=== PATIENT | male | born 1950 | race Asian ===

== ENCOUNTER 2017-05-16 23:49 | Inpatient (IN) | payer MEDICARE, MEDICAID ==
--- NOTE | 2017-05-17 00:15 | ED Physician Chart ---
ED Chief Complaint/HPI - Patient Information Date Seen:: 05/17/17 Time Seen:: 00:10 Chief Complaint:: abnormal labs History of Present Illness:: location: general quality: abnormal labs severity: moderate duration: one day context: ventiilator dependent SNF patient had routine labs today, CBC shows hemoglobin is very low. pt case discussed with PCP Dr. Ochoa who advised send pt to ER for medical screening examination and further treatment. hemoglobin 5.8 and 16.8 hct. pt is vent dependent and prior history of MO/dementia. medics report stable vital signs during transport. mod factors: none assoc s/s: none PSH: tracheostomy, PEG tube hx from medics, paperwork Allergies:: Allergies Allergy/AdvReac Type Severity Reaction Status Date / Time No Known Allergies Allergy Verified 05/17/17 00:10 Historian:: EMS Review:: Nurse's Note Reviewed, EMS run form Reviewed ED Review of Systems - Review of Systems General/Constitutional: No fever (unable to assess due to patient baseline neuro status, vent dependent, noncommunicative) ED Past Medical History - Past Medical History Past Medical History: HTN, DM, CAD, Asthma/COPD, PUD/GERD, Seizures Family History: None Social History: Non Smoker, No Alcohol, No Drug Use, Single, Care Facility Surgical History: PEG/GTube, other (tracheostomy) Psychiatricy History: Dementia Medication: Reviewed Family Medical History - Family Member Mother History Unknown: Yes ED Physical Exam - Physical Examination General/Constitutional: Awake, Well-developed, well-nourished, Alert, No distress, Non-toxic appearing Head: Atraumatic Eyes: Lids, conjuctiva normal Skin: Nl inspection, No skin lesions, No ecchymosis ENMT: External ears, nose nl Neck: Nontender, No nuchal rigidity Respiratory: Nl effort/Exclusion, Clear to Auscultation, No Wheeze/Rhonchi/Rales Cardio Vascular: RRR, No murmur, gallop, rubs, NL S1 S2 GI: No tenderness/rebounding/guarding, Normal BS's, No mass/bruits, No McBurney tenderness (PEG tube site is clean and dry) Extremities: No tenderness or effusion (pt with extensor deformity bilateral lower limbs, ) ED Labs/Radiology/EKG Results - Lab Results Results: Laboratory Tests 05/17/17 05/17/17 05/17/17 00:00 00:00 00:00 WBC 9.9 Corrected WBC (auto) 9.3 RBC 2.25 L Hgb 6.7 L* Hct 19.3 L* MCV 85.8 MCH 29.9 MCHC Differential 34.8 RDW 17.8 Plt Count 238 MPV 5.5 Band Neutrophils % 6 Neutrophils (Manual) 45 Lymphocytes 48 Monocytes 1 L Nucleated RBCs 6.0 H Hypochromia 1+ Platelet Estimate ADEQUATE Polychromasia 1+ Sodium 125 L Potassium 4.0 Chloride 84 L Carbon Dioxide 35.2 H Anion Gap 9.8 BUN 36 H Creatinine 1.0 Est GFR ( Amer) > 60.0 Est GFR (Non-Af Amer) > 60.0 BUN/Creatinine Ratio 36.0 Glucose 140 H Whole Bld Lactic Acid 1.88 Calcium 10.0 Total Bilirubin 0.4 AST 34 ALT 43 Alkaline Phosphatase 153 H Total Protein 6.3 Albumin 2.8 L Globulin 3.5 Albumin/Globulin Ratio 0.8 L - Radiology Results Results: CXR no acute pneumothorax no acute rib fracture no acute infiltrate blunting of left costophrenic angle ER READ - EKG Interpretations Comments:: EKG sinus tachycardia 103 sinus or ectopic atrial tachycardia nonspecific T abnormalities, anterior leads borderline prolonged QT interval no acute ST elevation no acute ST depression Abnormal EKG with chronic findings ER READ ED Assessment - Assessment General Assessment: pt with stable vital signs ventilator settings from [facility] have been reapplied in ER. pt appears visually comfortable, stable blood pressure, normal heart rate. except that PEEP is 30-40s. RT report that when trying to perform tracheal suctioning that the suction tube is able to be passed except the last 5 to 10 cm of tubing. it is possible the patient has a mucus plug or other anatomic abnormality that is preventing full passage of suction tubing. will advise pulmonary consult and possible bronchoscopy, final decision to be made by rn complex care. CXR does not show acute pneumothorax or acute infiltrate, no patchy infiltrates. no obvious suggestion of ARDS. in addition, patient chart is reviewed thoroughly and no indication of acute CVA is reported however, patient facies and upper and lower limbs appear consistent with patient who has had prior CVA. it is possible that [facility] did not send complete past medical history. ED Septic Shock - . Is Septic Shock (SBP<90, OR Lactate>4 mmol\L) present?: No ED Reassessment (Disposition) - Reassessment Reassessment:: pt in stable condition while in ER. vent settings maintained. Reassessment Condition:: Unchanged - Diagnosis Diagnosis:: acute anemia acute hyponatremia acute hypochloremia - Patient Disposition Discharge/Transfer:: Acute Care w/in this hosp Admitted to:: ICU Admitting Medical Physician:: Tello Ochoa Time:: 02:00 Condition at Disposition:: Stable
[2017-05-17 00:25] LABS: MEAN CELL VOLUME 85.8 fl (80-99); MEAN CORPUSCULAR HEMOGLOBIN 29.9 pg (27.0-31.0); MEAN CORPUSCULAR HGB CONC 34.8 pg (28.0-36.0); MEAN PLATELET VOLUME 5.5 fl; PLATELET COUNT 238 Th/cmm (150-400); RED BLOOD COUNT 2.25 Mil/cmm (3.80-5.80); RED CELL DISTRIBUTION WIDTH 17.8 % (11.5-20.0); WHITE BLOOD COUNT 9.9 Th/cmm (4.8-10.8)
[2017-05-17 00:28] LABS: HEMATOCRIT 19.3 % (41.0-60); HEMOGLOBIN 6.7 gm/dL (12-16)
[2017-05-17 00:37] LABS: ALB/GLOB RATIO 0.8 (1.0-1.8); ALBUMIN 2.8 gm/dL (4.2-5.5); ALKALINE PHOSPHATASE 153 U/L (34-104); ANION GAP 9.8 (7.0-16.0); BILIRUBIN,TOTAL 0.4 mg/dL (0.3-1.0); BUN - UREA NITROGEN 36 mg/dL (7-25); CARBON DIOXIDE 35.2 mEq/L (21.0-31.0); CHLORIDE 84 mEq/L (98-107); GFR AFRICAN-AMERICAN > 60.0 ml/min (>90); GFR NON AFRICAN-AMERICAN > 60.0 ml/min; GLUCOSE 140 mg/dL (70-105); SGOT 34 U/L (13-39); SGPT/ALT 43 U/L (7-52); SODIUM SERUM 125 mEq/L (136-145); TOTAL PROTEIN,SERUM 6.3 gm/dL (6.0-8.3)
[2017-05-17 00:52] LABS: BAND NEUTROPHILE 6 % (0-10); CORRECTED WBC 9.3 Th/cmm; HYPOCHROMIA 1+; LYMPHOCYTE 48 % (20-50); MONOCYTE 1 % (2-10); NEUTROPHILS 45 % (40-80); PLATELET ESTIMATE ADEQUATE (NORMAL); POLYCHROMASIA 1+; TOTAL CELLS COUNTED 100
[2017-05-17 01:57] LABS: URINE MICROSCOPIC INDICATED? YES; URINE SOURCE FOLEY PORT
[2017-05-17 02:01] LABS: URINE BILIRUBIN NEGATIVE (NEGATIVE); URINE BLOOD TRACE (NEGATIVE); URINE GLUCOSE (UA) NEGATIVE (NEGATIVE); URINE KETONE NEGATIVE (NEGATIVE); URINE LEUKOCYTE ESTERASE MODERATE (NEGATIVE); URINE NITRATE POSITIVE (NEGATIVE); URINE PROTEIN TRACE mg/dL (NEGATIVE); URINE UROBILINOGEN 0.2 E.U./dL (0.2 - 1.0)
[2017-05-17 02:12] LABS: URINE CLARITY CLEAR (CLEAR); URINE COLOR YELLOW; URINE RBC 0-2 /hpf (0-5)
[2017-05-17 02:13] LABS: URINE BACTERIA MODERATE /hpf (NONE SEEN); URINE EPITHELIAL CELLS FEW /lpf (FEW)
[2017-05-17] MEDS ORDERED: Piperacillin Sodium/Tazobact 3.375 gm Vial IV ONE (02:48)
[2017-05-17 05:05] LABS: EOSINOPHILE ABSOLUTE 0.3 Th/cmm (0.1-0.4); LYMPHOCYTE ABSOLUTE 1.7 Th/cmm (1.5-3.0); MONOCYTE ABSOLUTE 0.8 Th/cmm (0.3-1.0)
[2017-05-17 05:17] LABS: ANION GAP 11.6 (7.0-16.0); BUN - UREA NITROGEN 35 mg/dL (7-25); CALCIUM SERUM 9.9 mg/dL (8.6-10.3); CARBON DIOXIDE 34.6 mEq/L (21.0-31.0); CHLORIDE 84 mEq/L (98-107); CREATININE - SERUM 1.1 mg/dL (0.7-1.3); GFR AFRICAN-AMERICAN > 60.0 ml/min (>90); GFR NON AFRICAN-AMERICAN > 60.0 ml/min; GLUCOSE 110 mg/dL (70-105); POTASSIUM SERUM 4.2 mEq/L (3.5-5.1); SODIUM SERUM 126 mEq/L (136-145)
[2017-05-17 05:20] VITALS: BP 91/34
[2017-05-17 05:24] LABS: HEMATOCRIT 17.2 % (41.0-60); RED BLOOD COUNT 2.01 Mil/cmm (3.80-5.80)
[2017-05-17 05:25] LABS: % LYMPHOCYTES 17.6 % (20.0-50.0); % NEUTROPHILS 71.2 % (40.0-80.0); MEAN CELL VOLUME 85.8 fl (80-99); MEAN CORPUSCULAR HEMOGLOBIN 30.1 pg (27.0-31.0); MEAN PLATELET VOLUME 5.9 fl; PLATELET COUNT 248 Th/cmm (150-400)
[2017-05-17 05:26] LABS: % BASOPHILS 0.5 % (0.0-2.0); % EOSINOPHILS 2.9 % (0.0-5.0); % MONOCYTES 7.8 % (2.0-10.0); NEUTROPHILE ABSOLUTE 6.9 Th/cmm (1.8-8.0)
[2017-05-17 05:28] LABS: WHITE BLOOD COUNT 9.7 Th/cmm (4.8-10.8)
[2017-05-17] MEDS ORDERED: Magnesium Hydroxide (MOM) 30 mL UDC GT PRN (08:11)
--- NOTE | 2017-05-17 08:11 | Diagnostic Imaging Report ---
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 Tracheostomy tube is seen at midline. Increased interstitial lung markings are seen with left basal pleural thickening versus small left effusion. No focal consolidation identified. Heart size normal. Atherosclerosis is noted. Biapical pleural thickening is also noted. The osseous structures are intact. IMPRESSION: Minimal tracheostomy tube, please correlate with clinical findings. Small left effusion versus left basal pleural thickening. Biapical pleural thickening is also noted Chronic interstitial lung changes with no focal consolidation identified. Note, however, faint infiltrative the left base cannot be excluded.
[2017-05-17] MEDS: Chlorhexidine Gluconate 0.12% 15mL Mouthwash MM SCH ×2 (08:57→19:55)
[2017-05-17] MEDS: Sodium Chloride 0.9% 1,000 ML IV SCH ×2 (08:58→21:34)
[2017-05-17] MEDS ORDERED: INSULIN HUMAN REGULAR 100 UNITS/ML UNIT SUBQ SCH (09:00)
[2017-05-17] MEDS ORDERED: Chlorhexidine Gluconate 0.12% 480mL Bottle MM SCH (09:00)
[2017-05-17] MEDS: Pantoprazole 40 mg/Packet GT SCH (09:52)
[2017-05-17] MEDS: Multivitamin w/ Minerals Tab GT SCH (09:52)
[2017-05-17] MEDS ORDERED: VTE Chemical Prophylaxis Screen/Admission MC PRN (11:12)
--- NOTE | 2017-05-17 12:11 | Consultation ---
Consult Note - Consult Note Service Date: 05/17/17 Referring Physician: Tello Ochoa Consult Note: PHYSICIAN Consultation Note: Date of Admission: 05/17/17 Purpose of Consultation: UTI, bronchitis. Chief Complaint: Patient NIKI CORNELL was admitted to location Intensive Care Unit with SEVERE ANEMIA, PNA & UTI. History of Present Illness: The patient is a 70-year-old female with a past medical history of severe dementia, brain surgery, foot surgery, and CVA, brought in from nursing facility for swelling of both lower extremities with redness. The patient also has some redness of the lower abdominal fold. On initial evaluation, the patient was afebrile and WBC count was 11,000. The patient was started on vancomycin and Zosyn and ID consult was called for antibiotic management. Past Medical History: severe dementia, brain surgery, foot surgery, and CVA. Allergies Allergy/AdvReac Type Severity Reaction Status Date / Time No Known Allergies Allergy Verified 05/17/17 00:10 Vital Signs Temp 98.4 F 05/17/17 08:00 Pulse 97 05/17/17 11:00 Resp 14 05/17/17 11:00 BP 118/72 05/17/17 11:00 Pulse Ox 98 05/17/17 11:00 Intake & Output 05/16/17 05/17/17 05/17/17 18:59 06:59 18:59 Output Total 200 Balance -200 Weight (lbs) 58.967 kg Output: Urine 200 Other: # Bowel Movements 1 Stool Characteristics Soft Laboratory Results - last 24 hr 05/17/17 05/17/17 05/17/17 04:35 04:35 04:35 WBC 9.7 RBC 2.01 L Hgb 6.0 L* Hct 17.2 L* D MCV 85.8 MCH 30.1 MCHC Differential 35.0 RDW 18.0 Plt Count 248 MPV 5.9 Neutrophils % 71.2 Lymphocytes % 17.6 L Monocytes % 7.8 Eosinophils % 2.9 Basophils % 0.5 Sodium 126 L Potassium 4.2 Chloride 84 L Carbon Dioxide 34.6 H Anion Gap 11.6 BUN 35 H Creatinine 1.1 Est GFR ( Amer) > 60.0 Est GFR (Non-Af Amer) > 60.0 BUN/Creatinine Ratio 31.8 Glucose 110 H Calcium 9.9 Blood Type O POSITIVE Antibody Screen NEGATIVE Crossmatch See Detail Home Medication Medication Instructions Recorded Type Acetaminophen [Tylenol] 650 mg GT Q4HR PRN 05/17/17 History Albuterol Nebulizer 2.5mg/3mL 2.5 mg IH Q4HR PRN 05/17/17 History [Albuterol Neb UD*] Albuterol/Ipratropium Neb [Duoneb 3 ml HHN Q2HR PRN 05/17/17 History Neb] Amiodarone [Cordarone] 200 mg GT DAILY 05/17/17 History Chlorhexidine Gluconate 0.12% 15 ml MM BID 05/17/17 History [Peridex] Colistimethate [Colistin] 75 mg INH BID 05/17/17 History Hydralazine HCl 10 mg GT Q6H PRN 05/17/17 History Insulin Human Regular [NovoLIN R] See Protocol SUBQ BID 05/17/17 History Ipratropium Neb 0.5 mg/2.5 mL 0.5 mg HHN Q4HR PRN 05/17/17 History [Atrovent Neb 0.5MG/2.5ML] Levetiracetam [Keppra] 500 mg GT BID 05/17/17 History Magnesium Hydroxide [Milk of 30 ml GT Q4H PRN 05/17/17 History Magnesia] Metoclopramide [Reglan] 5 mg GT Q6H PRN 05/17/17 History Metoprolol Tartrate [Lopressor] 12.5 mg GT DAILY 05/17/17 History Multivitamin w/ Minerals 5 ml GT DAILY 05/17/17 History [Theragran M] Pantoprazole [Protonix] 40 mg GT DAILY 05/17/17 History Prednisone 5 mg GT DAILY 05/17/17 History Vit C/Ascorbate Ca/Ascorb Sod 500 mg GT DAILY 05/17/17 History [Vitamin C 500 mg/15 ml Liquid] Current Medications Generic Name Dose Route Start Last Admin Trade Name Freq PRN Reason Stop Dose Admin Acetaminophen 650 mg 05/17/17 08:11 Tylenol GT 07/16/17 08:10 Q4H PRN Pain or Fever >101 Albuterol Sulfate 2.5 mg 05/17/17 08:11 Albuterol 2.5mg/3ml Neb Ud HHN 07/16/17 08:10 Q4HRT PRN Shortness of Breath Albuterol/Ipratropium 3 ml 05/17/17 08:11 Duoneb Neb N 07/16/17 08:10 Q2HRT PRN Shortness of Breath Amiodarone HCl 200 mg 05/17/17 09:00 05/17/17 08:56 Cordarone GT 07/16/17 08:59 Not Given DAILY PAO Ascorbic Acid 500 mg 05/17/17 09:00 05/17/17 09:52 Vitamin C GT 07/16/17 08:59 500 mg DAILY PAO Administration Chlorhexidine Gluconate 15 ml 05/17/17 08:00 05/17/17 08:57 Peridex MM 07/16/17 07:59 15 ml 0800,2000 PAO Administration Chlorhexidine Gluconate 15 ml 05/17/17 09:00 05/17/17 08:56 Peridex MM 07/16/17 08:59 Not Given BID PAO Colistimethate Sodium 75 mg 05/17/17 10:00 05/17/17 09:33 Colistin N 07/16/17 09:59 Not Given BIDRT PAO Hydralazine HCl 10 mg 05/17/17 08:11 Apresoline GT 07/16/17 08:10 Q6H PRN SBP ABOVE 160 Sodium Chloride 1,000 mls @ 150 mls/hr 05/17/17 08:45 05/17/17 08:58 Nacl 0.9% IV 07/16/17 08:44 150 mls/hr .Q6H40M PAO Administration Piperacillin Sod/Tazobactam 50 mls @ 100 mls/hr 05/17/17 11:00 05/17/17 11:07 Sod 3.375 gm/ Sodium Chloride IV 07/16/17 10:59 100 mls/hr Q8H PAO Administration Insulin Aspart 0 units 05/17/17 12:00 Novolog Insulin Sliding Scale SUBQ 07/16/17 11:59 Q6HR [facility] Protocol Ipratropium Concrete 0.5 mg 05/17/17 08:11 Atrovent Neb 0.5mg/2.5ml N 07/16/17 08:10 Q4HRT PRN Shortness of Breath Levetiracetam 500 mg 05/17/17 09:00 05/17/17 09:52 Keppra PO 07/16/17 08:59 500 mg BID PAO Administration Magnesium Hydroxide 30 ml 05/17/17 08:11 Milk Of Magnesia GT 07/16/17 08:10 Q4H PRN Constipation Metoclopramide HCl 5 mg 05/17/17 08:11 Reglan GT 07/16/17 08:10 Q6H PRN gerd Metoprolol Tartrate 12.5 mg 05/17/17 09:00 05/17/17 08:56 Lopressor GT 07/16/17 08:59 Not Given DAILY PAO Miscellaneous 1 05/17/17 03:43 Zosyn Iv Per Pharmacy 07/16/17 03:42 PRN PRN PROTOCOL Miscellaneous 1 05/17/17 11:12 [employer] Prophylaxis Screen/ Admission 07/16/17 11:11 PRN PRN PROTOCOL Pantoprazole Sodium 40 mg 05/17/17 09:00 05/17/17 09:52 Protonix 07/16/17 08:59 40 mg QDAC PAO Administration Prednisone 5 mg 05/17/17 09:00 05/17/17 09:52 Deltasone 07/16/17 08:59 5 mg DAILY PAO Administration Review of Systems: A 12 point ROS was reviewed with the pertinent positive and negatives noted in the HPI. Unable to obtain. So far, the patient has no fever. The patient has swelling and redness of both lower extremities including lower leg, ankle, and foot. The patient also has redness and excoriation of the lower abdominal fold and groins. Social History The patient has no history of smoking, alcohol, or drug use. Family Medical History Non-contributory. Physical Exam: VITAL SIGNS: Currently, temperature is 97.3, pulse 93, respirations 18, blood pressure 115/72, oxygen saturation 96%. GENERAL: The patient is comfortable, lying in the bed, obese. HEENT: Head is normocephalic and atraumatic. Oral cavity moist, pink tongue. Eyes: No pallor, no icterus. PERRLA. EOMI. NECK: Supple. No JVD, no carotid bruit. Trachea midline. CHEST: Bilateral breath sounds. No crackles or wheezing. HEART: S1, S2 within normal limits. Regular rhythm. No murmur, no gallop. ABDOMEN: Soft, nontender, nondistended. Bowel sounds present. The patient has redness and excoriation of the lower abdominal wall including abdominal fold and groins. EXTREMITIES: No cyanosis, no clubbing. The patient has nonpitting edema or swelling of both lower extremities with denudation of the skin as well as some fungal elements. NEUROLOGIC: Not communicating. LABORATORY DATA: Current lab shows WBC count is 11,000, hemoglobin is 14.1, hematocrit is 43.7, platelets are 401,000, neutrophils 68.7%. Sodium 140, potassium 4.3, chloride 106, bicarbonate is 26, BUN is 40, creatinine 1.1, and glucose is 80. IMPRESSION: 1. Bilateral lower extremity cellulitis and swelling, rule out deep vein thrombosis, rule out arterial insufficiency. 2. Abdominal wall cellulitis, secondary infection on Tinea cruris. 3. Obesity. 4. Cerebrovascular accident. RECOMMENDATIONS AND PLAN: Continue vancomycin and Zosyn. We will apply some moisturizer cream like Lac-Hydrin cream and apply Lotrisone to groins and lower abdomen. Thank you Dr. Ochoa for involving me in taking care of this patient. Fernando, Cirilo Taylor M.D. [id number]
[2017-05-17 13:52] LABS: HEMATOCRIT 26.3 % (41.0-60); HEMOGLOBIN 9.3 gm/dL (12-16)
[2017-05-17] MEDS: INSULIN ASPART SLIDING SCALE 100 UNITS/ML UNIT SUBQ SCH ×2 (14:24→18:10)
--- NOTE | 2017-05-17 23:46 | Consultation ---
DATE OF CONSULTATION: 05/17/2017 INFECTIOUS DISEASE CONSULTATION REFERRING PHYSICIAN: Eliel Ochoa M.D. REASON FOR CONSULTATION: Pneumonia, UTI. HISTORY OF PRESENT ILLNESS: The patient is 66-year-old male with a past medical history of vent-dependent respiratory failure, status post cardiopulmonary arrest, dysphagia, G-tube placement, brought in from subacute facility for low hemoglobin. The patient found to have UTI, so ID consult was called for further antibiotic management. The patient has a history of CRE and ESBL positive, multidrug resistant organism. There is no official report available at this moment. ID consult was called for further antibiotic management. The patient was already started on Zosyn. PAST MEDICAL HISTORY: Status post cardiopulmonary arrest, vent-dependent respiratory failure, dysphagia and G-tube placement, anoxic encephalopathy, history of CHF. Hypertension, diabetes mellitus type 2, coronary artery disease, asthma, COPD, PUD, GERD, seizure disorder, status post cardiopulmonary arrest, vent-dependent respiratory failure, anoxic encephalopathy, dysphagia, G-tube placement. ALLERGIES: NKDA. MEDICATIONS: See medication reconciliation sheet. Antibiotic guzman, the patient is receiving Zosyn. FAMILY HISTORY: Not available. SOCIAL HISTORY: The patient lives at a subacute facility. No history of smoking, alcohol or drug use. PAST SURGICAL HISTORY: G-tube placement and tracheostomy. PSYCHIATRIC HISTORY: Dementia, anoxic encephalopathy. REVIEW OF SYSTEMS: The patient unable to give any history, so the patient has no fever, no chills. The patient now vent-dependent respiratory failure. PHYSICAL EXAMINATION: GENERAL: The patient is comfortable lying in the bed, not in acute distress, on ventilator dependence, chronically. Unresponsive. VITAL SIGNS: Show temperature is 98.4 degrees Fahrenheit, pulse is 97, respirations 14, blood pressure 118/72. GENERAL: The patient is comfortable lying in the bed, not in acute distress. HEENT: Head is normocephalic, atraumatic. Oral cavity moist, pink tongue. Eyes: Pallor is present. The patient has palpable right eye. Conjunctivae are erythematous with puss. Left eye is okay. Face is symmetrical. NECK: Supple, no JVD, no bruit. Trach site is clear. CHEST: Bilateral breath sounds. No crackles or wheezing. HEART: S1, S2 within normal limits. Regular rhythm. No murmur or gallop. ABDOMEN: Soft, nontender, nondistended. Bowel sounds present. EXTREMITIES: No cyanosis, no clubbing, no edema. NEUROLOGIC: Unresponsive. LABORATORY DATA: Current lab shows WBC count is 9700, hemoglobin 6, hematocrit 17.2, hematocrit is 248,000, neutrophils 71.2%. Sodium 126, potassium 4.2, chloride 84, bicarbonate is 34.6, BUN is 35, creatinine 1.1, glucose is 110. Urinalysis showed positive nitrite, moderate leukoesterase, rbc's 0-2, wbc's 10-25, moderate bacteria. Chest x-ray shows no consolidations. There is some chronic interstitial changes with no focal consolidation. Faint infiltrate of left breast cannot be excluded. Small left effusion versus left basal pleural thickening, biapical pleural thickening. IMPRESSION: 1. Pneumonia. 2. Urinary tract infection. 3. Right eye conjunctivitis. 4. Vent-dependent respiratory failure. 5. Anoxic encephalopathy. 6. Diabetes mellitus type 2. 7. Hypertension. 8. Coronary artery disease. 9. History of cardiopulmonary arrest. 10. Congestive heart failure. 11. Dysphagia, G-tube placement. 12. Seizure disorder. RECOMMENDATION AND PLAN: We will continue Zosyn. Check the right eye culture. We will give Cipro eyedrops. Thank you, Dr. Ochoa, for involving me in taking care of this patient. JOB# [id number]
[2017-05-18 04:56] LABS: BASOPHILE ABSOLUTE 0.1 Th/cumm (0-0.2); EOSINOPHILE ABSOLUTE 0.4 Th/cmm (0.1-0.4); LYMPHOCYTE ABSOLUTE 1.6 Th/cmm (1.5-3.0); MONOCYTE ABSOLUTE 0.6 Th/cmm (0.3-1.0)
[2017-05-18 04:58] LABS: % BASOPHILS 0.6 % (0.0-2.0); % EOSINOPHILS 3.5 % (0.0-5.0); % LYMPHOCYTES 15.6 % (20.0-50.0); % MONOCYTES 5.4 % (2.0-10.0); % NEUTROPHILS 74.9 % (40.0-80.0); HEMATOCRIT 26.4 % (41.0-60); HEMOGLOBIN 9.3 gm/dL (12-16); MEAN CELL VOLUME 84.5 fl (80-99); MEAN CORPUSCULAR HEMOGLOBIN 29.7 pg (27.0-31.0); MEAN CORPUSCULAR HGB CONC 35.1 pg (28.0-36.0); MEAN PLATELET VOLUME 5.7 fl; NEUTROPHILE ABSOLUTE 7.5 Th/cmm (1.8-8.0); PLATELET COUNT 199 Th/cmm (150-400); RED BLOOD COUNT 3.12 Mil/cmm (3.80-5.80); RED CELL DISTRIBUTION WIDTH 15.2 % (11.5-20.0); WHITE BLOOD COUNT 10.2 Th/cmm (4.8-10.8)
[2017-05-18 05:05] LABS: ANION GAP 9.3 (7.0-16.0); BUN - UREA NITROGEN 28 mg/dL (7-25); CALCIUM SERUM 9.4 mg/dL (8.6-10.3); CARBON DIOXIDE 31.1 mEq/L (21.0-31.0); CHLORIDE 94 mEq/L (98-107); CREATININE - SERUM 1.1 mg/dL (0.7-1.3); GFR AFRICAN-AMERICAN > 60.0 ml/min (>90); GFR NON AFRICAN-AMERICAN > 60.0 ml/min; GLUCOSE 106 mg/dL (70-105); POTASSIUM SERUM 3.4 mEq/L (3.5-5.1); SODIUM SERUM 131 mEq/L (136-145)
[2017-05-18] MEDS: Sodium Chloride 0.9% 1,000 ML IV SCH ×2 (06:00→20:27)
[2017-05-18] MEDS: INSULIN ASPART SLIDING SCALE 100 UNITS/ML UNIT SUBQ SCH ×4 (06:07→19:12)
[2017-05-18] MEDS: Pantoprazole 40 mg/Packet GT SCH (06:48)
[2017-05-18] MEDS: Albuterol/Ipratropium Neb 3 ML AERS HHN PRN ×3 (07:07→15:39)
[2017-05-18 07:21] LABS: ABSOLUTE RETICULOCYTE 37.4 Th/cmm; CORRECTED RETICULOCYTE COUNT 0.7 % (0.5-1.5); HEMATOCRIT 26.4 % (40.0-54.0); RBC RETICULOCYTE COUNT 3.12 Mil/cmm; RETICULOCYTES % COUNTED 1.2 % (0.5-1.5)
[2017-05-18] MEDS: Chlorhexidine Gluconate 0.12% 15mL Mouthwash MM SCH ×2 (08:00→19:42)
[2017-05-18] MEDS: Multivitamin w/ Minerals Tab GT SCH (08:53)
--- NOTE | 2017-05-18 13:29 | Consultation ---
Consult Note - Consult Note Service Date: 05/17/17 Referring Physician: Tello Ochoa Consult Note: PHYSICIAN Consultation Note: Date of Admission: 05/17/17 Purpose of Consultation: Chief Complaint: Patient NIKI CORNELL was admitted to location Intensive Care Unit with SEVERE ANEMIA, PNA & UTI. History of Present Illness: The patient is 66-year-old male with a past medical history of vent-dependent respiratory failure, status post cardiopulmonary arrest, dysphagia, G-tube placement, brought in from subacute facility for low hemoglobin. The patient found to have UTI, so ID consult was called for further antibiotic management. The patient has a history of CRE and ESBL positive, multidrug resistant organism. There is no official report available at this moment. ID consult was called for further antibiotic management. The patient was already started on Zosyn. Past Medical History: Status post cardiopulmonary arrest, vent-dependent respiratory failure, dysphagia and G-tube placement, anoxic encephalopathy, history of CHF. Hypertension, diabetes mellitus type 2, coronary artery disease, asthma, COPD, PUD, GERD, seizure disorder, status post cardiopulmonary arrest, vent-dependent respiratory failure, anoxic encephalopathy, dysphagia, G-tube placement. Allergies Allergy/AdvReac Type Severity Reaction Status Date / Time No Known Allergies Allergy Verified 05/17/17 00:10 Vital Signs Temp 97.4 F 05/18/17 08:00 Pulse 79 05/18/17 11:37 Resp 14 05/18/17 11:00 BP 104/47 05/18/17 11:00 Pulse Ox 98 05/18/17 11:37 Intake & Output 05/17/17 05/18/17 05/18/17 18:59 06:59 18:59 Intake Total 1010 2050 820 Output Total 900 1400 Balance 110 2050 -580 Weight (lbs) 63.503 kg 63.548 kg 62.959 kg Intake: Intake, IV Amount 50 2050 100 Piperacillin Sodium/ 50 50 100 Tazobact 3.375 gm In Sodium Chloride 0.9% 50 ml @ 100 mls/hr IV Q8H [facility] Rx#:[id number] Sodium Chloride 0.9% 1, 2000 000 ml @ 150 mls/hr IV . Q6H40M [facility] Rx#:[id number] Tube Feeding 460 720 Blood Product 500 Output: Urine 900 1400 Other: # Bowel Movements 1 0 Laboratory Results - last 24 hr 05/17/17 05/17/17 05/17/17 04:35 13:30 14:13 WBC RBC Hgb 9.3 L D Hct 26.3 L D MCV MCH MCHC Differential RDW Plt Count MPV Neutrophils % Lymphocytes % Monocytes % Eosinophils % Basophils % Total Retics Counted Absolute Retic Corrected Retic Count Sodium Potassium Chloride Carbon Dioxide Anion Gap BUN Creatinine Est GFR ( Amer) Est GFR (Non-Af Amer) BUN/Creatinine Ratio Glucose POC Glucose 168 H Calcium Stool Occult Blood Blood Type O POSITIVE Antibody Screen NEGATIVE Crossmatch See Detail 05/17/17 05/17/17 05/18/17 18:00 18:08 00:45 WBC RBC Hgb Hct MCV MCH MCHC Differential RDW Plt Count MPV Neutrophils % Lymphocytes % Monocytes % Eosinophils % Basophils % Total Retics Counted Absolute Retic Corrected Retic Count Sodium Potassium Chloride Carbon Dioxide Anion Gap BUN Creatinine Est GFR ( Amer) Est GFR (Non-Af Amer) BUN/Creatinine Ratio Glucose POC Glucose 170 H 96 Calcium Stool Occult Blood NEGATIVE Blood Type Antibody Screen Crossmatch 05/18/17 05/18/17 05/18/17 04:38 04:38 04:38 WBC 10.2 RBC 3.12 L Hgb 9.3 L Hct 26.4 L 26.4 L MCV 84.5 MCH 29.7 MCHC Differential 35.1 RDW 15.2 Plt Count 199 MPV 5.7 Neutrophils % 74.9 Lymphocytes % 15.6 L Monocytes % 5.4 Eosinophils % 3.5 Basophils % 0.6 Total Retics Counted 1.2 Absolute Retic 37.4 Corrected Retic Count 0.7 Sodium 131 L Potassium 3.4 L Chloride 94 L Carbon Dioxide 31.1 H Anion Gap 9.3 BUN 28 H Creatinine 1.1 Est GFR ( Amer) > 60.0 Est GFR (Non-Af Amer) > 60.0 BUN/Creatinine Ratio 25.5 Glucose 106 H POC Glucose Calcium 9.4 Stool Occult Blood Blood Type Antibody Screen Crossmatch 05/18/17 05/18/17 05:54 11:39 WBC RBC Hgb Hct MCV MCH MCHC Differential RDW Plt Count MPV Neutrophils % Lymphocytes % Monocytes % Eosinophils % Basophils % Total Retics Counted Absolute Retic Corrected Retic Count Sodium Potassium Chloride Carbon Dioxide Anion Gap BUN Creatinine Est GFR ( Amer) Est GFR (Non-Af Amer) BUN/Creatinine Ratio Glucose POC Glucose 140 H 155 H Calcium Stool Occult Blood Blood Type Antibody Screen Crossmatch Home Medication Medication Instructions Recorded Type Acetaminophen [Tylenol] 650 mg GT Q4HR PRN 05/17/17 History Albuterol Nebulizer 2.5mg/3mL 2.5 mg IH Q4HR PRN 05/17/17 History [Albuterol Neb UD*] Albuterol/Ipratropium Neb [Duoneb 3 ml HHN Q2HR PRN 05/17/17 History Neb] Amiodarone [Cordarone] 200 mg GT DAILY 05/17/17 History Chlorhexidine Gluconate 0.12% 15 ml MM BID 05/17/17 History [Peridex] Colistimethate [Colistin] 75 mg INH BID 05/17/17 History Hydralazine HCl 10 mg GT Q6H PRN 05/17/17 History Insulin Human Regular [NovoLIN R] See Protocol SUBQ BID 05/17/17 History Ipratropium Neb 0.5 mg/2.5 mL 0.5 mg HHN Q4HR PRN 05/17/17 History [Atrovent Neb 0.5MG/2.5ML] Levetiracetam [Keppra] 500 mg GT BID 05/17/17 History Magnesium Hydroxide [Milk of 30 ml GT Q4H PRN 05/17/17 History Magnesia] Metoclopramide [Reglan] 5 mg GT Q6H PRN 05/17/17 History Metoprolol Tartrate [Lopressor] 12.5 mg GT DAILY 05/17/17 History Multivitamin w/ Minerals 5 ml GT DAILY 05/17/17 History [Theragran M] Pantoprazole [Protonix] 40 mg GT DAILY 05/17/17 History Prednisone 5 mg GT DAILY 05/17/17 History Vit C/Ascorbate Ca/Ascorb Sod 500 mg GT DAILY 05/17/17 History [Vitamin C 500 mg/15 ml Liquid] Current Medications Generic Name Dose Route Start Last Admin Trade Name Freq PRN Reason Stop Dose Admin Acetaminophen 650 mg 05/17/17 08:11 Tylenol GT 07/16/17 08:10 Q4H PRN Pain or Fever >101 Albuterol Sulfate 2.5 mg 05/17/17 08:11 Albuterol 2.5mg/3ml Neb Ud HHN 07/16/17 08:10 Q4HRT PRN Shortness of Breath Albuterol/Ipratropium 3 ml 05/17/17 08:11 05/18/17 11:37 Duoneb Neb [facility] 07/16/17 08:10 3 ml Q2HRT PRN Administration Shortness of Breath Amiodarone HCl 200 mg 05/17/17 09:00 05/18/17 10:05 Cordarone GT 07/16/17 08:59 200 mg DAILY PAO Administration Ascorbic Acid 500 mg 05/17/17 09:00 05/18/17 08:54 Vitamin C GT 07/16/17 08:59 500 mg DAILY PAO Administration Chlorhexidine Gluconate 15 ml 05/17/17 08:00 05/18/17 08:00 Peridex MM 07/16/17 07:59 15 ml 0800,2000 PAO Administration Ciprofloxacin 2 drop 05/17/17 14:00 05/18/17 10:03 Cipro 0.3% Ophth Soln RIGHT EYE 07/16/17 13:59 2 drop Q6H PAO Administration Hydralazine HCl 10 mg 05/17/17 08:11 Apresoline GT 07/16/17 08:10 Q6H PRN SBP ABOVE 160 Sodium Chloride 1,000 mls @ 150 mls/hr 05/17/17 08:45 05/18/17 06:00 Nacl 0.9% IV 07/16/17 08:44 150 mls/hr .Q6H40M PAO Administration Piperacillin Sod/Tazobactam 50 mls @ 100 mls/hr 05/17/17 11:00 05/18/17 11:07 Sod 3.375 gm/ Sodium Chloride IV 07/16/17 10:59 Infused Q8H PAO Infusion Insulin Aspart 0 units 05/17/17 12:00 05/18/17 12:03 Novolog Insulin Sliding Scale SUBQ 07/16/17 11:59 2 units Q6HR PAO Administration Protocol Ipratropium [place] 0.5 mg 05/17/17 08:11 Atrovent Neb 0.5mg/2.5ml N 07/16/17 08:10 Q4HRT PRN Shortness of Breath Levetiracetam 500 mg 05/17/17 09:00 05/18/17 08:54 Keppra PO 07/16/17 08:59 500 mg BID PAO Administration Magnesium Hydroxide 30 ml 05/17/17 08:11 Milk Of Magnesia GT 07/16/17 08:10 Q4H PRN Constipation Metoclopramide HCl 5 mg 05/17/17 08:11 Reglan GT 07/16/17 08:10 Q6H PRN gerd Metoprolol Tartrate 12.5 mg 05/17/17 09:00 05/18/17 08:54 Lopressor GT 07/16/17 08:59 12.5 mg DAILY PAO Administration Miscellaneous 1 05/17/17 03:43 Zosyn Iv Per Pharmacy 07/16/17 03:42 PRN PRN PROTOCOL Miscellaneous 1 05/17/17 11:12 Vte Chemical Prophylaxis Screen/ Admission 07/16/17 11:11 PRN PRN PROTOCOL Pantoprazole Sodium 40 mg 05/17/17 09:00 05/18/17 06:48 Protonix GT 07/16/17 08:59 40 mg QDAC PAO Administration Prednisone 5 mg 05/17/17 09:00 05/18/17 08:54 Deltasone GT 07/16/17 08:59 5 mg DAILY PAO Administration Review of Systems: A 12 point ROS was reviewed with the pertinent positive and negatives noted in the HPI. Social History Smoking Status Unknown if ever smoked Family Medical History Family Medical History Start: 05/17/17 03: 45 Freq: ONCE Status: Active Document 05/17/17 03:45 ANN MARIE (Rec: 05/17/17 04:49 ANN MARIE [id number]) Family Medical History Mother History Unknown Yes Physical Exam: GENERAL: The patient is comfortable lying in the bed, not in acute distress, on ventilator dependence, chronically. Unresponsive. VITAL SIGNS: Show temperature is 98.4 degrees Fahrenheit, pulse is 97, respirations 14, blood pressure 118/72. GENERAL: The patient is comfortable lying in the bed, not in acute distress. HEENT: Head is normocephalic, atraumatic. Oral cavity moist, pink tongue. Eyes: Pallor is present. The patient has palpable right eye. Conjunctivae are erythematous with puss. Left eye is okay. Face is symmetrical. NECK: Supple, no JVD, no bruit. Trach site is clear. CHEST: Bilateral breath sounds. No crackles or wheezing. HEART: S1, S2 within normal limits. Regular rhythm. No murmur or gallop. ABDOMEN: Soft, nontender, nondistended. Bowel sounds present. EXTREMITIES: No cyanosis, no clubbing, no edema. NEUROLOGIC: Unresponsive. LABORATORY DATA: Current lab shows WBC count is 9700, hemoglobin 6, hematocrit 17.2, hematocrit is 248,000, neutrophils 71.2%. Sodium 126, potassium 4.2, chloride 84, bicarbonate is 34.6, BUN is 35, creatinine 1.1, glucose is 110. Urinalysis showed positive nitrite, moderate leukoesterase, rbc's 0-2, wbc's 10-25, moderate bacteria. Chest x-ray shows no consolidations. There is some chronic interstitial changes with no focal consolidation. Faint infiltrate of left breast cannot be excluded. Small left effusion versus left basal pleural thickening, biapical pleural thickening. IMPRESSION: 1. Pneumonia. 2. Urinary tract infection. 3. Right eye conjunctivitis. 4. Vent-dependent respiratory failure. 5. Anoxic encephalopathy. 6. Diabetes mellitus type 2. 7. Hypertension. 8. Coronary artery disease. 9. History of cardiopulmonary arrest. 10. Congestive heart failure. 11. Dysphagia, G-tube placement. 12. Seizure disorder. RECOMMENDATION AND PLAN: Continue Zosyn. Check the right eye culture. We will give Cipro eyedrops. Thank you, Dr. Ochoa, for involving me in taking care of this patient. Signed, Cirilo Taylor M.D. 05/18/[id number]
--- NOTE | 2017-05-18 13:32 | Infectious Disease Prog Note ---
Infectious Disease Subjective - Review of Systems Service Date: 05/18/17 Subjective: No fever. Infectious Disease Objective - Results Result Diagrams: 05/18/17 04:38 05/18/17 04:38 Recent Labs: Laboratory Last Values WBC 10.2 Th/cmm (4.8-10.8) 05/18/17 04:38 Corrected WBC (auto) 9.3 Th/cmm 05/17/17 00:00 RBC 3.12 Mil/cmm (3.80-5.80) L 05/18/17 04:38 Hgb 9.3 gm/dL (12-16) L 05/18/17 04:38 Hct 26.4 % (40.0-54.0) L 05/18/17 04:38 MCV 84.5 fl (80-99) 05/18/17 04:38 MCH 29.7 pg (27.0-31.0) 05/18/17 04:38 MCHC Differential 35.1 pg (28.0-36.0) 05/18/17 04:38 RDW 15.2 % (11.5-20.0) 05/18/17 04:38 Plt Count 199 Th/cmm (150-400) 05/18/17 04:38 MPV 5.7 fl 05/18/17 04:38 Neutrophils % 74.9 % (40.0-80.0) 05/18/17 04:38 Band Neutrophils % 6 % (0-10) 05/17/17 00:00 Lymphocytes % 15.6 % (20.0-50.0) L 05/18/17 04:38 Monocytes % 5.4 % (2.0-10.0) 05/18/17 04:38 Eosinophils % 3.5 % (0.0-5.0) 05/18/17 04:38 Basophils % 0.6 % (0.0-2.0) 05/18/17 04:38 Neutrophils (Manual) 45 % (40-80) 05/17/17 00:00 Lymphocytes 48 % (20-50) 05/17/17 00:00 Monocytes 1 % (2-10) L 05/17/17 00:00 Nucleated RBCs 6.0 % (0-0) H 05/17/17 00:00 Hypochromia 1+ 05/17/17 00:00 Platelet Estimate ADEQUATE (NORMAL) 05/17/17 00:00 Polychromasia 1+ 05/17/17 00:00 Total Retics Counted 1.2 % (0.5-1.5) 05/18/17 04:38 Absolute Retic 37.4 Th/cmm 05/18/17 04:38 Corrected Retic Count 0.7 % (0.5-1.5) 05/18/17 04:38 Sodium 131 mEq/L (136-145) L 05/18/17 04:38 Potassium 3.4 mEq/L (3.5-5.1) L 05/18/17 04:38 Chloride 94 mEq/L (98-107) L 05/18/17 04:38 Carbon Dioxide 31.1 mEq/L (21.0-31.0) H 05/18/17 04:38 Anion Gap 9.3 (7.0-16.0) 05/18/17 04:38 BUN 28 mg/dL (7-25) H 05/18/17 04:38 Creatinine 1.1 mg/dL (0.7-1.3) 05/18/17 04:38 Est GFR ( Amer) > 60.0 ml/min (>90) 05/18/17 04:38 Est GFR (Non-Af Amer) > 60.0 ml/min 05/18/17 04:38 BUN/Creatinine Ratio 25.5 05/18/17 04:38 Glucose 106 mg/dL (70-105) H 05/18/17 04:38 POC Glucose 155 MG/DL (70 - 105) H 05/18/17 11:39 Whole Bld Lactic Acid 1.88 mmol/L (0.60-1.99) 05/17/17 00:00 Calcium 9.4 mg/dL (8.6-10.3) 05/18/17 04:38 Total Bilirubin 0.4 mg/dL (0.3-1.0) 05/17/17 00:00 AST 34 U/L (13-39) 05/17/17 00:00 ALT 43 U/L (7-52) 05/17/17 00:00 Alkaline Phosphatase 153 U/L (34-104) H 05/17/17 00:00 Total Protein 6.3 gm/dL (6.0-8.3) 05/17/17 00:00 Albumin 2.8 gm/dL (4.2-5.5) L 05/17/17 00:00 Globulin 3.5 gm/dL 05/17/17 00:00 Albumin/Globulin Ratio 0.8 (1.0-1.8) L 05/17/17 00:00 Urine Source [place] 05/17/17 01:20 Urine Color YELLOW 05/17/17 01:20 Urine Clarity CLEAR (CLEAR) 05/17/17 01:20 Urine pH 7.0 (4.6 - 8.0) 05/17/17 01:20 Ur Specific [place] <= 1.005 (1.005-1.030) 05/17/17 01:20 Urine Protein TRACE mg/dL (NEGATIVE) 05/17/17 01:20 Urine Glucose (UA) NEGATIVE mg/dL (NEGATIVE) 05/17/17 01:20 Urine Ketones NEGATIVE mg/dL (NEGATIVE) 05/17/17 01:20 Urine Blood TRACE (NEGATIVE) 05/17/17 01:20 Urine Nitrate POSITIVE (NEGATIVE) H 05/17/17 01:20 Urine Bilirubin NEGATIVE (NEGATIVE) 05/17/17 01:20 Urine Urobilinogen 0.2 E.U./dL (0.2 - 1.0) 05/17/17 01:20 Ur Leukocyte Esterase MODERATE (NEGATIVE) H 05/17/17 01:20 Urine RBC 0-2 /hpf (0-5) H 05/17/17 01:20 Urine WBC 10-25 /hpf (0-5) H 05/17/17 01:20 Ur Epithelial Cells FEW /lpf (FEW) 05/17/17 01:20 Urine Bacteria MODERATE /hpf (NONE SEEN) H 05/17/17 01:20 Stool Occult Blood NEGATIVE (NEGATIVE) 05/17/17 18:00 Blood Type O POSITIVE 05/17/17 04:35 Antibody Screen NEGATIVE 05/17/17 04:35 Crossmatch See Detail 05/17/17 04:35 - Physical Exam Vitals and I&O: Vital Signs Temp 97.4 F 05/18/17 08:00 Pulse 79 05/18/17 11:37 Resp 14 05/18/17 11:00 BP 104/47 05/18/17 11:00 Pulse Ox 98 05/18/17 11:37 Intake & Output 05/17/17 05/18/17 05/18/17 18:59 06:59 18:59 Intake Total 1010 2050 820 Output Total 900 1400 Balance 110 0 -580 Weight (lbs) 63.503 kg 63.548 kg 62.959 kg Intake: Intake, IV Amount 50 2050 100 Piperacillin Sodium/ 50 50 100 Tazobact 3.375 gm In Sodium Chloride 0.9% 50 ml @ 100 mls/hr IV Q8H [facility] Rx#:[id number] Sodium Chloride 0.9% 1, 2000 000 ml @ 150 mls/hr IV . Q6H40M [facility] Rx#:[id number] Tube Feeding 460 720 Blood Product 500 Output: Urine 900 1400 Other: # Bowel Movements 1 0 Active Medications: Current Medications Acetaminophen (Tylenol) 650 mg GT Q4H PRN PRN Reason: Pain or Fever >101 Stop: 07/16/17 08:10 Albuterol Sulfate (Albuterol 2.5mg/3ml Neb Ud) 2.5 mg HHN Q4HRT PRN PRN Reason: Shortness of Breath Stop: 07/16/17 08:10 Albuterol/Ipratropium (Duoneb Neb) 3 ml HHN Q2HRT PRN PRN Reason: Shortness of Breath Stop: 07/16/17 08:10 Last Admin: 05/18/17 11:37 Dose: 3 ml Amiodarone HCl (Cordarone) 200 mg GT DAILY [facility] Stop: 07/16/17 08:59 Last Admin: 05/18/17 10:05 Dose: 200 mg Ascorbic Acid (Vitamin C) 500 mg GT DAILY [facility] Stop: 07/16/17 08:59 Last Admin: 05/18/17 08:54 Dose: 500 mg Chlorhexidine Gluconate (Peridex) 15 ml MM 0800,2000 [facility] Stop: 07/16/17 07:59 Last Admin: 05/18/17 08:00 Dose: 15 ml Ciprofloxacin (Cipro 0.3% Ophth Soln) 2 drop RIGHT EYE Q6H [facility] Stop: 07/16/17 13:59 Last Admin: 05/18/17 10:03 Dose: 2 drop Hydralazine HCl (Apresoline) 10 mg GT Q6H PRN PRN Reason: SBP ABOVE 160 Stop: 07/16/17 08:10 Sodium Chloride (Nacl 0.9%) 1,000 mls @ 150 mls/hr IV .Q6H40M [facility]O Stop: 07/16/17 08:44 Last Admin: 05/18/17 06:00 Dose: 150 mls/hr Piperacillin Sod/Tazobactam (Sod 3.375 gm/ Sodium Chloride) 50 mls @ 100 mls/ hr IV Q8H [facility]O Stop: 07/16/17 10:59 Last Infusion: 05/18/17 11:07 Dose: Infused Insulin Aspart (Novolog Insulin Sliding Scale) 0 units SUBQ Q6HR PAO PRN Reason: Protocol Stop: 07/16/17 11:59 Last Admin: 05/18/17 12:03 Dose: 2 units Ipratropium [place] (Atrovent Neb 0.5mg/2.5ml) 0.5 mg HHN Q4HRT PRN PRN Reason: Shortness of Breath Stop: 07/16/17 08:10 Levetiracetam (Keppra) 500 mg PO BID [facility] Stop: 07/16/17 08:59 Last Admin: 05/18/17 08:54 Dose: 500 mg Magnesium Hydroxide (Milk Of Magnesia) 30 ml GT Q4H PRN PRN Reason: Constipation Stop: 07/16/17 08:10 Metoclopramide HCl (Reglan) 5 mg GT Q6H PRN PRN Reason: gerd Stop: 07/16/17 08:10 Metoprolol Tartrate (Lopressor) 12.5 mg GT DAILY [facility] Stop: 07/16/17 08:59 Last Admin: 05/18/17 08:54 Dose: 12.5 mg Miscellaneous (Zosyn Iv Per Pharmacy) 1 ea PRN PRN PRN Reason: PROTOCOL Stop: 07/16/17 03:42 Miscellaneous (Vte Chemical Prophylaxis Screen/ Admission) 1 [facility] PRN PRN PRN Reason: PROTOCOL Stop: 07/16/17 11:11 Pantoprazole Sodium (Protonix) 40 mg GT QDAC [facility] Stop: 07/16/17 08:59 Last Admin: 05/18/17 06:48 Dose: 40 mg Prednisone (Deltasone) 5 mg GT DAILY [facility] Stop: 07/16/17 08:59 Last Admin: 05/18/17 08:54 Dose: 5 mg General: no acute distress, well developed, well nourished HEENT: atraumatic, normocephalic, PERRLA, EOMI, moist mucous membrane, other ( right eye erythematous, no pus,) Neck: supple, tracheostomy, no thyromegaly, no lymphadenopathy, no rigid Cardiovascular: S1S2, regular, systolic murmur Lungs: clear to percussion, rhonchi Abdomen: soft, no tender, no distended, no rebound Extremities: no cyanosis, no clubbing, no edema Neurological: other (open eyes.) Skin: other (superficial excoriations and ulcer on inner part of b/l gluteal area.) Infectious Disease Assmt/Plan - Assessment Assessment: IMPRESSION: 1. Pneumonia. 2. Urinary tract infection. 3. Right eye conjunctivitis. 4. Vent-dependent respiratory failure. 5. Anoxic encephalopathy. 6. Diabetes mellitus type 2. 7. Hypertension. 8. Coronary artery disease. 9. History of cardiopulmonary arrest. 10. Congestive heart failure. 11. Dysphagia, G-tube placement. 12. Seizure disorder. - Plan Plan: RECOMMENDATION AND PLAN: Continue Zosyn. Check the right eye culture. continue Cipro eyedrops. Nutritional Asmnt/Malnutr-PDOC - Dietary Evaluation Malnutrition Findings (Please click <Entered> for more info): Nutritional Asmnt/Malnutrition Start: 05/17/17 07: 59 Text: Status: Complete Freq: Document 05/18/17 09:30 [email or web address] (Rec: 05/18/17 09:41 [email or web address]) Nutritional Asmnt/Malnutrition Patient General Information Nutritional Screening High Risk Diagnosis severe anemia, PNA, UTI Pertinent Medical Hx/Surgical Hx vent dependent, PEG, dysphagia , CHF, HTN, DM, CAD, COPD, PUD , GERD, Seizure Subjective Information Pt on vent. TF running @ goal rate. No residuals noted. Current Diet Order/ Nutrition Support Fibersource HN @ 60 ml/hr Patient / S.O Not Indicated Pertinent Medications vit c, cipro, insulin, milk of magnesia, reglan, protonix, prednisone Pertinent Labs (05/18) Na: 131, K: 3.4, BUN: 28, glucose: 96-170, alk phos: 153 Nutritional Hx/Data Height 1.63 m Height (Calculated Centimeters) 162.6 Current Weight (lbs) 63.503 kg Weight (Calculated Kilograms) 63.5 Weight (Calculated Grams) 00964.9 [place] Body Weight 130 lbs % [place] Body Weight 108 Body Mass Index (BMI) 24.0 Weight Status Approriate GI Symptoms GI Symptoms None Last BM 05/17 Difficult in: Swallowing Skin Integrity/Comment: pressure ulcer to sacrum, awaiting wound consult for staging Estimated Nutritional Goals BEE in Kcals: Using Current wt Calories/Kcals/Kg 25-30 Kcals Calculated 6929-8704 Protein: Using Current wt Protein g/k-1.2 Protein Calculated 64-77 g Fluid: ml 8792-5490 mL (1 mL/kcal) Nutritional Problem 2. Problem Problem altered nutrition related lab values Etiology pt on non diabetic TF Signs/Symptoms: glcose: 96-170 1. Problem Problem increased nutrient needs Etiology wounds Signs/Symptoms: pressure ulcer to sacrum Intervention/Recommendation Comments Recommend change TF to Diabetisource AC @ 65 ml/hr x 20 hours to provide 1300 mL total volume, 1560 kcals, 78 g pro, 1061 mL free h2o. Flush with 100 mL q 4 hours. Expected Outcomes/Goals Expected Outcomes/Goals goal: meet >75% of needs, improved skin integrity monitor wts, labs, skin, PO intake
[2017-05-18 15:05] LABS: ALLEN TEST YES; pH 7.55 (7.35-7.45)
--- NOTE | 2017-05-18 16:35 | Consultation ---
DATE OF CONSULTATION: 05/17/[address] Ochoa. Thank you very much Dr. Ochoa for this consultation. HISTORY OF PRESENT ILLNESS: The patient is a 66-year-old male with history of chronic respiratory failure, ventilator dependent, who was found to have low hemoglobin on a CBC check and was transferred and admitted for further treatment and management. In the Emergency Room, hemoglobin was 6.7, is admitted to receive blood transfusion. The patient has history of chronic respiratory failure, dementia, dysphagia. No other history can be obtained at this time. REVIEW OF SYSTEMS: Unable to obtain because of the patient's condition. PHYSICAL EXAMINATION: GENERAL: On the vent, not in acute distress. VITAL SIGNS: Temperature is 98.4, pulse is 90, respiration are 17, blood pressure 126/80, saturation 100%. HEENT: Atraumatic and normocephalic. Pupils equal and reactive to light and accommodation. Ears, nose, and throat are normal. NECK: Supple. No JVD. CHEST: There is rhonchi in bases. HEART: Regular rate and rhythm. ABDOMEN: Soft. EXTREMITIES: No edema. LABORATORY DATA: Hemoglobin up to 9.3 after transfusion. WBC is 9.7, platelets 248. Sodium 126, potassium 4.2, BUN is 35, creatinine 1.1. UA showed positive nitrites and leukocyte esterase and WBCs. Chest x-ray showed some atelectasis left base, possible early pneumonia. IMPRESSION: 1. Respiratory failure, [id number]. 2. Severe anemia. 3. History of cerebrovascular accident, status post CELL ROOM OPERATOR shunt. 4. Urinary tract infection since atelectasis. 5. Pneumonia. PLAN: 1. IV antibiotics. 2. Nebulizer treatment. 3. observe hemoglobin. 4. Tracheostomy leak sometimes positional, some air leak, might need to change it to extra long if the problem persists. For now, appears to be doing ok. Thank you. I will follow the patient with you. JOB# [id number] YVETTE
[2017-05-18] MEDS: Albuterol Nebulizer 2.5mg/3mL HHN PRN (19:19)
[2017-05-18] MEDS: Ipratropium Neb 0.5 mg/2.5 mL UD HHN PRN (19:19)
[2017-05-19] MEDS: Ipratropium Neb 0.5 mg/2.5 mL UD HHN PRN (02:30)
[2017-05-19] MEDS: Albuterol Nebulizer 2.5mg/3mL HHN PRN (02:30)
[2017-05-19] MEDS: Sodium Chloride 0.9% 1,000 ML IV SCH ×3 (04:23→17:12)
[2017-05-19] MEDS: INSULIN ASPART SLIDING SCALE 100 UNITS/ML UNIT SUBQ SCH ×4 (05:36→18:22)
[2017-05-19] MEDS: Pantoprazole 40 mg/Packet GT SCH (06:30)
[2017-05-19] MEDS: Albuterol/Ipratropium Neb 3 ML AERS HHN PRN ×4 (07:12→19:35)
[2017-05-19 08:15] LABS: FOLIC ACID >20.0 ng/mL (>3.0)
--- NOTE | 2017-05-19 08:28 | Diagnostic Imaging Report ---
CHEST X-RAY: AP view INDICATION: Status post tracheostomy tube placement COMPARISON: 05/17/2017 FINDINGS: A new Midline tracheostomy tube is noted. Right-sided LARRIMAN HELPER shunt is noted. Developing CHF is seen with small effusions and bilateral hazy infiltrates. No evidence of pneumothorax. Heart size is borderline prominent. IMPRESSION: Interval tracheostomy tube exchange, correlate clinically Developing CHF with small effusions and bilateral hazy infiltrates. No evidence of pneumothorax.
--- NOTE | 2017-05-19 08:29 | Diagnostic Imaging Report ---
CHEST X-RAY: AP view INDICATION: Left PICC line insertion COMPARISON: Chest x-ray 05/18/2017 at 14:19 FINDINGS: Tracheostomy tube is noted. Left PICC line is seen with tip in SVC. Right PRINTING SERVICES COORDINATOR shunt is stable. Mild congestive changes are seen with small effusions. Heart size is borderline prominent. IMPRESSION: Interval left PICC line placement with tip in the SVC. Mild congestive changes small effusions. Hazy infiltrates at the lung bases cannot be excluded.
[2017-05-19] MEDS: Chlorhexidine Gluconate 0.12% 15mL Mouthwash MM SCH ×2 (08:50→21:13)
[2017-05-19] MEDS: Multivitamin w/ Minerals Tab GT SCH (08:50)
--- NOTE | 2017-05-19 14:56 | Infectious Disease Prog Note ---
Infectious Disease Subjective - Review of Systems Service Date: 05/19/17 Subjective: No fever. on the ventilator. Infectious Disease Objective - Results Result Diagrams: 05/20/17 07:36 05/20/17 04:15 Recent Labs: Laboratory Last Values WBC 10.2 Th/cmm (4.8-10.8) 05/18/17 04:38 Corrected WBC (auto) 9.3 Th/cmm 05/17/17 00:00 RBC 3.12 Mil/cmm (3.80-5.80) L 05/18/17 04:38 Hgb 9.3 gm/dL (12-16) L 05/18/17 04:38 Hct 26.4 % (40.0-54.0) L 05/18/17 04:38 MCV 84.5 fl (80-99) 05/18/17 04:38 MCH 29.7 pg (27.0-31.0) 05/18/17 04:38 MCHC Differential 35.1 pg (28.0-36.0) 05/18/17 04:38 RDW 15.2 % (11.5-20.0) 05/18/17 04:38 Plt Count 199 Th/cmm (150-400) 05/18/17 04:38 MPV 5.7 fl 05/18/17 04:38 Neutrophils % 74.9 % (40.0-80.0) 05/18/17 04:38 Band Neutrophils % 6 % (0-10) 05/17/17 00:00 Lymphocytes % 15.6 % (20.0-50.0) L 05/18/17 04:38 Monocytes % 5.4 % (2.0-10.0) 05/18/17 04:38 Eosinophils % 3.5 % (0.0-5.0) 05/18/17 04:38 Basophils % 0.6 % (0.0-2.0) 05/18/17 04:38 Neutrophils (Manual) 45 % (40-80) 05/17/17 00:00 Lymphocytes 48 % (20-50) 05/17/17 00:00 Monocytes 1 % (2-10) L 05/17/17 00:00 Nucleated RBCs 6.0 % (0-0) H 05/17/17 00:00 Hypochromia 1+ 05/17/17 00:00 Platelet Estimate ADEQUATE (NORMAL) 05/17/17 00:00 Polychromasia 1+ 05/17/17 00:00 Total Retics Counted 1.2 % (0.5-1.5) 05/18/17 04:38 Absolute Retic 37.4 Th/cmm 05/18/17 04:38 Corrected Retic Count 0.7 % (0.5-1.5) 05/18/17 04:38 Specimen Source Arterial 05/18/17 14:58 Sample Site Left Radial 05/18/17 14:58 pH 7.55 (7.35-7.45) H 05/18/17 14:58 pCO2 35.0 mmHg (35.0-45.0) 05/18/17 14:58 pO2 107.0 mmHg (80.0-100.0) H 05/18/17 14:58 HCO3 31.1 mEq/L (20.0-26.0) H 05/18/17 14:58 Base Excess 7.9 mEq/L (-3.0-3.0) H 05/18/17 14:58 O2 Saturation 99.0 % (92.0-100.0) 05/18/17 14:58 Nader Test YES 05/18/17 14:58 Vent Rate 14 05/18/17 14:58 Inspired O2 30 05/18/17 14:58 Tidal Volume 450 05/18/17 14:58 PEEP 5 05/18/17 14:58 Pressure (ins/psv/peep) NA 05/18/17 14:58 Critical Value E.REAGAN 05/18/17 14:58 Sodium 131 mEq/L (136-145) L 05/18/17 04:38 Potassium 3.4 mEq/L (3.5-5.1) L 05/18/17 04:38 Chloride 94 mEq/L (98-107) L 05/18/17 04:38 Carbon Dioxide 31.1 mEq/L (21.0-31.0) H 05/18/17 04:38 Anion Gap 9.3 (7.0-16.0) 05/18/17 04:38 BUN 28 mg/dL (7-25) H 05/18/17 04:38 Creatinine 1.1 mg/dL (0.7-1.3) 05/18/17 04:38 Est GFR ( Amer) > 60.0 ml/min (>90) 05/18/17 04:38 Est GFR (Non-Af Amer) > 60.0 ml/min 05/18/17 04:38 BUN/Creatinine Ratio 25.5 05/18/17 04:38 Glucose 106 mg/dL (70-105) H 05/18/17 04:38 POC Glucose 136 MG/DL (70 - 105) H 05/19/17 11:25 Whole Bld Lactic Acid 1.88 mmol/L (0.60-1.99) 05/17/17 00:00 Calcium 9.4 mg/dL (8.6-10.3) 05/18/17 04:38 Total Bilirubin 0.4 mg/dL (0.3-1.0) 05/17/17 00:00 AST 34 U/L (13-39) 05/17/17 00:00 ALT 43 U/L (7-52) 05/17/17 00:00 Alkaline Phosphatase 153 U/L (34-104) H 05/17/17 00:00 Total Protein 6.3 gm/dL (6.0-8.3) 05/17/17 00:00 Albumin 2.8 gm/dL (4.2-5.5) L 05/17/17 00:00 Globulin 3.5 gm/dL 05/17/17 00:00 Albumin/Globulin Ratio 0.8 (1.0-1.8) L 05/17/17 00:00 Vitamin B12 1451 pg/mL (232-1245) H 05/18/17 04:38 Folic Acid >20.0 ng/mL (>3.0) 05/18/17 04:38 Urine Source [place] 05/17/17 01:20 Urine Color YELLOW 05/17/17 01:20 Urine Clarity CLEAR (CLEAR) 05/17/17 01:20 Urine pH 7.0 (4.6 - 8.0) 05/17/17 01:20 Ur Specific [place] <= 1.005 (1.005-1.030) 05/17/17 01:20 Urine Protein TRACE mg/dL (NEGATIVE) 05/17/17 01:20 Urine Glucose (UA) NEGATIVE mg/dL (NEGATIVE) 05/17/17 01:20 Urine Ketones NEGATIVE mg/dL (NEGATIVE) 05/17/17 01:20 Urine Blood TRACE (NEGATIVE) 05/17/17 01:20 Urine Nitrate POSITIVE (NEGATIVE) H 05/17/17 01:20 Urine Bilirubin NEGATIVE (NEGATIVE) 05/17/17 01:20 Urine Urobilinogen 0.2 E.U./dL (0.2 - 1.0) 05/17/17 01:20 Ur Leukocyte Esterase MODERATE (NEGATIVE) H 05/17/17 01:20 Urine RBC 0-2 /hpf (0-5) H 05/17/17 01:20 Urine WBC 10-25 /hpf (0-5) H 05/17/17 01:20 Ur Epithelial Cells FEW /lpf (FEW) 05/17/17 01:20 Urine Bacteria MODERATE /hpf (NONE SEEN) H 05/17/17 01:20 Stool Occult Blood NEGATIVE (NEGATIVE) 05/17/17 18:00 Blood Type O POSITIVE 05/17/17 04:35 Antibody Screen NEGATIVE 05/17/17 04:35 Crossmatch See Detail 05/17/17 04:35 - Physical Exam Vitals and I&O: Vital Signs Temp 97.6 F 05/19/17 12:00 Pulse 77 05/19/17 14:00 Resp 19 05/19/17 14:00 BP 128/62 05/19/17 14:00 Pulse Ox 99 05/19/17 14:00 Intake & Output 05/18/17 05/19/17 05/19/17 18:59 06:59 18:59 Intake Total 1540 3262.5 720 Output Total 1400 900 Balance 140 2362.5 720 Weight (lbs) 62.596 kg 63.078 kg Intake: Intake, IV Amount 100 2342.5 720 Piperacillin Sodium/ 100 100 50 Tazobact 3.375 gm In Sodium Chloride 0.9% 50 ml @ 100 mls/hr IV Q8H PAO Rx#:[id number] Sodium Chloride 0.9% 1, 2242.5 670 000 ml @ 150 mls/hr IV . Q6H40M [facility] Rx#:[id number] Tube Feeding 1440 720 Other 200 Output: Urine 1400 900 Other: # Voids 1,200 # Bowel Movements 1 1 Stool Characteristics Soft Soft Brown Brown Green Green Active Medications: Current Medications Acetaminophen (Tylenol) 650 mg GT Q4H PRN PRN Reason: Pain or Fever >101 Stop: 07/16/17 08:10 Albuterol Sulfate (Albuterol 2.5mg/3ml Neb Ud) 2.5 mg HHN Q4HRT PRN PRN Reason: Shortness of Breath Stop: 07/16/17 08:10 Last Admin: 05/19/17 02:30 Dose: 2.5 mg Albuterol/Ipratropium (Duoneb Neb) 3 ml HHN Q2HRT PRN PRN Reason: Shortness of Breath Stop: 07/16/17 08:10 Last Admin: 05/19/17 12:07 Dose: 3 ml Amiodarone HCl (Cordarone) 200 mg GT DAILY [facility] Stop: 07/16/17 08:59 Last Admin: 05/19/17 08:50 Dose: 200 mg Ascorbic Acid (Vitamin C) 500 mg GT DAILY [facility] Stop: 07/16/17 08:59 Last Admin: 05/19/17 08:50 Dose: 500 mg Chlorhexidine Gluconate (Peridex) 15 ml MM 0800,2000 [facility] Stop: 07/16/17 07:59 Last Admin: 05/19/17 08:50 Dose: 15 ml Ciprofloxacin (Cipro 0.3% Oph Soln) 2 drop RIGHT EYE Q6H [facility] Stop: 07/16/17 13:59 Last Admin: 05/19/17 13:54 Dose: 2 drop Heparin Sodium (Porcine) (Heparin) 5,000 units SUBQ Q12HR [facility] Stop: 07/17/17 20:59 Last Admin: 05/19/17 08:52 Dose: 5,000 units Hydralazine HCl (Apresoline) 10 mg GT Q6H PRN PRN Reason: SBP ABOVE 160 Stop: 07/16/17 08:10 Last Admin: 05/19/17 04:10 Dose: 10 mg Sodium Chloride (Nacl 0.9%) 1,000 mls @ 150 mls/hr IV .Q6H40M [facility] Stop: 07/16/17 08:44 Last Admin: 05/19/17 10:28 Dose: 150 mls/hr Piperacillin Sod/Tazobactam (Sod 3.375 gm/ Sodium Chloride) 50 mls @ 100 mls/ hr IV Q8H [facility] Stop: 07/16/17 10:59 Last Infusion: 02/15/18 11:20 Dose: Infused Insulin Aspart (Novolog Insulin Sliding Scale) 0 units SUBQ Q6HR PAO PRN Reason: Protocol Stop: 07/16/17 11:59 Last Admin: 05/19/17 12:47 Dose: Not Given Ipratropium [place] (Atrovent Neb 0.5mg/2.5ml) 0.5 mg HHN Q4HRT PRN PRN Reason: Shortness of Breath Stop: 07/16/17 08:10 Last Admin: 05/19/17 02:30 Dose: 0.5 mg Levetiracetam (Keppra) 500 mg PO BID PAO Stop: 07/16/17 08:59 Last Admin: 05/19/17 08:52 Dose: 500 mg Magnesium Hydroxide (Milk Of Magnesia) 30 ml GT Q4H PRN PRN Reason: Constipation Stop: 07/16/17 08:10 Metoclopramide HCl (Reglan) 5 mg GT Q6H PRN PRN Reason: gerd Stop: 07/16/17 08:10 Metoprolol Tartrate (Lopressor) 12.5 mg GT DAILY [facility] Stop: 07/16/17 08:59 Last Admin: 05/19/17 08:51 Dose: 12.5 mg Miscellaneous (Zosyn Iv Per Pharmacy) 1 [facility] PRN PRN PRN Reason: PROTOCOL Stop: 07/16/17 03:42 Miscellaneous (Vte Chemical Prophylaxis Screen/ Admission) 1 [facility] PRN PRN PRN Reason: PROTOCOL Stop: 07/16/17 11:11 Pantoprazole Sodium (Protonix) 40 mg GT QDAC [facility]O Stop: 07/16/17 08:59 Last Admin: 05/19/17 06:30 Dose: 40 mg Prednisone (Deltasone) 5 mg GT DAILY [facility] Stop: 07/16/17 08:59 Last Admin: 05/19/17 08:51 Dose: 5 mg General: no acute distress, cachectic HEENT: atraumatic, normocephalic, PERRLA, EOMI Neck: supple, no thyromegaly Cardiovascular: S1S2, regular Lungs: clear to percussion, crackles Abdomen: soft, no tender Extremities: no cyanosis, no clubbing, no edema - Procedures Procedures: Procedures Procedure Code Date BLOOD TRANSFUSION SERVICE 11279 05/17/17 RESPIRATORY VENTILATION, 24-96 CONSECUTIVE HOURS [id number] 05/17/17 TRANSFUSE NONAUT RED BLOOD CELLS IN PERIPH VEIN, PERC 52037U0 05/17/17 Infectious Disease Assmt/Plan - Assessment Assessment: 1. Pneumonia. 2. Urinary tract infection. 3. Right eye conjunctivitis. 4. Vent-dependent respiratory failure. 5. Anoxic encephalopathy. 6. Diabetes mellitus type 2. 7. Hypertension. 8. Coronary artery disease. 9. History of cardiopulmonary arrest. 10. Congestive heart failure. 11. Dysphagia, G-tube placement. 12. Seizure disorder. - Plan Plan: Continue Zosyn. Check the right eye culture. continue Cipro eyedrops. Nutritional Asmnt/Malnutr-PDOC - Dietary Evaluation Malnutrition Findings (Please click <Entered> for more info): Nutritional Asmnt/Malnutrition Start: 05/17/17 07: 59 Text: Status: Complete Freq: Document 05/18/17 09:30 [email or web address] (Rec: 05/18/17 09:41 [email or web address]) Nutritional Asmnt/Malnutrition Patient General Information Nutritional Screening High Risk Diagnosis severe anemia, PNA, UTI Pertinent Medical Hx/Surgical Hx vent dependent, PEG, dysphagia , CHF, HTN, DM, CAD, COPD, PUD , GERD, Seizure Subjective Information Pt on vent. TF running @ goal rate. No residuals noted. Current Diet Order/ Nutrition Support Fibersource HN @ 60 ml/hr Patient / S.O Not Indicated Pertinent Medications vit c, cipro, insulin, milk of magnesia, reglan, protonix, prednisone Pertinent Labs (05/18) Na: 131, K: 3.4, BUN: 28, glucose: 96-170, alk phos: 153 Nutritional Hx/Data Height 1.63 m Height (Calculated Centimeters) 162.6 Current Weight (lbs) 63.503 kg Weight (Calculated Kilograms) 63.5 Weight (Calculated Grams) 53897.9 [place] Body Weight 130 lbs % [place] Body Weight 108 Body Mass Index (BMI) 24.0 Weight Status Approriate GI Symptoms GI Symptoms None Last BM 05/17 Difficult in: Swallowing Skin Integrity/Comment: pressure ulcer to sacrum, awaiting wound consult for staging Estimated Nutritional Goals BEE in Kcals: Using Current wt Calories/Kcals/Kg 25-30 Kcals Calculated 1172-0708 Protein: Using Current wt Protein g/k-1.2 Protein Calculated 64-77 g Fluid: ml 5219-2330 mL (1 mL/kcal) Nutritional Problem 2. Problem Problem altered nutrition related lab values Etiology pt on non diabetic TF Signs/Symptoms: glcose: 96-170 1. Problem Problem increased nutrient needs Etiology wounds Signs/Symptoms: pressure ulcer to sacrum Intervention/Recommendation Comments Recommend change TF to Diabetisource AC @ 65 ml/hr x 20 hours to provide 1300 mL total volume, 1560 kcals, 78 g pro, 1061 mL free h2o. Flush with 100 mL q 4 hours. Expected Outcomes/Goals Expected Outcomes/Goals goal: meet >75% of needs, improved skin integrity monitor wts, labs, skin, PO intake
--- NOTE | 2017-05-19 16:22 | General Progress Note ---
Subjective - Review of Systems Events since last encounter: on vent in no distress Objective - Results Result Diagrams: 05/18/17 04:38 05/18/17 04:38 Recent Labs: Laboratory Last Values WBC 10.2 Th/cmm (4.8-10.8) 05/18/17 04:38 Corrected WBC (auto) 9.3 Th/cmm 05/17/17 00:00 RBC 3.12 Mil/cmm (3.80-5.80) L 05/18/17 04:38 Hgb 9.3 gm/dL (12-16) L 05/18/17 04:38 Hct 26.4 % (40.0-54.0) L 05/18/17 04:38 MCV 84.5 fl (80-99) 05/18/17 04:38 MCH 29.7 pg (27.0-31.0) 05/18/17 04:38 MCHC Differential 35.1 pg (28.0-36.0) 05/18/17 04:38 RDW 15.2 % (11.5-20.0) 05/18/17 04:38 Plt Count 199 Th/cmm (150-400) 05/18/17 04:38 MPV 5.7 fl 05/18/17 04:38 Neutrophils % 74.9 % (40.0-80.0) 05/18/17 04:38 Band Neutrophils % 6 % (0-10) 05/17/17 00:00 Lymphocytes % 15.6 % (20.0-50.0) L 05/18/17 04:38 Monocytes % 5.4 % (2.0-10.0) 05/18/17 04:38 Eosinophils % 3.5 % (0.0-5.0) 05/18/17 04:38 Basophils % 0.6 % (0.0-2.0) 05/18/17 04:38 Neutrophils (Manual) 45 % (40-80) 05/17/17 00:00 Lymphocytes 48 % (20-50) 05/17/17 00:00 Monocytes 1 % (2-10) L 05/17/17 00:00 Nucleated RBCs 6.0 % (0-0) H 05/17/17 00:00 Hypochromia 1+ 05/17/17 00:00 Platelet Estimate ADEQUATE (NORMAL) 05/17/17 00:00 Polychromasia 1+ 05/17/17 00:00 Total Retics Counted 1.2 % (0.5-1.5) 05/18/17 04:38 Absolute Retic 37.4 Th/cmm 05/18/17 04:38 Corrected Retic Count 0.7 % (0.5-1.5) 05/18/17 04:38 Specimen Source Arterial 05/18/17 14:58 Sample Site Left Radial 05/18/17 14:58 pH 7.55 (7.35-7.45) H 05/18/17 14:58 pCO2 35.0 mmHg (35.0-45.0) 05/18/17 14:58 pO2 107.0 mmHg (80.0-100.0) H 05/18/17 14:58 HCO3 31.1 mEq/L (20.0-26.0) H 05/18/17 14:58 Base Excess 7.9 mEq/L (-3.0-3.0) H 05/18/17 14:58 O2 Saturation 99.0 % (92.0-100.0) 05/18/17 14:58 Nader Test YES 05/18/17 14:58 Vent Rate 14 05/18/17 14:58 Inspired O2 30 05/18/17 14:58 Tidal Volume 450 05/18/17 14:58 PEEP 5 05/18/17 14:58 Pressure (ins/psv/peep) NA 05/18/17 14:58 Critical Value E.REAGAN 05/18/17 14:58 Sodium 131 mEq/L (136-145) L 05/18/17 04:38 Potassium 3.4 mEq/L (3.5-5.1) L 05/18/17 04:38 Chloride 94 mEq/L (98-107) L 05/18/17 04:38 Carbon Dioxide 31.1 mEq/L (21.0-31.0) H 05/18/17 04:38 Anion Gap 9.3 (7.0-16.0) 05/18/17 04:38 BUN 28 mg/dL (7-25) H 05/18/17 04:38 Creatinine 1.1 mg/dL (0.7-1.3) 05/18/17 04:38 Est GFR ( Amer) > 60.0 ml/min (>90) 05/18/17 04:38 Est GFR (Non-Af Amer) > 60.0 ml/min 05/18/17 04:38 BUN/Creatinine Ratio 25.5 05/18/17 04:38 Glucose 106 mg/dL (70-105) H 05/18/17 04:38 POC Glucose 136 MG/DL (70 - 105) H 05/19/17 11:25 Whole Bld Lactic Acid 1.88 mmol/L (0.60-1.99) 05/17/17 00:00 Calcium 9.4 mg/dL (8.6-10.3) 05/18/17 04:38 Total Bilirubin 0.4 mg/dL (0.3-1.0) 05/17/17 00:00 AST 34 U/L (13-39) 05/17/17 00:00 ALT 43 U/L (7-52) 05/17/17 00:00 Alkaline Phosphatase 153 U/L (34-104) H 05/17/17 00:00 Total Protein 6.3 gm/dL (6.0-8.3) 05/17/17 00:00 Albumin 2.8 gm/dL (4.2-5.5) L 05/17/17 00:00 Globulin 3.5 gm/dL 05/17/17 00:00 Albumin/Globulin Ratio 0.8 (1.0-1.8) L 05/17/17 00:00 Vitamin B12 1451 pg/mL (232-1245) H 05/18/17 04:38 Folic Acid >20.0 ng/mL (>3.0) 05/18/17 04:38 Urine Source [place] 05/17/17 01:20 Urine Color YELLOW 05/17/17 01:20 Urine Clarity CLEAR (CLEAR) 05/17/17 01:20 Urine pH 7.0 (4.6 - 8.0) 05/17/17 01:20 Ur Specific [place] <= 1.005 (1.005-1.030) 05/17/17 01:20 Urine Protein TRACE mg/dL (NEGATIVE) 05/17/17 01:20 Urine Glucose (UA) NEGATIVE mg/dL (NEGATIVE) 05/17/17 01:20 Urine Ketones NEGATIVE mg/dL (NEGATIVE) 05/17/17 01:20 Urine Blood TRACE (NEGATIVE) 05/17/17 01:20 Urine Nitrate POSITIVE (NEGATIVE) H 05/17/17 01:20 Urine Bilirubin NEGATIVE (NEGATIVE) 05/17/17 01:20 Urine Urobilinogen 0.2 E.U./dL (0.2 - 1.0) 05/17/17 01:20 Ur Leukocyte Esterase MODERATE (NEGATIVE) H 05/17/17 01:20 Urine RBC 0-2 /hpf (0-5) H 05/17/17 01:20 Urine WBC 10-25 /hpf (0-5) H 05/17/17 01:20 Ur Epithelial Cells FEW /lpf (FEW) 05/17/17 01:20 Urine Bacteria MODERATE /hpf (NONE SEEN) H 05/17/17 01:20 Stool Occult Blood NEGATIVE (NEGATIVE) 05/17/17 18:00 Blood Type O POSITIVE 05/17/17 04:35 Antibody Screen NEGATIVE 05/17/17 04:35 Crossmatch See Detail 05/17/17 04:35 - Physical Exam Vitals and I&O: Vital Signs Temp 98.5 F 05/19/17 16:00 Pulse 78 05/19/17 16:00 Resp 18 05/19/17 16:00 BP 120/58 05/19/17 16:00 Pulse Ox 99 05/19/17 16:00 Intake & Output 05/18/17 05/19/17 05/19/17 18:59 06:59 18:59 Intake Total 1540 3262.5 720 Output Total 1400 900 Balance 140 2362.5 720 Weight (lbs) 62.596 kg 63.078 kg Intake: Intake, IV Amount 100 2342.5 720 Piperacillin Sodium/ 100 100 50 Tazobact 3.375 gm In Sodium Chloride 0.9% 50 ml @ 100 mls/hr IV Q8H [facility] Rx#:[id number] Sodium Chloride 0.9% 1, 2242.5 670 000 ml @ 150 mls/hr IV . Q6H40M [facility] Rx#:[id number] Tube Feeding 1440 720 Other 200 Output: Urine 1400 900 Other: # Voids 1,200 # Bowel Movements 1 1 Stool Characteristics Soft Soft Brown Brown Green Green Active Medications: Current Medications Acetaminophen (Tylenol) 650 mg GT Q4H PRN PRN Reason: Pain or Fever >101 Stop: 07/16/17 08:10 Albuterol Sulfate (Albuterol 2.5mg/3ml Neb Ud) 2.5 mg HHN Q4HRT PRN PRN Reason: Shortness of Breath Stop: 07/16/17 08:10 Last Admin: 05/19/17 02:30 Dose: 2.5 mg Albuterol/Ipratropium (Duoneb Neb) 3 ml HHN Q2HRT PRN PRN Reason: Shortness of Breath Stop: 07/16/17 08:10 Last Admin: 05/19/17 15:02 Dose: 3 ml Amiodarone HCl (Cordarone) 200 mg GT DAILY [facility] Stop: 07/16/17 08:59 Last Admin: 05/19/17 08:50 Dose: 200 mg Ascorbic Acid (Vitamin C) 500 mg GT DAILY [facility] Stop: 07/16/17 08:59 Last Admin: 05/19/17 08:50 Dose: 500 mg Chlorhexidine Gluconate (Peridex) 15 ml MM 0800,2000 [facility] Stop: 07/16/17 07:59 Last Admin: 05/19/17 08:50 Dose: 15 ml Ciprofloxacin (Cipro 0.3% Ophth Soln) 2 drop RIGHT EYE Q6H [facility] Stop: 07/16/17 13:59 Last Admin: 05/19/17 13:54 Dose: 2 drop Heparin Sodium (Porcine) (Heparin) 5,000 units SUBQ Q12HR [facility] Stop: 07/17/17 20:59 Last Admin: 05/19/17 08:52 Dose: 5,000 units Hydralazine HCl (Apresoline) 10 mg GT Q6H PRN PRN Reason: SBP ABOVE 160 Stop: 07/16/17 08:10 Last Admin: 05/19/17 04:10 Dose: 10 mg Sodium Chloride (Nacl 0.9%) 1,000 mls @ 150 mls/hr IV .Q6H40M [facility] Stop: 07/16/17 08:44 Last Admin: 05/19/17 10:28 Dose: 150 mls/hr Piperacillin Sod/Tazobactam (Sod 3.375 gm/ Sodium Chloride) 50 mls @ 100 mls/ hr IV Q8H [facility] Stop: 07/16/17 10:59 Last Infusion: 05/19/17 11:20 Dose: Infused Insulin Aspart (Novolog Insulin Sliding Scale) 0 units SUBQ Q6HR PAO PRN Reason: Protocol Stop: 07/16/17 11:59 Last Admin: 05/19/17 12:47 Dose: Not Given Ipratropium [place] (Atrovent Neb 0.5mg/2.5ml) 0.5 mg HHN Q4HRT PRN PRN Reason: Shortness of Breath Stop: 07/16/17 08:10 Last Admin: 05/19/17 02:30 Dose: 0.5 mg Levetiracetam (Keppra) 500 mg PO BID [facility] Stop: 07/16/17 08:59 Last Admin: 05/19/17 08:52 Dose: 500 mg Magnesium Hydroxide (Milk Of Magnesia) 30 ml GT Q4H PRN PRN Reason: Constipation Stop: 07/16/17 08:10 Metoclopramide HCl (Reglan) 5 mg GT Q6H PRN PRN Reason: gerd Stop: 07/16/17 08:10 Metoprolol Tartrate (Lopressor) 12.5 mg GT DAILY [facility] Stop: 07/16/17 08:59 Last Admin: 05/19/17 08:51 Dose: 12.5 mg Miscellaneous (Zosyn Iv Per Pharmacy) 1 [facility] PRN PRN PRN Reason: PROTOCOL Stop: 07/16/17 03:42 Miscellaneous (Vte Chemical Prophylaxis Screen/ Admission) 1 [facility] PRN PRN PRN Reason: PROTOCOL Stop: 07/16/17 11:11 Pantoprazole Sodium (Protonix) 40 mg GT QDAC [facility] Stop: 07/16/17 08:59 Last Admin: 05/19/17 06:30 Dose: 40 mg Prednisone (Deltasone) 5 mg GT DAILY [facility] Stop: 07/16/17 08:59 Last Admin: 05/19/17 08:51 Dose: 5 mg - Procedures Procedures: Procedures Procedure Code Date BLOOD TRANSFUSION SERVICE 45097 05/17/17 RESPIRATORY VENTILATION, 24-96 CONSECUTIVE HOURS [id number] 05/17/17 TRANSFUSE NONAUT RED BLOOD CELLS IN PERIPH VEIN, PERC 47474G4 05/17/17 Nutritional Asmnt/Malnutr-PDOC - Dietary Evaluation Malnutrition Findings (Please click <Entered> for more info): Nutritional Asmnt/Malnutrition Start: 05/17/17 07: 59 Text: Status: Complete Freq: Document 05/18/17 09:30 [email or web address] (Rec: 05/18/17 09:41 [email or web address]) Nutritional Asmnt/Malnutrition Patient General Information Nutritional Screening High Risk Diagnosis severe anemia, PNA, UTI Pertinent Medical Hx/Surgical Hx vent dependent, PEG, dysphagia , CHF, HTN, DM, CAD, COPD, PUD , GERD, Seizure Subjective Information Pt on vent. TF running @ goal rate. No residuals noted. Current Diet Order/ Nutrition Support Fibersource HN @ 60 ml/hr Patient / S.O Not Indicated Pertinent Medications vit c, cipro, insulin, milk of magnesia, reglan, protonix, prednisone Pertinent Labs (05/18) Na: 131, K: 3.4, BUN: 28, glucose: 96-170, alk phos: 153 Nutritional Hx/Data Height 1.63 m Height (Calculated Centimeters) 162.6 Current Weight (lbs) 63.503 kg Weight (Calculated Kilograms) 63.5 Weight (Calculated Grams) 21100.9 [place] Body Weight 130 lbs % [place] Body Weight 108 Body Mass Index (BMI) 24.0 Weight Status Approriate GI Symptoms GI Symptoms None Last BM 05/17 Difficult in: Swallowing Skin Integrity/Comment: pressure ulcer to sacrum, awaiting wound consult for staging Estimated Nutritional Goals BEE in Kcals: Using Current wt Calories/Kcals/Kg 25-30 Kcals Calculated 2489-0804 Protein: Using Current wt Protein g/k-1.2 Protein Calculated 64-77 g Fluid: ml 7446-7357 mL (1 mL/kcal) Nutritional Problem 2. Problem Problem altered nutrition related lab values Etiology pt on non diabetic TF Signs/Symptoms: glcose: 96-170 1. Problem Problem increased nutrient needs Etiology wounds Signs/Symptoms: pressure ulcer to sacrum Intervention/Recommendation Comments Recommend change TF to Diabetisource AC @ 65 ml/hr x 20 hours to provide 1300 mL total volume, 1560 kcals, 78 g pro, 1061 mL free h2o. Flush with 100 mL q 4 hours. Expected Outcomes/Goals Expected Outcomes/Goals goal: meet >75% of needs, improved skin integrity monitor wts, labs, skin, PO intake
[2017-05-20] MEDS: INSULIN ASPART SLIDING SCALE 100 UNITS/ML UNIT SUBQ SCH ×2 (00:33→05:49)
[2017-05-20] MEDS: Sodium Chloride 0.9% 1,000 ML IV SCH (01:49)
[2017-05-20 04:32] LABS: RED CELL DISTRIBUTION WIDTH 15.4 % (11.5-20.0)
[2017-05-20 04:38] LABS: MEAN CELL VOLUME 86.1 fl (80-99); MEAN CORPUSCULAR HEMOGLOBIN 29.1 pg (27.0-31.0); MEAN CORPUSCULAR HGB CONC 33.8 pg (28.0-36.0); MEAN PLATELET VOLUME 5.4 fl; RED BLOOD COUNT 2.53 Mil/cmm (3.80-5.80)
[2017-05-20 04:42] LABS: ALB/GLOB RATIO 0.6 (1.0-1.8); ALKALINE PHOSPHATASE 98 U/L (34-104); ANION GAP 12.9 (7.0-16.0); BILIRUBIN,TOTAL 0.4 mg/dL (0.3-1.0); BUN - UREA NITROGEN 20 mg/dL (7-25); CALCIUM SERUM 7.6 mg/dL (8.6-10.3); CARBON DIOXIDE 24.8 mEq/L (21.0-31.0); CHLORIDE 105 mEq/L (98-107); GFR AFRICAN-AMERICAN > 60.0 ml/min (>90); GFR NON AFRICAN-AMERICAN > 60.0 ml/min; GLUCOSE 103 mg/dL (70-105); SGOT 40 U/L (13-39); SGPT/ALT 39 U/L (7-52); SODIUM SERUM 140 mEq/L (136-145); TOTAL PROTEIN,SERUM 5.3 gm/dL (6.0-8.3)
[2017-05-20 04:43] LABS: HEMOGLOBIN 7.4 gm/dL (12-16); WHITE BLOOD COUNT 7.3 Th/cmm (4.8-10.8)
[2017-05-20 04:44] LABS: HEMATOCRIT 21.8 % (41.0-60); PLATELET COUNT 147 Th/cmm (150-400)
[2017-05-20 04:54] LABS: POTASSIUM SERUM 2.7 mEq/L (3.5-5.1)
[2017-05-20 05:09] LABS: BAND NEUTROPHILE 9 % (0-10); EOSINOPHIL 6 % (0-5); LYMPHOCYTE 15 % (20-50); METAMYELOCYTE 6 % (0-0); MYELOCYTE 4 %; NEUTROPHILS 60 % (40-80); PLATELET ESTIMATE ADEQUATE (NORMAL); TOTAL CELLS COUNTED 100
[2017-05-20 05:12] LABS: FERRITIN 2706 ng/mL (30-400); HAPTOGLOBIN 231 mg/dL (34-200); IRON LC 62 ug/dL (38-169); TIBC (LC) 116 ug/dL (250-450); UIBC 54 ug/dL (111-343)
[2017-05-20] MEDS ORDERED: KCL 20mEq/100mL Premix 20 MEQ/100 ML PIGGYBACK IV SCH (06:29)
[2017-05-20] MEDS ORDERED: Sodium Chloride 0.9% 1,000 ML IV ONE (06:30)
[2017-05-20] MEDS: Pantoprazole 40 mg/Packet GT SCH (06:58)
[2017-05-20] MEDS: Ipratropium Neb 0.5 mg/2.5 mL UD HHN PRN (07:16)
[2017-05-20] MEDS: Albuterol Nebulizer 2.5mg/3mL HHN PRN (07:16)
[2017-05-20 08:23] LABS: HEMOGLOBIN 8.4 gm/dL (12-16)
[2017-05-20] MEDS: Multivitamin w/ Minerals Tab GT SCH (08:54)
[2017-05-20] MEDS: Chlorhexidine Gluconate 0.12% 15mL Mouthwash MM SCH (08:56)
[2017-05-20] MEDS ORDERED: Potassium Chloride 20 mEq ER Tab PO ONE (12:03)
--- NOTE | 2017-05-20 12:05 | History and Physical ---
History of Present Illness - HPI Chief Complaint: LOW HGB/HCT AND UTI HPI: THIS IS A 66 YEAR OLD MALE WHO IS A RESIDENT OF [facility] ADMITTED TO THE ICU UNIT DUE TO LOW HGB/HCT AT THE SNF. Vital Signs: Last Vital Signs Temp 97.4 F 05/20/17 08:00 Pulse 94 05/20/17 10:00 Resp 17 05/20/17 10:00 BP 139/65 05/20/17 10:00 Pulse Ox 100 05/20/17 10:00 Past Medical History Other History: CARDIOPULMONARY ARREST VDRF DYSPHAGIA ANOXIC ENCEPHALOPATHY CHF COPD ASTHMA GERD SEIZURE VDRF - Past Surgical History Past Surgical History: Other (PEG/TRACH) Family Medical History - Family Member Mother History Unknown: Yes Social History Smoke: No Alcohol: None Drugs: None Lives: Assisted - Medications Home Medications: Home Medication Medication Instructions Recorded Type Acetaminophen [Tylenol] 650 mg GT Q4HR PRN 05/17/17 History Albuterol Nebulizer 2.5mg/3mL 2.5 mg IH Q4HR PRN 05/17/17 History [Albuterol Neb UD*] Albuterol/Ipratropium Neb [Duoneb 3 ml HHN Q2HR PRN 05/17/17 History Neb] Amiodarone [Cordarone] 200 mg GT DAILY 05/17/17 History Chlorhexidine Gluconate 0.12% 15 ml MM BID 05/17/17 History [Peridex] Colistimethate [Colistin] 75 mg INH BID 05/17/17 History Hydralazine HCl 10 mg GT Q6H PRN 05/17/17 History Insulin Human Regular [NovoLIN R] See Protocol SUBQ BID 05/17/17 History Ipratropium Neb 0.5 mg/2.5 mL 0.5 mg HHN Q4HR PRN 05/17/17 History [Atrovent Neb 0.5MG/2.5ML] Levetiracetam [Keppra] 500 mg GT BID 05/17/17 History Magnesium Hydroxide [Milk of 30 ml GT Q4H PRN 05/17/17 History Magnesia] Metoclopramide [Reglan] 5 mg GT Q6H PRN 05/17/17 History Metoprolol Tartrate [Lopressor] 12.5 mg GT DAILY 05/17/17 History Multivitamin w/ Minerals 5 ml GT DAILY 05/17/17 History [Theragran M] Pantoprazole [Protonix] 40 mg GT DAILY 05/17/17 History Prednisone 5 mg GT DAILY 05/17/17 History Vit C/Ascorbate Ca/Ascorb Sod 500 mg GT DAILY 05/17/17 History [Vitamin C 500 mg/15 ml Liquid] - Allergies Allergies/Adverse Reactions: Allergies Allergy/AdvReac Type Severity Reaction Status Date / Time No Known Allergies Allergy Verified 05/17/17 00:10 Review of Systems - Review of Systems Constitutional: Report: No Significant Eyes: Report: No Significant ENT: Report: No Significant Respiratory: Report: No Significant Cardiovascular: Report: No Significant Gastrointestinal: Report: No Significant Genitourinary: Report: No Significant Musculoskeletal: Report: No Significant Neurological: Report: No Significant Physical Exam - Physical Exam HEENT: Report: Ears Nose Throat within normal limits Neck: Report: Within normal limits Cardiovascular Systems: Report: +s1/s2 noted, Regular, Rate and Rhythm Respiratory: Report: Breath Sounds are within normal limits, Rhonchi Abdomen: Report: Non-tender to palpation Back: Report: Inspection of back is within normal limits. Extremities: Report: Non-tender to palpation. Skin: Report: Color of skin is within normal limits Neuro/Psych: Report: Weakness or sensory loss noted. - Lab Results All Lab Results last 24 hours: Laboratory Results - last 24 hr 05/17/17 05/18/17 05/19/17 04:35 04:38 18:11 WBC RBC Hgb Hct MCV MCH MCHC Differential RDW Plt Count MPV Band Neutrophils % Neutrophils (Manual) Lymphocytes Eosinophils Metamyelocytes Myelocytes Platelet Estimate Haptoglobin 231 H Sodium Potassium Chloride Carbon Dioxide Anion Gap BUN Creatinine Est GFR ( Amer) Est GFR (Non-Af Amer) BUN/Creatinine Ratio Glucose POC Glucose 119 H Calcium Iron 62 TIBC 116 L Iron Saturation 53 Unsaturated IBC 54 L Ferritin 2706 H Total Bilirubin AST ALT Alkaline Phosphatase Total Protein Albumin Globulin Albumin/Globulin Ratio Blood Type O POSITIVE Antibody Screen NEGATIVE Crossmatch See Detail 05/19/17 05/20/17 05/20/17 23:51 04:15 04:15 WBC 7.3 D RBC 2.53 L Hgb 7.4 L* Hct 21.8 L D MCV 86.1 MCH 29.1 MCHC Differential 33.8 RDW 15.4 Plt Count 147 L D MPV 5.4 Band Neutrophils % 9 Neutrophils (Manual) 60 Lymphocytes 15 L Eosinophils 6 H Metamyelocytes 6 H Myelocytes 4 Platelet Estimate ADEQUATE Haptoglobin Sodium 140 Potassium 2.7 L* Chloride 105 Carbon Dioxide 24.8 Anion Gap 12.9 BUN 20 Creatinine 1.0 Est GFR ( Amer) > 60.0 Est GFR (Non-Af Amer) > 60.0 BUN/Creatinine Ratio 20.0 Glucose 103 POC Glucose 99 Calcium 7.6 L Iron TIBC Iron Saturation Unsaturated IBC Ferritin Total Bilirubin 0.4 AST 40 H ALT 39 Alkaline Phosphatase 98 Total Protein 5.3 L Albumin 2.0 L Globulin 3.3 Albumin/Globulin Ratio 0.6 L Blood Type Antibody Screen Crossmatch 05/20/17 05/20/17 07:00 07:36 WBC RBC Hgb 8.4 L Hct 25.0 L D MCV MCH MCHC Differential RDW Plt Count MPV Band Neutrophils % Neutrophils (Manual) Lymphocytes Eosinophils Metamyelocytes Myelocytes Platelet Estimate Haptoglobin Sodium Potassium Chloride Carbon Dioxide Anion Gap BUN Creatinine Est GFR ( Amer) Est GFR (Non-Af Amer) BUN/Creatinine Ratio Glucose POC Glucose Calcium Iron TIBC Iron Saturation Unsaturated IBC Ferritin Total Bilirubin AST ALT Alkaline Phosphatase Total Protein Albumin Globulin Albumin/Globulin Ratio Blood Type O POSITIVE Antibody Screen NEGATIVE Crossmatch See Detail Microbiology 05/17/17 13:00 - Final Eye - Right Aerobic Culture - Final Pseudomonas Aeruginosa - Assessment Assessment: PNA UTI RIGHT EYE CONJUNCTIVITIS VDRF ANOXIC ENCEPHALOPATHY DM2 HTN CAD HX CARDIOPULMONARY ARREST CHF DYSPHAGIA SEIZURE - Plan Plan: SEIZURE PRECAUTIONS IVABX PER ID VENT SUPPORT PULMO/ID FOLLOW UP MONITOR ELECTROLYTES CONTINUE CURRENT ORDERS
[2017-05-20] MEDS ORDERED: Potassium Chloride Elixir 20 mEq /15 mL UDC ONE (12:28)
[2017-05-20] MEDS: Albuterol/Ipratropium Neb 3 ML AERS HHN PRN ×2 (12:29→15:16)
[2017-05-20] MEDS ORDERED: Potassium Chloride Elixir 20 mEq /15 mL UDC GT ONE (12:47)
--- NOTE | 2017-05-20 14:08 | Infectious Disease Prog Note ---
Infectious Disease Subjective - Review of Systems Service Date: 05/20/17 Subjective: No fever. on the ventilator. Infectious Disease Objective - Results Result Diagrams: 05/20/17 07:36 05/20/17 04:15 Recent Labs: Laboratory Last Values WBC 7.3 Th/cmm (4.8-10.8) D 05/20/17 04:15 Corrected WBC (auto) 9.3 Th/cmm 05/17/17 00:00 RBC 2.53 Mil/cmm (3.80-5.80) L 05/20/17 04:15 Hgb 8.4 gm/dL (12-16) L 05/20/17 07:36 Hct 25.0 % (41.0-60) L D 05/20/17 07:36 MCV 86.1 fl (80-99) 05/20/17 04:15 MCH 29.1 pg (27.0-31.0) 05/20/17 04:15 MCHC Differential 33.8 pg (28.0-36.0) 05/20/17 04:15 RDW 15.4 % (11.5-20.0) 05/20/17 04:15 Plt Count 147 Th/cmm (150-400) L D 05/20/17 04:15 MPV 5.4 fl 05/20/17 04:15 Neutrophils % 74.9 % (40.0-80.0) 05/18/17 04:38 Band Neutrophils % 9 % (0-10) 05/20/17 04:15 Lymphocytes % 15.6 % (20.0-50.0) L 05/18/17 04:38 Monocytes % 5.4 % (2.0-10.0) 05/18/17 04:38 Eosinophils % 3.5 % (0.0-5.0) 05/18/17 04:38 Basophils % 0.6 % (0.0-2.0) 05/18/17 04:38 Neutrophils (Manual) 60 % (40-80) 05/20/17 04:15 Lymphocytes 15 % (20-50) L 05/20/17 04:15 Monocytes 1 % (2-10) L 05/17/17 00:00 Eosinophils 6 % (0-5) H 05/20/17 04:15 Metamyelocytes 6 % (0-0) H 05/20/17 04:15 Myelocytes 4 % 05/20/17 04:15 Nucleated RBCs 6.0 % (0-0) H 05/17/17 00:00 Hypochromia 1+ 05/17/17 00:00 Platelet Estimate ADEQUATE (NORMAL) 05/20/17 04:15 Polychromasia 1+ 05/17/17 00:00 Total Retics Counted 1.2 % (0.5-1.5) 05/18/17 04:38 Absolute Retic 37.4 Th/cmm 05/18/17 04:38 Corrected Retic Count 0.7 % (0.5-1.5) 05/18/17 04:38 Haptoglobin 231 mg/dL (34-200) H 05/18/17 04:38 Specimen Source Arterial 05/18/17 14:58 Sample Site Left Radial 05/18/17 14:58 pH 7.55 (7.35-7.45) H 05/18/17 14:58 pCO2 35.0 mmHg (35.0-45.0) 05/18/17 14:58 pO2 107.0 mmHg (80.0-100.0) H 05/18/17 14:58 HCO3 31.1 mEq/L (20.0-26.0) H 05/18/17 14:58 Base Excess 7.9 mEq/L (-3.0-3.0) H 05/18/17 14:58 O2 Saturation 99.0 % (92.0-100.0) 05/18/17 14:58 Nader Test YES 05/18/17 14:58 Vent Rate 14 05/18/17 14:58 Inspired O2 30 05/18/17 14:58 Tidal Volume 450 05/18/17 14:58 PEEP 5 05/18/17 14:58 Pressure (ins/psv/peep) NA 05/18/17 14:58 Critical Value E.REAGAN 05/18/17 14:58 Sodium 140 mEq/L (136-145) 05/20/17 04:15 Potassium 2.7 mEq/L (3.5-5.1) L* 05/20/17 04:15 Chloride 105 mEq/L (98-107) 05/20/17 04:15 Carbon Dioxide 24.8 mEq/L (21.0-31.0) 05/20/17 04:15 Anion Gap 12.9 (7.0-16.0) 05/20/17 04:15 BUN 20 mg/dL (7-25) 05/20/17 04:15 Creatinine 1.0 mg/dL (0.7-1.3) 05/20/17 04:15 Est GFR ( Amer) > 60.0 ml/min (>90) 05/20/17 04:15 Est GFR (Non-Af Amer) > 60.0 ml/min 05/20/17 04:15 BUN/Creatinine Ratio 20.0 05/20/17 04:15 Glucose 103 mg/dL (70-105) 05/20/17 04:15 POC Glucose 99 MG/DL (70 - 105) 05/19/17 23:51 Whole Bld Lactic Acid 1.88 mmol/L (0.60-1.99) 05/17/17 00:00 Calcium 7.6 mg/dL (8.6-10.3) L 05/20/17 04:15 Iron 62 ug/dL (38-169) 05/18/17 04:38 TIBC 116 ug/dL (250-450) L 05/18/17 04:38 Iron Saturation 53 % (15-55) 05/18/17 04:38 Unsaturated IBC 54 ug/dL (111-343) L 05/18/17 04:38 Ferritin 2706 ng/mL (30-400) H 05/18/17 04:38 Total Bilirubin 0.4 mg/dL (0.3-1.0) 05/20/17 04:15 AST 40 U/L (13-39) H 05/20/17 04:15 ALT 39 U/L (7-52) 05/20/17 04:15 Alkaline Phosphatase 98 U/L (34-104) 05/20/17 04:15 Total Protein 5.3 gm/dL (6.0-8.3) L 05/20/17 04:15 Albumin 2.0 gm/dL (4.2-5.5) L 05/20/17 04:15 Globulin 3.3 gm/dL 05/20/17 04:15 Albumin/Globulin Ratio 0.6 (1.0-1.8) L 05/20/17 04:15 Vitamin B12 1451 pg/mL (232-1245) H 05/18/17 04:38 Folic Acid >20.0 ng/mL (>3.0) 05/18/17 04:38 Urine Source [place] 05/17/17 01:20 Urine Color YELLOW 05/17/17 01:20 Urine Clarity CLEAR (CLEAR) 05/17/17 01:20 Urine pH 7.0 (4.6 - 8.0) 05/17/17 01:20 Ur Specific [place] <= 1.005 (1.005-1.030) 05/17/17 01:20 Urine Protein TRACE mg/dL (NEGATIVE) 05/17/17 01:20 Urine Glucose (UA) NEGATIVE mg/dL (NEGATIVE) 05/17/17 01:20 Urine Ketones NEGATIVE mg/dL (NEGATIVE) 05/17/17 01:20 Urine Blood TRACE (NEGATIVE) 05/17/17 01:20 Urine Nitrate POSITIVE (NEGATIVE) H 05/17/17 01:20 Urine Bilirubin NEGATIVE (NEGATIVE) 05/17/17 01:20 Urine Urobilinogen 0.2 E.U./dL (0.2 - 1.0) 05/17/17 01:20 Ur Leukocyte Esterase MODERATE (NEGATIVE) H 05/17/17 01:20 Urine RBC 0-2 /hpf (0-5) H 05/17/17 01:20 Urine WBC 10-25 /hpf (0-5) H 05/17/17 01:20 Ur Epithelial Cells FEW /lpf (FEW) 05/17/17 01:20 Urine Bacteria MODERATE /hpf (NONE SEEN) H 05/17/17 01:20 Stool Occult Blood NEGATIVE (NEGATIVE) 05/17/17 18:00 Blood Type O POSITIVE 05/20/17 07:00 Antibody Screen NEGATIVE 05/20/17 07:00 Crossmatch See Detail 05/20/17 07:00 - Physical Exam Vitals and I&O: Vital Signs Temp 97.6 F 05/20/17 12:00 Pulse 72 05/20/17 13:00 Resp 14 05/20/17 13:00 BP 136/56 05/20/17 13:00 Pulse Ox 100 05/20/17 13:00 Intake & Output 05/19/17 05/20/17 05/20/17 18:59 06:59 18:59 Intake Total 2490 1670 148.333 Output Total 95 1100 Balance 2395 570 148.333 Weight (lbs) 63.503 kg 63.503 kg Intake: Intake, IV Amount 1770 1050 148.333 Piperacillin Sodium/ 100 50 50 Tazobact 3.375 gm In Sodium Chloride 0.9% 50 ml @ 100 mls/hr IV Q8H [facility] Rx#:[id number] Potassium Chloride 20 meq 98.333 In Sodium Chloride 0.9% 100 ml @ 50 mls/hr IV Q2H [facility] Rx#:[id number] Sodium Chloride 0.9% 1, 1670 1000 000 ml @ 150 mls/hr IV . Q6H40M [facility] Rx#:[id number] Tube Feeding 720 480 Other 140 Output: Urine 95 1100 Other: # Bowel Movements 1 2 Active Medications: Current Medications Acetaminophen (Tylenol) 650 mg GT Q4H PRN PRN Reason: Pain or Fever >101 Stop: 07/16/17 08:10 Albuterol Sulfate (Albuterol 2.5mg/3ml Neb Ud) 2.5 mg HHN Q4HRT PRN PRN Reason: Shortness of Breath Stop: 07/16/17 08:10 Last Admin: 05/20/17 07:16 Dose: 2.5 mg Albuterol/Ipratropium (Duoneb Neb) 3 ml HHN Q2HRT PRN PRN Reason: Shortness of Breath Stop: 07/16/17 08:10 Last Admin: 05/20/17 12:29 Dose: 3 ml Amiodarone HCl (Cordarone) 200 mg GT DAILY [facility] Stop: 07/16/17 08:59 Last Admin: 05/20/17 08:54 Dose: 200 mg Ascorbic Acid (Vitamin C) 500 mg GT DAILY [facility] Stop: 07/16/17 08:59 Last Admin: 05/20/17 08:53 Dose: 500 mg Chlorhexidine Gluconate (Peridex) 15 ml MM 0800,1999 [facility] Stop: 07/16/17 07:59 Last Admin: 05/20/17 08:56 Dose: 15 ml Ciprofloxacin (Cipro 0.3% Ophth Soln) 2 drop RIGHT EYE Q6H [facility] Stop: 07/16/17 13:59 Last Admin: 05/20/17 14:03 Dose: 2 drop Hydralazine HCl (Apresoline) 10 mg GT Q6H PRN PRN Reason: SBP ABOVE 160 Stop: 07/16/17 08:10 Last Admin: 05/19/17 04:10 Dose: 10 mg Piperacillin Sod/Tazobactam (Sod 3.375 gm/ Sodium Chloride) 50 mls @ 100 mls/ hr IV Q8H [facility] Stop: 07/16/17 10:59 Last Infusion: 05/20/17 11:18 Dose: Infused Sodium Chloride (Nacl 0.9%) 1,000 mls @ 100 mls/hr IV .Q10H ONE Stop: 05/20/17 16:29 Ipratropium [place] (Atrovent Neb 0.5mg/2.5ml) 0.5 mg HHN Q4HRT PRN PRN Reason: Shortness of Breath Stop: 07/16/17 08:10 Last Admin: 05/20/17 07:16 Dose: 0.5 mg Levetiracetam (Keppra) 500 mg PO BID [facility]O Stop: 07/16/17 08:59 Last Admin: 05/20/17 08:54 Dose: 500 mg Magnesium Hydroxide (Milk Of Magnesia) 30 ml GT Q4H PRN PRN Reason: Constipation Stop: 07/16/17 08:10 Metoclopramide HCl (Reglan) 5 mg GT Q6H PRN PRN Reason: gerd Stop: 07/16/17 08:10 Metoprolol Tartrate (Lopressor) 12.5 mg GT DAILY [facility] Stop: 07/16/17 08:59 Last Admin: 05/20/17 08:53 Dose: 12.5 mg Miscellaneous (Zosyn Iv Per Pharmacy) 1 [facility] PRN PRN PRN Reason: PROTOCOL Stop: 07/16/17 03:42 Miscellaneous ([employer] Prophylaxis Screen/ Admission) 1 [facility] PRN PRN PRN Reason: PROTOCOL Stop: 07/16/17 11:11 Pantoprazole Sodium (Protonix) 40 mg GT QDAC [facility]O Stop: 07/16/17 08:59 Last Admin: 05/20/17 06:58 Dose: 40 mg Prednisone (Deltasone) 5 mg GT DAILY [facility]O Stop: 07/16/17 08:59 Last Admin: 05/20/17 08:54 Dose: 5 mg General: no acute distress, well developed, well nourished HEENT: atraumatic, normocephalic, PERRLA, EOMI, moist mucous membrane Neck: supple, no thyromegaly Cardiovascular: S1S2, regular Lungs: clear to auscultation bilaterally, clear to percussion Abdomen: soft, no tender Extremities: no cyanosis, no clubbing, no edema Neurological: awake, alert, oriented Skin: intact - Procedures Procedures: Procedures Procedure Code Date BLOOD TRANSFUSION SERVICE 35738 05/17/17 RESPIRATORY VENTILATION, 24-96 CONSECUTIVE HOURS [id number] 05/17/17 TRANSFUSE NONAUT RED BLOOD CELLS IN PERIPH VEIN, PERC 13867L0 05/17/17 Infectious Disease Assmt/Plan - Assessment Assessment: 1. Pneumonia. 2. Urinary tract infection. 3. Right eye conjunctivitis. 4. Vent-dependent respiratory failure. 5. Anoxic encephalopathy. 6. Diabetes mellitus type 2. 7. Hypertension. 8. Coronary artery disease. 9. History of cardiopulmonary arrest. 10. Congestive heart failure. 11. Dysphagia, G-tube placement. 12. Seizure disorder. - Plan Plan: Continue Zosyn. Check the right eye culture. chasnge Cipro eyedrops to gentamicin eye drops. Nutritional Asmnt/Malnutr-PDOC - Dietary Evaluation Malnutrition Findings (Please click <Entered> for more info): Nutritional Asmnt/Malnutrition Start: 05/17/17 07: 59 Text: Status: Complete Freq: Document 05/18/17 09:30 [email or web address] (Rec: 05/18/17 09:41 [email or web address]) Nutritional Asmnt/Malnutrition Patient General Information Nutritional Screening High Risk Diagnosis severe anemia, PNA, UTI Pertinent Medical Hx/Surgical Hx vent dependent, PEG, dysphagia , CHF, HTN, DM, CAD, COPD, PUD , GERD, Seizure Subjective Information Pt on vent. TF running @ goal rate. No residuals noted. Current Diet Order/ Nutrition Support Fibersource HN @ 60 ml/hr Patient / S.O Not Indicated Pertinent Medications vit c, cipro, insulin, milk of magnesia, reglan, protonix, prednisone Pertinent Labs (05/18) Na: 131, K: 3.4, BUN: 28, glucose: 96-170, alk phos: 153 Nutritional Hx/Data Height 1.63 m Height (Calculated Centimeters) 162.6 Current Weight (lbs) 63.503 kg Weight (Calculated Kilograms) 63.5 Weight (Calculated Grams) 92533.9 [place] Body Weight 130 lbs % [place] Body Weight 108 Body Mass Index (BMI) 24.0 Weight Status Approriate GI Symptoms GI Symptoms None Last BM 05/17 Difficult in: Swallowing Skin Integrity/Comment: pressure ulcer to sacrum, awaiting wound consult for staging Estimated Nutritional Goals BEE in Kcals: Using Current wt Calories/Kcals/Kg 25-30 Kcals Calculated 0072-2078 Protein: Using Current wt Protein g/k-1.2 Protein Calculated 64-77 g Fluid: ml 5627-9061 mL (1 mL/kcal) Nutritional Problem 2. Problem Problem altered nutrition related lab values Etiology pt on non diabetic TF Signs/Symptoms: glcose: 96-170 1. Problem Problem increased nutrient needs Etiology wounds Signs/Symptoms: pressure ulcer to sacrum Intervention/Recommendation Comments Recommend change TF to Diabetisource AC @ 65 ml/hr x 20 hours to provide 1300 mL total volume, 1560 kcals, 78 g pro, 1061 mL free h2o. Flush with 100 mL q 4 hours. Expected Outcomes/Goals Expected Outcomes/Goals goal: meet >75% of needs, improved skin integrity monitor wts, labs, skin, PO intake
[2017-05-20] MEDS ORDERED: Gentamicin 0.3% Ophth Soln 5mL Bottle RIGHT EYE SCH (16:00)
--- NOTE | 2017-05-29 08:54 | Discharge Summary ---
DATE OF DISCHARGE: 05/20/2017 HOSPITAL COURSE: This patient is admitted for severe anemia and patient had UTI as well as sepsis and the patient ____, status post trach and vent. The patient with a history of anoxic encephalopathy, diabetes, hypertension, history of cardiopulmonary arrest, history of CHF, and history of seizures and essentially this patient was admitted initially because of severe anemia. The patient had UTI and sepsis and the patient was in the ICU, was treated for all of that with IV antibiotics and the patient's ventilator support was discontinued and the patient gradually improved and the patient also had a pulmonary consultation with, I believe, Dr. Jim Taylor and also Dr. Cirilo Taylor, ID consult. The patient gradually improved and the patient was in stable condition on 05/20/2017. The patient was sent back to [place] where I will be following the patient. FINAL DIAGNOSES: Anemia, improved; UTI improving; VDRF, status post trach and vent status; history of anoxic encephalopathy; history of cardiac arrest; and history of seizures; and the patient's condition at time of discharge stable. PROGNOSIS: Guarded. MEDICATION: Please see the reconciliation. DIET: Please see the reconciliation. ACTIVITY: Please see the reconciliation. JOB# [id number]
== END 2017-05-20 19:07 | disposition home or self-care (01) | DRG 208 ==
LOC: ER 23:49 → ICU 05-17 03:35
PROVIDERS: ADMIT Internal Medicine; ATTEND Internal Medicine
PROC: 5A1945Z Respiratory Ventilation, 24-96 Consecutive Hours (ICD-10-PCS; principal; 2017-05-17)
PROC: 30233N1 Transfusion of Nonautologous Red Blood Cells into Peripheral Vein, Percutaneous Approach (ICD-10-PCS; 2017-05-17)
DX: J18.9 Pneumonia, unspecified organism (principal); J96.20 Acute and chronic respiratory failure, unspecified whether with hypoxia or hypercapnia; Z99.11 Dependence on respirator [ventilator] status; G93.1 Anoxic brain damage, not elsewhere classified; Z93.0 Tracheostomy status; J44.0 Chronic obstructive pulmonary disease with (acute) lower respiratory infection; N39.0 Urinary tract infection, site not specified; J98.11 Atelectasis; E87.1 Hypo-osmolality and hyponatremia; L03.116 Cellulitis of left lower limb; L03.115 Cellulitis of right lower limb; L03.311 Cellulitis of abdominal wall; I11.0 Hypertensive heart disease with heart failure; I50.9 Heart failure, unspecified; E87.8 Other disorders of electrolyte and fluid balance, not elsewhere classified; H10.9 Unspecified conjunctivitis; E11.9 Type 2 diabetes mellitus without complications; I25.10 Atherosclerotic heart disease of native coronary artery without angina pectoris; R13.10 Dysphagia, unspecified; G40.909 Epilepsy, unspecified, not intractable, without status epilepticus; D64.9 Anemia, unspecified; K21.9 Gastro-esophageal reflux disease without esophagitis; F03.90 Unspecified dementia, unspecified severity, without behavioral disturbance, psychotic disturbance, mood disturbance, and anxiety; B35.6 Tinea cruris; E66.9 Obesity, unspecified; K27.9 Peptic ulcer, site unspecified, unspecified as acute or chronic, without hemorrhage or perforation; Z86.73 Personal history of transient ischemic attack (TIA), and cerebral infarction without residual deficits; Z93.1 Gastrostomy status; I25.2 Old myocardial infarction; Z79.4 Long term (current) use of insulin; Z68.24 Body mass index [BMI] 24.0-24.9, adult
CPT/HCPCS: 36415-UA; 71045-TC; 80048-TC; 80053-TC; 81001-TC; 82270-TC; 82607-90; 82728-90; 82746-90; 82803-TC; 82948-90; 83010-90; 83540-90; 83550-90; 83605; 84132-TC; 85007-TC; 85014-TC; 85018-TC; 85025-TC; 85027-TC; 85044-TC; 86850-TC; 86900-TC; 86901-TC; 86922-TC; 87070; 87070-90; 87086-90; 90779; 93005; 94002; 94003; 94760; J0770; J1644; J1815; J2543; J3480; J7030; J7512; J7613; P9016; Z7610

== ENCOUNTER 2017-05-24 21:59 | Inpatient (IN) | payer MEDICARE, MEDICAID ==
[2017-05-24] MEDS ORDERED: Meropenem 1 GM in Sodium Chloride 0.9% 100 ML IV ONE (22:26)
[2017-05-24] MEDS ORDERED: Levofloxacin 500mg/100mL 500 MG/100 ML BAG IV ONE ×2 (22:27→22:53)
[2017-05-24 22:53] LABS: HEMATOCRIT 25.6 % (41.0-60); HEMOGLOBIN 8.9 gm/dL (12-16); MEAN CELL VOLUME 86.2 fl (80-99); MEAN CORPUSCULAR HEMOGLOBIN 30.1 pg (27.0-31.0); MEAN CORPUSCULAR HGB CONC 34.9 pg (28.0-36.0); MEAN PLATELET VOLUME 5.8 fl; PLATELET COUNT 231 Th/cmm (150-400); RED BLOOD COUNT 2.97 Mil/cmm (3.80-5.80); RED CELL DISTRIBUTION WIDTH 16.1 % (11.5-20.0)
[2017-05-24] MEDS ORDERED: Piperacillin Sodium/Tazobact 3.375 gm Vial IV ONE (22:53)
[2017-05-24 22:59] LABS: % LYMPHOCYTES 15.7 % (20.0-50.0)
[2017-05-24 23:00] LABS: % BASOPHILS 0.6 % (0.0-2.0); % EOSINOPHILS 7.1 % (0.0-5.0); % MONOCYTES 4.6 % (2.0-10.0); EOSINOPHILE ABSOLUTE 0.4 Th/cmm (0.1-0.4); LYMPHOCYTE ABSOLUTE 0.9 Th/cmm (1.5-3.0); MONOCYTE ABSOLUTE 0.3 Th/cmm (0.3-1.0); NEUTROPHILE ABSOLUTE 4.2 Th/cmm (1.8-8.0)
[2017-05-24 23:05] LABS: ALB/GLOB RATIO 0.7 (1.0-1.8); ALBUMIN 2.5 gm/dL (4.2-5.5); ALKALINE PHOSPHATASE 105 U/L (34-104); ANION GAP 13.1 (7.0-16.0); BILIRUBIN,TOTAL 0.4 mg/dL (0.3-1.0); BUN - UREA NITROGEN 27 mg/dL (7-25); CARBON DIOXIDE 31.9 mEq/L (21.0-31.0); CHLORIDE 94 mEq/L (98-107); CREATININE - SERUM 1.2 mg/dL (0.7-1.3); GFR AFRICAN-AMERICAN > 60.0 ml/min (>90); GFR NON AFRICAN-AMERICAN > 60.0 ml/min; GLUCOSE 83 mg/dL (70-105); MAGNESIUM 1.8 mg/dL (1.9-2.7); SGOT 57 U/L (13-39); SGPT/ALT 53 U/L (7-52); SODIUM SERUM 135 mEq/L (136-145); TOTAL PROTEIN,SERUM 6.3 gm/dL (6.0-8.3)
--- NOTE | 2017-05-24 23:57 | ER Physician Documentation ---
DATE OF SERVICE: 05/24/2017 EMERGENCY ROOM EVALUATION AND TREATMENT The patient came from Emergency Room. PATIENT OF: Dr. Ochoa The patient has no known allergies. Body surface area 1.68 meters. I was told the patient is DNR, but I do not see anything written over here. Let me see if I can find at some other place. The patient has DNR status. This was a patient who came from [facility] because the patient's lab results were abnormal. Hemoglobin was 6.6, hematocrit was 20.4. The patient was on ventilation. The patient has a tracheostomy. The patient was kept on assist control of 450 tidal volume, 35% oxygen. Blood gas will be drawn in one hour. There were purulent bloody and pus-like secretions around the throat area is noted and that area ordered to be getting a culture to be done. The patient is a total DNR patient. The patient is ambulatory, has no loss of consciousness. AA x 0. The patient's weight is 63.5 taken by the triage nurse. Temperature is 97.7, pulse is 92, respirations 18, blood pressure 156/96, oxygen saturation is 95%. The patient has a Yates catheter. The patient has a PICC line in the left upper arm. Tracheostomy , there is positive community-resistant enterococcus in the sputum, ESBL in the urine, conjunctivitis in the left eye. I think I see some evidence of that in the right eye also to be seen. Reason for transfer is abnormal lab results, REVD, anemia, urinary tract infection, dysphagia, GI bleeding. Other relevant diagnosis was hypertension and chronic obstructive lung disease, diabetes mellitus, seizure disorder, peptic ulcer disease, right eye conjunctivitis, ESBL in the urine. The patient's current diet order is GTF Fibersource 60 mL an hour 20 hours a day. Last vital signs taken over there was temperature 98.3, pulse of 76, respirations 22, blood pressure 128/78, oxygen saturation 97%. Pain is 0 by 7. Some of the things; lab results came from the other hospital showed that the white count was 8.82, hemoglobin 6.6, hematocrit is 20.4, platelet count of 116,000. MPV is 8.8. Dr. Ochoa had advised that the patient should be transferred here for blood transfusion, etc. The patient's lab results showed WBC count to be 65.7, lymphocytes to be 10.20, monocytes 10.20, eosinophil is 12.0 6.5 are found. Prealbumin level was 12, very low. Glucose level was 101. I am not sure where this was taken, but BUN was 25, creatinine 1.17. This lab results was done 05/23/2017, that means almost a day before coming here, patient had all this labs were done, which showed all these abnormal lab results. Calcium was 8 only. Albumin is 2.3, markedly low hypoalbuminemia. Total protein level is only 5.3. No history is available from the patient and hence most of the history is taken from patient's records. The patient was just here in this hospital and was kept for 3-4 days and was given blood transfusions and other treatment. Dr. Hector Adams saw the patient, I believe, he is a pulmonary doctor. He gave some treatment to the patient. For chronic respiratory failure, is ventilator dependent. The patient was found to have low hemoglobin and low CBC. The patient was transferred and transfused. The patient's hemoglobin in the Emergency Room at that time was 6.7, received blood transfusion. He is known to have chronic respiratory failure, tracheostomy. He has dementia, dysphagia. REVIEW OF SYSTEMS: Unable to be obtained. At the present moment, the patient on physical examination. Right eye has dressing with conjunctivitis, left eye conjunctivitis is better. The patient is contracted, so he cannot move any extremities. Elbow heel pad has been seen. The patient has tracheostomy connected to the respiratory failure. No other history from the patient could be obtained. CHEST: Scattered rales and rhonchi heard in both lung [place]. ABDOMEN: Soft, benign, negative. He has a G-tube in place and there were some crackles and gurgling sounds heard, hence feeding was stopped for the time being until we get some more assessment from the x-rays, etc. Heart reveals normal heart sounds. No fourth heart sound. Second heart sound is physiologically split. Third heart sound is absent. CLINICAL IMPRESSION: The patient has chronic respiratory failure, COPD, emphysema, bronchitis and lung infection. He has MRSA. Probably he has urine infection present. He has infection present in the lungs. Conjunctivitis in the eyes. The patient has a Yates catheter. CRE in the sputum, ESBL in the urine, conjunctivitis in the left eye. The patient is a DNR patient. No known allergies. The patient has urinary tract infection. The patient will be given triple antibiotic. All the lab workup has been ordered. Chest x-ray has been ordered. I will just look at it to see if there is any pneumonia, but most likely there has to be I see that there is a pus and purulent discharge seen in the trach site. The patient's other substances is that the patient's whole blood lactic acid was 1.88 when the patient was here in a few days ago. Urine was leukocyte esterase was positive, bacteria moderate, occult blood there was O positive. Cross match, etc was done. The patient was given air loss mattresses and heel protectors for skin integrity management, foot cradle monitor, cattle sticker, serum iron, iron binding capacity etc., has been ordered. Other medications insulin coverage for diabetes mellitus has been ordered at intermediate and will be carried out over here. The patient's other medications the patient is getting at the intermediate include Colace, Senna, milk of magnesia, Dulcolax, Fleets enema, Zosyn as antibiotic coverage has been ordered. Dr. Ochoa is the patient's primary doctor. Dr. Chad Jeffery is the patient's trust manager. Applique Sewer is Dr. Chloe Brown. He is on [facility]. Phone number is [phone] and Isis Vazquez is the person. Contact relationship is Vonnie Obrien. Family decision maker is son living at [address] [place] [address]. Total time spent at the present moment is 1 hour, more time will be needed to stay with EKG, chest x-ray, etc has been ordered. I will look at it. JOB# [id number]
[2017-05-25 00:11] LABS: pH 7.52 (7.35-7.45)
[2017-05-25 00:12] LABS: ALLEN TEST Y
[2017-05-25] MEDS ORDERED: Sodium Chloride 0.9% 1,000 ML IV ONE (00:42)
[2017-05-25] MEDS ORDERED: Albuterol/Ipratropium Neb 3 ML AERS HHN PRN ×2 (01:42→20:59)
[2017-05-25] MEDS ORDERED: Vancomycin HCl 1.5 GM in Sodium Chloride 0.9% 500 ML IV ONE (02:00)
[2017-05-25] MEDS: Albuterol/Ipratropium Neb 3 ML AERS HHN SCH ×4 (02:13→19:07)
[2017-05-25 02:55] LABS: URINE MICROSCOPIC INDICATED? YES; URINE SOURCE FOLEY PORT
[2017-05-25 03:53] VITALS: BP 111/81
[2017-05-25] MEDS ORDERED: Piperacillin Sodium/Tazobact 3.375 gm Vial IV ONE (04:30)
[2017-05-25 04:53] LABS: MONOCYTE ABSOLUTE 0.5 Th/cmm (0.3-1.0)
[2017-05-25 04:56] LABS: ANION GAP 4.7 (7.0-16.0); BUN - UREA NITROGEN 28 mg/dL (7-25); CARBON DIOXIDE 32.2 mEq/L (21.0-31.0); CHLORIDE 103 mEq/L (98-107); CREATININE - SERUM 1.2 mg/dL (0.7-1.3); GFR AFRICAN-AMERICAN > 60.0 ml/min (>90); GFR NON AFRICAN-AMERICAN > 60.0 ml/min; GLUCOSE 68 mg/dL (70-105); POTASSIUM SERUM 3.9 mEq/L (3.5-5.1); SODIUM SERUM 136 mEq/L (136-145)
[2017-05-25 04:57] LABS: % BASOPHILS 0.9 % (0.0-2.0); % EOSINOPHILS 9.8 % (0.0-5.0); % LYMPHOCYTES 17.3 % (20.0-50.0); BASOPHILE ABSOLUTE 0.1 Th/cumm (0-0.2); HEMATOCRIT 24.9 % (41.0-60); HEMOGLOBIN 8.7 gm/dL (12-16); LYMPHOCYTE ABSOLUTE 1.9 Th/cmm (1.5-3.0); MEAN CELL VOLUME 86.4 fl (80-99); MEAN CORPUSCULAR HGB CONC 34.7 pg (28.0-36.0); NEUTROPHILE ABSOLUTE 7.2 Th/cmm (1.8-8.0); PLATELET COUNT 251 Th/cmm (150-400); RED BLOOD COUNT 2.89 Mil/cmm (3.80-5.80); RED CELL DISTRIBUTION WIDTH 16.4 % (11.5-20.0); WHITE BLOOD COUNT 10.7 Th/cmm (4.8-10.8)
[2017-05-25 05:11] LABS: URINE BILIRUBIN NEGATIVE (NEGATIVE); URINE BLOOD SMALL (NEGATIVE); URINE GLUCOSE (UA) NEGATIVE (NEGATIVE); URINE KETONE NEGATIVE (NEGATIVE); URINE LEUKOCYTE ESTERASE NEGATIVE (NEGATIVE); URINE NITRATE NEGATIVE (NEGATIVE); URINE PH 7.5 (4.6 - 8.0); URINE PROTEIN NEGATIVE (NEGATIVE); URINE UROBILINOGEN 0.2 E.U./dL (0.2 - 1.0)
[2017-05-25 05:13] LABS: URINE CLARITY CLEAR (CLEAR); URINE COLOR YELLOW
[2017-05-25 05:15] LABS: URINE BACTERIA OCCASIONAL /hpf (NONE SEEN); URINE EPITHELIAL CELLS OCCASIONAL /lpf (FEW); URINE RBC 0-2 /hpf (0-5)
--- NOTE | 2017-05-25 07:38 | Diagnostic Imaging Report ---
CHEST X-RAY: AP view INDICATION: Pneumonia COMPARISON: 05/18/2017 radial limited as FINDINGS: Support devices are stable. Mild congestive changes are seen with small effusions. Pneumonia of the left lung base cannot be excluded. Heart size is within normal limits. IMPRESSION: Persistent mild congestive changes and small effusions. Infiltrate of the left lung base cannot be excluded.
[2017-05-25] MEDS ORDERED: Chlorhexidine Gluconate 0.12% 15mL Mouthwash MM SCH (08:00)
[2017-05-25] MEDS: Chlorhexidine Gluconate 0.12% 15mL Mouthwash MM SCH ×2 (08:00→20:03)
[2017-05-25] MEDS ORDERED: VTE Chemical Prophylaxis Screen/Admission MC PRN (11:26)
--- NOTE | 2017-05-25 18:05 | Consultation ---
DATE OF CONSULTATION: 05/25/2017 PATIENT OF: Dr. Ochoa. Thank you very much Dr. Ochoa for this consultation. HISTORY OF PRESENT ILLNESS: This is a 66-year-old male who has history of chronic respiratory failure, ventilator dependent, was recently discharged, being treated for pneumonia. The patient apparently was found to have anemia and was admitted for further treatment and management and received blood transfusions, blood count went up from 8.7. PAST MEDICAL HISTORY: Chronic respiratory failure, dysphagia, history of COPD, diabetes mellitus, seizure disorder, hypertension. REVIEW OF SYSTEMS: Unable to obtain because of the patient's condition. PHYSICAL EXAMINATION: GENERAL: The patient is awake, alert, not in acute distress. VITAL SIGNS: Temperature 98.6, pulse 105, respiration is 16, blood pressure 120/76, saturation 100%. HEENT: Atraumatic, normocephalic. Pupils react to light and accommodation. Ears, nose and throat are normal. NECK: Supple. No JVD. CHEST: There are good breath sounds. No wheezing or crackles, few rhonchi in bases. HEART: Regular rate and rhythm. ABDOMEN: Soft, nontender. EXTREMITIES: No edema. LABORATORY DATA: WBC is 10.7, hemoglobin 8.7, platelets 251. Sodium is 136, potassium 3.9, BUN is 28, creatinine 1.2. ABGs: pH 7.52, pCO2 of 43, pO2 139, bicarbonate 33, saturation 99%. Chest x-ray showed tracheostomy tube in place and effusion on the left base, some atelectasis and small infiltrate. IMPRESSION: This is a 66-year-old male with: 1. Status post recent pneumonia. 2. Acute on chronic respiratory failure. 3. Anemia. PLAN: 1. Nebulizer treatment. 2. Ventilatory support. 3. Antibiotics. 4. Supportive care and observe hemoglobin. Might benefit from LTAC evaluation. JOB# [id number]
--- NOTE | 2017-05-25 20:50 | History and Physical ---
History of Present Illness - HPI Chief Complaint: abnormal labs HPI: This is a 66 year old male who is a resident of [facility] admitted due to hgn of 6.6 Vital Signs: Last Vital Signs Temp 98.4 F 05/25/17 20:00 Pulse 108 05/25/17 20:00 Resp 12 05/25/17 20:00 BP 112/67 05/25/17 20:00 Pulse Ox 97 05/25/17 20:00 Past Medical History Other History: chronic respiratory failure vdrf copd seizure pud dysphagia esbl sputum - Past Surgical History Past Surgical History: Other (trach/peg) Family Medical History - Family Member Mother History Unknown: Yes Ethnicity: Non- Social History Smoke: No Alcohol: None Drugs: None Lives: Long-Term - Medications Home Medications: Home Medication Medication Instructions Recorded Type Acetaminophen [Tylenol] 650 mg GT Q4HR PRN 05/17/17 History Albuterol Nebulizer 2.5mg/3mL 2.5 mg IH Q4HR PRN 05/17/17 History [Albuterol Neb UD*] Albuterol/Ipratropium Neb [Duoneb 3 ml HHN Q2HR PRN 05/17/17 History Neb] Amiodarone [Cordarone] 200 mg GT DAILY 05/17/17 History Chlorhexidine Gluconate 0.12% 15 ml MM BID 05/17/17 History [Peridex] Colistimethate [Colistin] 75 mg INH BID 05/17/17 History Hydralazine HCl 10 mg GT Q6H PRN 05/17/17 History Insulin Human Regular [NovoLIN R] See Protocol SUBQ BID 05/17/17 History Ipratropium Neb 0.5 mg/2.5 mL 0.5 mg HHN Q4HR PRN 05/17/17 History [Atrovent Neb 0.5MG/2.5ML] Levetiracetam [Keppra] 500 mg GT BID 05/17/17 History Magnesium Hydroxide [Milk of 30 ml GT Q4H PRN 05/17/17 History Magnesia] Metoclopramide [Reglan] 5 mg GT Q6H PRN 05/17/17 History Metoprolol Tartrate [Lopressor] 12.5 mg GT DAILY 05/17/17 History Multivitamin w/ Minerals 5 ml GT DAILY 05/17/17 History [Theragran M] Pantoprazole [Protonix] 40 mg GT DAILY 05/17/17 History Prednisone 5 mg GT DAILY 05/17/17 History Vit C/Ascorbate Ca/Ascorb Sod 500 mg GT DAILY 05/17/17 History [Vitamin C 500 mg/15 ml Liquid] Xwoaytdqmyus-Akxm-Laemukjm,Iso 3.375 gm IV Q8HR 05/24/17 History [Zosyn 3.375 gm/50 ml Galaxy] - Allergies Allergies/Adverse Reactions: Allergies Allergy/AdvReac Type Severity Reaction Status Date / Time No Known Allergies Allergy Verified 05/17/17 00:10 Review of Systems - Review of Systems Constitutional: Report: Weakness Eyes: Report: No Significant ENT: Report: No Significant Respiratory: Report: Sputum Cardiovascular: Report: No Significant Neurological: Report: Weakness Physical Exam - Physical Exam HEENT: Report: Ears Nose Throat within normal limits Neck: Report: Within normal limits Cardiovascular Systems: Report: +s1/s2 noted, no murmurs noted Respiratory: Report: Rhonchi Abdomen: Report: Non-tender to palpation Back: Report: Inspection of back is within normal limits. Extremities: Report: Non-tender to palpation. Skin: Report: Color of skin is within normal limits Neuro/Psych: Report: Weakness or sensory loss noted. - Lab Results All Lab Results last 24 hours: Laboratory Results - last 24 hr 05/24/17 05/25/17 05/25/17 23:58 00:00 04:15 WBC 10.7 RBC 2.89 L Hgb 8.7 L Hct 24.9 L MCV 86.4 MCH 30.0 MCHC Differential 34.7 RDW 16.4 Plt Count 251 MPV 6.0 Neutrophils % 67.0 Lymphocytes % 17.3 L Monocytes % 5.0 Eosinophils % 9.8 H Basophils % 0.9 Specimen Source ARTERIAL Sample Site Right Radial pH 7.52 H pCO2 43.0 pO2 139.0 H HCO3 33.6 H Base Excess 11.0 H O2 Saturation 99.0 Nader Test Y Vent Rate 14 Inspired O2 35 Tidal Volume 450 PEEP 5 Pressure (ins/psv/peep) N/A Critical Value O.ESTRELLA Sodium Potassium Chloride Carbon Dioxide Anion Gap BUN Creatinine Est GFR ( Amer) Est GFR (Non-Af Amer) BUN/Creatinine Ratio Glucose POC Glucose Calcium Urine Source [place] Urine Color YELLOW Urine Clarity CLEAR Urine pH 7.5 Ur Specific [place] 1.010 Urine Protein NEGATIVE Urine Glucose (UA) NEGATIVE Urine Ketones NEGATIVE Urine Blood SMALL H Urine Nitrate NEGATIVE Urine Bilirubin NEGATIVE Urine Urobilinogen 0.2 Ur Leukocyte Esterase NEGATIVE Urine RBC 0-2 H Urine WBC 2-5 Ur Epithelial Cells OCCASIONAL Urine Bacteria OCCASIONAL Blood Type Antibody Screen 05/25/17 05/25/17 05/25/17 04:15 04:15 12:13 WBC RBC Hgb Hct MCV MCH MCHC Differential RDW Plt Count MPV Neutrophils % Lymphocytes % Monocytes % Eosinophils % Basophils % Specimen Source Sample Site pH pCO2 pO2 HCO3 Base Excess O2 Saturation Nader Test Vent Rate Inspired O2 Tidal Volume PEEP Pressure (ins/psv/peep) Critical Value Sodium 136 Potassium 3.9 Chloride 103 Carbon Dioxide 32.2 H Anion Gap 4.7 L BUN 28 H Creatinine 1.2 Est GFR ( Amer) > 60.0 Est GFR (Non-Af Amer) > 60.0 BUN/Creatinine Ratio 23.3 Glucose 68 L POC Glucose 104 Calcium 9.0 Urine Source Urine Color Urine Clarity Urine pH Ur Specific [place] Urine Protein Urine Glucose (UA) Urine Ketones Urine Blood Urine Nitrate Urine Bilirubin Urine Urobilinogen Ur Leukocyte Esterase Urine RBC Urine WBC Ur Epithelial Cells Urine Bacteria Blood Type O POSITIVE Antibody Screen NEGATIVE 05/25/17 18:10 WBC RBC Hgb Hct MCV MCH MCHC Differential RDW Plt Count MPV Neutrophils % Lymphocytes % Monocytes % Eosinophils % Basophils % Specimen Source Sample Site pH pCO2 pO2 HCO3 Base Excess O2 Saturation Nader Test Vent Rate Inspired O2 Tidal Volume PEEP Pressure (ins/psv/peep) Critical Value Sodium Potassium Chloride Carbon Dioxide Anion Gap BUN Creatinine Est GFR ( Amer) Est GFR (Non-Af Amer) BUN/Creatinine Ratio Glucose POC Glucose 127 H Calcium Urine Source Urine Color Urine Clarity Urine pH Ur Specific [place] Urine Protein Urine Glucose (UA) Urine Ketones Urine Blood Urine Nitrate Urine Bilirubin Urine Urobilinogen Ur Leukocyte Esterase Urine RBC Urine WBC Ur Epithelial Cells Urine Bacteria Blood Type Antibody Screen - Assessment Assessment: acute uti chronic respiratory failure vdrf htn anemia hx esbl sputum - Plan Plan: pulmo consult vent support ivabx monitor h/h continue current orders
[2017-05-25] MEDS ORDERED: Ipratropium Neb 0.5 mg/2.5 mL UD HHN PRN (20:59)
[2017-05-25] MEDS ORDERED: Magnesium Hydroxide (MOM) 30 mL UDC GT PRN (20:59)
[2017-05-25] MEDS ORDERED: Levofloxacin 500mg/100mL 500 MG/100 ML BAG IV SCH (21:00)
[2017-05-25] MEDS ORDERED: PIPERACILLIN TAZO DEXTROSE ISO IV SCH (21:00)
[2017-05-25] MEDS ORDERED: [UNRECOGNIZED DRUG - OTHER] IV SCH (21:00)
[2017-05-26] MEDS: Albuterol/Ipratropium Neb 3 ML AERS HHN SCH ×4 (00:53→18:29)
[2017-05-26] MEDS ORDERED: Cefepime 2 GM in Sodium Chloride 0.9% 100 ML IV ONE (01:15)
[2017-05-26] MEDS: Sodium Chloride 0.9% 1,000 ML IV SCH ×2 (01:45→16:51)
[2017-05-26] MEDS: Gentamicin 0.3% Ophth Soln 5mL Bottle RIGHT EYE SCH ×4 (02:03→19:50)
--- NOTE | 2017-05-26 05:19 | Consultation ---
DATE OF CONSULTATION: 05/25/2017 INFECTIOUS DISEASE CONSULTATION REFERRING PHYSICIAN: Eliel Ochoa M.D. REASON FOR CONSULTATION: Sepsis. HISTORY OF PRESENT ILLNESS: The patient is a 66-year-old male with a past medical history of vent-dependent respiratory failure, dysphagia and G-tube placement and status post cardiopulmonary arrest, brought in from subacute facility for low hemoglobin. His hemoglobin was 6.6. Besides this, he was found to have conjunctivitis of right eye, which was diagnosed in last admission. However, he is better, but needed more antibiotics. ID consult was called for further antibiotic management. PAST MEDICAL HISTORY: Includes status post cardiopulmonary arrest, vent-dependent respiratory failure, dysphagia and G-tube placement, encephalopathy, history of CHF, hypertension, diabetes mellitus type 2, coronary artery disease, asthma, COPD, peptic ulcer disease, GERD, seizure disorder. ALLERGIES: NKDA. MEDICATIONS: As per medication reconciliation sheet. Antibiotic guzman, the patient is receiving vancomycin and Zosyn. The patient is also receiving Levaquin. FAMILY HISTORY: Not available. REVIEW OF SYSTEMS: Unable to obtain. The patient has no fever, on the ventilator. PHYSICAL EXAMINATION: VITAL SIGNS: Current vital signs shows temperature is 98.4 degrees Fahrenheit, pulse 104, respirations 13, blood pressure 123/69. GENERAL: The patient is comfortable lying in bed, on ventilator, status post tracheostomy. HEENT: Head is normocephalic, atraumatic. Oral cavity moist, pink tongue. Eyes: The right eye has very mild conjunctival incision better than before. Although there is mild corneal opacity in lower part. NECK: Trach site is clear. CHEST: Good breath sounds. No wheezing or crackles. HEART: S1, S2 within normal limits. Regular rhythm. No murmur, no gallop. ABDOMEN: Soft, nontender, nondistended. Bowel sounds present. G-tube is clear. EXTREMITIES: No cyanosis, no clubbing, no edema. NEUROLOGIC: Opens eyes. Unable to communicate. LABORATORY DATA: Current lab shows WBC count is 10,700, hemoglobin 8.7, hematocrit 24.8, platelets are 251,000, neutrophils 67%. Sodium 136, potassium 3.9, chloride 103, bicarbonate is 32, BUN is 28, creatinine 1.2 and glucose is 68. Chest x-ray shows congestion and possible left lower lobe infiltrate. IMPRESSION: 1. Left lower lobe pneumonia. 2. Right eye conjunctivitis. 3. Status post cardiopulmonary arrest. 4. Encephalopathy. 5. Ventilator dependent respiratory failure. 6. History of hypertension. 7. Congestive heart failure. 8. Diabetes mellitus type 2. 9. Coronary artery disease. 10. Chronic obstructive pulmonary disease. 11. Seizure disorder. RECOMMENDATION AND PLAN: We will change antibiotic to cefepime and give gentamicin eye drops. Thank you, Dr. Ochoa, for involving me in taking care of this patient. JOB# [id number]
[2017-05-26] MEDS ORDERED: Albumin 25% 25gm/100mL 25 GM/100 ML BTL IV ONE ×3 (07:01→07:18)
[2017-05-26 08:14] LABS: HEMATOCRIT 24.1 % (41.0-60); HEMOGLOBIN 8.4 gm/dL (12-16); MEAN CELL VOLUME 86.8 fl (80-99); MEAN CORPUSCULAR HEMOGLOBIN 30.1 pg (27.0-31.0); MEAN CORPUSCULAR HGB CONC 34.7 pg (28.0-36.0); MEAN PLATELET VOLUME 5.7 fl; PLATELET COUNT 204 Th/cmm (150-400); RED BLOOD COUNT 2.77 Mil/cmm (3.80-5.80); RED CELL DISTRIBUTION WIDTH 16.9 % (11.5-20.0); WHITE BLOOD COUNT 10.3 Th/cmm (4.8-10.8)
[2017-05-26 08:31] LABS: ANION GAP 14.6 (7.0-16.0); CALCIUM SERUM 8.8 mg/dL (8.6-10.3); CARBON DIOXIDE 24.7 mEq/L (21.0-31.0); CREATININE - SERUM 1.6 mg/dL (0.7-1.3); GFR AFRICAN-AMERICAN 55.7 ml/min (>90); GFR NON AFRICAN-AMERICAN 46.1 ml/min; POTASSIUM SERUM 3.3 mEq/L (3.5-5.1)
[2017-05-26] MEDS: Pantoprazole 40 mg/Packet GT SCH (08:36)
[2017-05-26] MEDS: INSULIN ASPART SLIDING SCALE 100 UNITS/ML UNIT SUBQ SCH ×2 (08:39→16:40)
[2017-05-26] MEDS: Chlorhexidine Gluconate 0.12% 15mL Mouthwash MM SCH ×2 (08:40→19:48)
[2017-05-26 08:42] LABS: TOTAL CELLS COUNTED 100
[2017-05-26] MEDS: Cefepime 2 gm in 0.9% NS 100 mL IV SCH ×2 (08:43→19:59)
[2017-05-26 08:45] LABS: ANISOCYTOSIS 1+; BAND NEUTROPHILE 11 % (0-10); EOSINOPHIL 4 % (0-5); LYMPHOCYTE 2 % (20-50); MONOCYTE 3 % (2-10); NEUTROPHILS 80 % (40-80); PLATELET ESTIMATE ADEQUATE (NORMAL)
[2017-05-26] MEDS ORDERED: Ascorbic Acid 500 mg/5 mL UDC GT SCH (09:00)
[2017-05-26] MEDS ORDERED: Chlorhexidine Gluconate 0.12% 480mL Bottle MM SCH (09:00)
[2017-05-26] MEDS ORDERED: Multivitamin w/ Minerals 15 mL UDC GT SCH (09:00)
[2017-05-26] MEDS ORDERED: Potassium Chloride Elixir 20 mEq /15 mL UDC GT ONE (11:18)
--- NOTE | 2017-05-26 11:32 | General Progress Note ---
Subjective - Review of Systems Events since last encounter: in no acute distress Objective - Results Result Diagrams: 05/26/17 07:55 05/26/17 07:55 Recent Labs: Laboratory Last Values WBC 10.3 Th/cmm (4.8-10.8) 05/26/17 07:55 RBC 2.77 Mil/cmm (3.80-5.80) L 05/26/17 07:55 Hgb 8.4 gm/dL (12-16) L 05/26/17 07:55 Hct 24.1 % (41.0-60) L 05/26/17 07:55 MCV 86.8 fl (80-99) 05/26/17 07:55 MCH 30.1 pg (27.0-31.0) 05/26/17 07:55 MCHC Differential 34.7 pg (28.0-36.0) 05/26/17 07:55 RDW 16.9 % (11.5-20.0) 05/26/17 07:55 Plt Count 204 Th/cmm (150-400) 05/26/17 07:55 MPV 5.7 fl 05/26/17 07:55 Neutrophils % 67.0 % (40.0-80.0) 05/25/17 04:15 Band Neutrophils % 11 % (0-10) H 05/26/17 07:55 Lymphocytes % 17.3 % (20.0-50.0) L 05/25/17 04:15 Monocytes % 5.0 % (2.0-10.0) 05/25/17 04:15 Eosinophils % 9.8 % (0.0-5.0) H 05/25/17 04:15 Basophils % 0.9 % (0.0-2.0) 05/25/17 04:15 Neutrophils (Manual) 80 % (40-80) 05/26/17 07:55 Lymphocytes 2 % (20-50) L 05/26/17 07:55 Monocytes 3 % (2-10) 05/26/17 07:55 Eosinophils 4 % (0-5) 05/26/17 07:55 Platelet Estimate ADEQUATE (NORMAL) 05/26/17 07:55 Anisocytosis 1+ 05/26/17 07:55 Specimen Source ARTERIAL 05/24/17 23:58 Sample Site Right Radial 05/24/17 23:58 pH 7.52 (7.35-7.45) H 05/24/17 23:58 pCO2 43.0 mmHg (35.0-45.0) 05/24/17 23:58 pO2 139.0 mmHg (80.0-100.0) H 05/24/17 23:58 HCO3 33.6 mEq/L (20.0-26.0) H 05/24/17 23:58 Base Excess 11.0 mEq/L (-3.0-3.0) H 05/24/17 23:58 O2 Saturation 99.0 % (92.0-100.0) 05/24/17 23:58 Nader Test Y 05/24/17 23:58 Vent Rate 14 05/24/17 23:58 Inspired O2 35 05/24/17 23:58 Tidal Volume 450 05/24/17 23:58 PEEP 5 05/24/17 23:58 Pressure (ins/psv/peep) N/A 05/24/17 23:58 Critical Value O.ESTRELLA 05/24/17 23:58 Sodium 137 mEq/L (136-145) 05/26/17 07:55 Potassium 3.3 mEq/L (3.5-5.1) L 05/26/17 07:55 Chloride 101 mEq/L (98-107) 05/26/17 07:55 Carbon Dioxide 24.7 mEq/L (21.0-31.0) 05/26/17 07:55 Anion Gap 14.6 (7.0-16.0) 05/26/17 07:55 BUN 28 mg/dL (7-25) H 05/26/17 07:55 Creatinine 1.6 mg/dL (0.7-1.3) H 05/26/17 07:55 Est GFR ( Amer) 55.7 ml/min (>90) 05/26/17 07:55 Est GFR (Non-Af Amer) 46.1 ml/min 05/26/17 07:55 BUN/Creatinine Ratio 17.5 05/26/17 07:55 Glucose 95 mg/dL (70-105) 05/26/17 07:55 POC Glucose 94 MG/DL (70 - 105) 05/26/17 07:26 Whole Bld Lactic Acid 1.43 mmol/L (0.60-1.99) 05/24/17 22:30 Calcium 8.8 mg/dL (8.6-10.3) 05/26/17 07:55 Magnesium 1.8 mg/dL (1.9-2.7) L 05/24/17 22:30 Total Bilirubin 0.4 mg/dL (0.3-1.0) 05/24/17 22:30 AST 57 U/L (13-39) H 05/24/17 22:30 ALT 53 U/L (7-52) H 05/24/17 22:30 Alkaline Phosphatase 105 U/L (34-104) H 05/24/17:30 Troponin I 0.01 ng/mL (0.01-0.05) 05/24/17: C-Reactive Protein 3.9 mg/dL (0.0-0.9) H 05/24/17: B-Natriuretic Peptide 115.0 pg/mL (5.0-100.0) H 05/24/17:30 Total Protein 6.3 gm/dL (6.0-8.3) 05/24/17 22: Albumin 2.5 gm/dL (4.2-5.5) L 05/24/17: Globulin 3.8 gm/dL 05/24/17: Albumin/Globulin Ratio 0.7 (1.0-1.8) L 05/24/17 22:30 Urine Source [place] 05/25/17 00:00 Urine Color YELLOW 05/25/17 00:00 Urine Clarity CLEAR (CLEAR) 05/25/17 00:00 Urine pH 7.5 (4.6 - 8.0) 05/25/17 00:00 Ur Specific [place] 1.010 (1.005-1.030) 05/25/17 00:00 Urine Protein NEGATIVE mg/dL (NEGATIVE) 05/25/17 00:00 Urine Glucose (UA) NEGATIVE mg/dL (NEGATIVE) 05/25/17 00:00 Urine Ketones NEGATIVE mg/dL (NEGATIVE) 05/25/17 00:00 Urine Blood SMALL (NEGATIVE) H 05/25/17 00:00 Urine Nitrate NEGATIVE (NEGATIVE) 05/25/17 00:00 Urine Bilirubin NEGATIVE (NEGATIVE) 05/25/17 00:00 Urine Urobilinogen 0.2 E.U./dL (0.2 - 1.0) 05/25/17 00:00 Ur Leukocyte Esterase NEGATIVE (NEGATIVE) 05/25/17 00:00 Urine RBC 0-2 /hpf (0-5) H 05/25/17 00:00 Urine WBC 2-5 /hpf (0-5) 05/25/17 00:00 Ur Epithelial Cells OCCASIONAL /lpf (FEW) 05/25/17 00:00 Urine Bacteria OCCASIONAL /hpf (NONE SEEN) 05/25/17 00:00 Blood Type O POSITIVE 05/25/17 04:15 Antibody Screen NEGATIVE 05/25/17 04:15 - Physical Exam Vitals and I&O: Vital Signs Temp 99.6 F 05/26/17 07:00 Pulse 120 05/26/17 10:58 Resp 18 05/26/17 10:00 BP 123/66 05/26/17 10:28 Pulse Ox 99 05/26/17 10:58 Intake & Output 05/25/17 05/26/17 05/26/17 18:59 06:59 18:59 Intake Total 895 1955.833 200 Output Total 1075 1100 Balance -180 855.833 200 Weight (lbs) 63.503 kg 63.503 kg Intake: Intake, IV Amount 100 1475.833 200 Albumin 25% 25gm/100mL 25 100 gm In 100 ml @ 50 mls/hr IV STAT ONE Rx#: [id number] Cefepime 2 gm In Sodium 100 Chloride 0.9% 100 ml @ 100 mls/hr IV Q12HR [facility] Rx#:[id number] Piperacillin Sodium/ 100 Tazobact 3.375 gm In Sodium Chloride 0.9% 50 ml @ 100 mls/hr IV Q6HR [facility] Rx#:[id number] Sodium Chloride 0.9% 1, 225.833 000 ml @ 50 mls/hr IV . Q20H [facility] Rx#:[id number] Tube Feeding 720 480 Other 75 Output: Urine 1075 1100 Other: # Bowel Movements 0 0 Active Medications: Current Medications Acetaminophen (Tylenol) 650 mg GT Q4HR PRN PRN Reason: Pain or Fever >101 Stop: 07/24/17 20:58 Last Admin: 05/26/17 04:17 Dose: 650 mg Albuterol/Ipratropium (Duoneb Neb) 3 ml HHN Q6HRT [facility] Stop: 05/31/17 01:40 Last Admin: 05/26/17 07:12 Dose: 3 ml Albuterol/Ipratropium (Duoneb Neb) 3 ml HHN Q2H PRN PRN Reason: Wheezing Stop: 07/24/17 01:41 Amiodarone HCl (Cordarone) 200 mg GT DAILY [facility] Stop: 07/25/17 08:59 Last Admin: 05/26/17 08:36 Dose: 200 mg Ascorbic Acid (Vitamin C) 500 mg GT DAILY [facility] Stop: 07/25/17 10:59 Chlorhexidine Gluconate (Peridex) 15 ml MM 0800,1999 [facility] Stop: 07/24/17 07:59 Last Admin: 05/26/17 08:40 Dose: 15 ml Gentamicin Sulfate (Gentak 0.3% Ophth Soln) 1 drop RIGHT EYE Q6H [facility] Stop: 07/25/17 01:14 Last Admin: 05/26/17 02:03 Dose: Not Given Hydralazine HCl (Apresoline) 10 mg GT Q6H PRN PRN Reason: SBP ABOVE 160 Stop: 07/24/17 20:58 Sodium Chloride (Nacl 0.9%) 1,000 mls @ 50 mls/hr IV .Q20H [facility] Stop: 07/24/17 21:24 Last Infusion: 05/26/17 06:16 Dose: 50 mls/hr Cefepime HCl 2 gm/ Sodium (Chloride) 100 mls @ 100 mls/hr IV Q12HR [facility] Stop: 07/25/17 08:59 Last Infusion: 05/26/17 10:34 Dose: Infused Norepinephrine Bitartrate 4 mg (/ Dextrose) 254 mls @ 0 mls/hr IV TITR PRN; Protocol; Titrate PRN Reason: BP MAINTENANCE (PER PROTOCOL) Stop: 07/25/17 07:35 Insulin Aspart (Novolog Insulin Sliding Scale) 0 units SUBQ BID PAO PRN Reason: Protocol Stop: 07/25/17 08:59 Last Admin: 05/26/17 08:39 Dose: Not Given Levetiracetam (Keppra) 500 mg PO BID [facility] Stop: 07/25/17 08:59 Last Admin: 05/26/17 08:36 Dose: 500 mg Magnesium Hydroxide (Milk Of Magnesia) 30 ml GT Q4H PRN PRN Reason: Constipation Stop: 07/24/17 20:58 Metoclopramide HCl (Reglan) 5 mg GT Q6H PRN PRN Reason: gerd Stop: 07/24/17 20:58 Metoprolol Tartrate (Lopressor) 12.5 mg GT DAILY [facility]O Stop: 07/25/17 08:59 Last Admin: 05/26/17 08:37 Dose: Not Given Miscellaneous (Vte Chemical Prophylaxis Screen/ Admission) 1 ea MC PRN PRN PRN Reason: PROTOCOL Stop: 07/24/17 11:25 Pantoprazole Sodium (Protonix) 40 mg GT DAILY [facility] Stop: 07/25/17 08:59 Last Admin: 05/26/17 08:36 Dose: 40 mg Potassium Chloride (Potassium Chloride Elixir) 20 meq GT X1 ONE Stop: 05/26/17 11:19 Prednisone (Prednisone) 5 mg GT DAILY [facility]O Stop: 07/25/17 08:59 - Procedures Procedures: Procedures Procedure Code Date BLOOD TRANSFUSION SERVICE 00486 05/17/17 RESPIRATORY VENTILATION, 24-96 CONSECUTIVE HOURS [id number] 05/24/17 TRANSFUSE NONAUT RED BLOOD CELLS IN PERIPH VEIN, PERC 93788X6 05/17/17 Nutritional Asmnt/Malnutr-PDOC - Dietary Evaluation Malnutrition Findings (Please click <Entered> for more info): Nutritional Asmnt/Malnutrition Start: 05/25/17 08: 25 Text: Status: Complete Freq: Document 05/25/17 08:25 [email or web address] (Rec: 05/25/17 08:50 [email or web address]) Nutritional Asmnt/Malnutrition Patient General Information Nutritional Screening Consult Diagnosis sepsis Pertinent Medical Hx/Surgical Hx HTn, COPD, dementia, dysphagia , ? DM Subjective Information Pt non verbal, +trach. TF running @ goal rate. Current Diet Order/ Nutrition Support Fibersource HN @ 60 ml/hr x 20 hours, flush 75 ml h2o q 3 hours Patient / S.O Not Indicated Pertinent Medications reviewed Pertinent Labs 05/25 BUN: 28, AST: 57, ALT: 53 , glucose: 68-83, BNP: 115 Nutritional Hx/Data Height 1.63 m Height (Calculated Centimeters) 162.6 Current Weight (lbs) 61.235 kg Weight (Calculated Kilograms) 61.2 Weight (Calculated Grams) 23487.0 [place] Body Weight 130 lbs % [place] Body Weight 104 Body Mass Index (BMI) 23.1 Recent Weight Change No Weight Status Approriate GI Symptoms GI Symptoms None Last BM 05/25 Difficult in: Swallowing Skin Integrity/Comment: +3 generalized edema, pressure ulcer to sacrum- awatiting wound assessment for staging Estimated Nutritional Goals BEE in Kcals: Using Current wt Calories/Kcals/Kg 25-30 Kcals Calculated 1867-7420 kcals Protein: Using Current wt Protein g/k-1.2 Protein Calculated 61-73 g Fluid: ml 1290-9247 mL (1 mL/kcal) Nutritional Problem 1. Problem Problem increased nutrient needs Etiology wounds Signs/Symptoms: pressure ulcer to sacrum Malnutrition Alert Is there a minimum of two criteria No selected? Query Text:Check all the applicable criteria. A minimum of two criteria are recommended for diagnosis of either severe or non-severe malnutrition. Malnutrition Related to Morbid Obesity Malnutrition related to morbid obesity No Intervention/Recommendation Comments 1. Continue Fibersource HN @ 60 ml/hr x 20 hours. Flush 75 mL q 3 hours. Provides 1200 mL volume, 1440 kcals, 65 g pro, 970 mL free h2o (1570 mL with flush). Meets 94% of kcal and 100% of protein needs. 2. Change to DM TF if blood sugars are elevated. At this time pt does not appear to be diabetic. 3. Will increase TF rate as needed after pressure ulcer is staged. Expected Outcomes/Goals Expected Outcomes/Goals receive >75% of needs monitor wt, labs, skin, TF tolerance
[2017-05-26] MEDS ORDERED: Probiotic Screen MC PRN (12:30)
[2017-05-26] MEDS: predniSONE 5 mg/5 mL UDC GT SCH (13:04)
[2017-05-26] MEDS ORDERED: Diltiazem 5 mg/mL 5mL Vial IVP STA (13:13)
[2017-05-26] MEDS: Multivitamin w/ Minerals Tab GT SCH (14:41)
[2017-05-27] MEDS: Gentamicin 0.3% Ophth Soln 5mL Bottle RIGHT EYE SCH ×3 (00:28→13:00)
--- NOTE | 2017-05-27 00:29 | Consultation ---
DATE OF CONSULTATION: 05/26/[address] Ochoa. HISTORY AND PHYSICAL: This 66-year-old male patient who was at subacute care. The patient was brought to the Emergency Room in view of severe anemia, hemoglobin 6.6 During the hospital stay, the patient developed hypotension and supraventricular tachycardia, hence Cardiology consult is requested. PAST MEDICAL HISTORY: Chronic respiratory failure, on ventilator with tracheostomy, congestive heart failure, diastolic dysfunction, hypertension, diabetes, coronary artery disease, diabetes mellitus type 2, COPD, peptic ulcer disease, GERD, seizure disorder, dysphagia with PEG placement, protein-calorie malnutrition, iron deficiency anemia. FAMILY HISTORY: Unremarkable. SOCIAL HISTORY: No history of smoking, alcohol abuse. ALLERGIES: No known allergies. PHYSICAL EXAMINATION: VITAL SIGNS: Blood pressure 90 systolic, on Levophed, pulse 150, respirations on ventilator. HEAD: Normocephalic. No lumps or bumps. EYES: Pupils equal, reactive to light. Fundi show AV nicking, sclerae white, conjunctivae pink. NECK: Carotid 2+. Normal upstroke. JVD flat. Thyroid not palpable. Lymph nodes not palpable. CHEST: Shows increased AP diameter. No kyphosis, scoliosis. LUNGS: Bilateral bronchovesicular breath sounds. Bilateral wheezing and rhonchi. HEART: PMI sixth intercostal space with lateral to midclavicular line. S1, S2, S3, S4, soft systolic murmur. ABDOMEN: Soft. Liver, spleen not palpable. No organomegaly. Bowel sounds active. The patient has a G-tube in place. NEUROLOGIC: No focal neurological deficit. EXTREMITIES: Peripheral pulses 1+, pedal edema 1+. CLINICAL IMPRESSION: Chronic respiratory failure, ventilator with tracheostomy, hypotension, septic shock, aspiration pneumonia, left lower lobe, supraventricular tachycardia, congestive heart failure, diastolic dysfunction, chronic hypertension, diabetes mellitus type 2, stable angina, chronic obstructive pulmonary disease, peptic ulcer disease, gastroesophageal reflux disease, seizure disorder, dysphagia with PEG placement, protein-calorie malnutrition, iron deficiency anemia. PLAN: We will continue present care. Start the patient on Cardizem as well as Levophed. The patient also did echocardiogram for left ventricular function. JOB# [id number]
[2017-05-27] MEDS: Albuterol/Ipratropium Neb 3 ML AERS HHN SCH ×3 (00:37→12:24)
[2017-05-27 05:13] LABS: FERRITIN 2455 ng/mL (30-400); IRON LC 74 ug/dL (38-169); TIBC (LC) 140 (250-450); UIBC 66 ug/dL (111-343)
[2017-05-27 06:01] LABS: % BASOPHILS 0.8 % (0.0-2.0); % EOSINOPHILS 2.6 % (0.0-5.0); % LYMPHOCYTES 9.3 % (20.0-50.0); % MONOCYTES 2.2 % (2.0-10.0); % NEUTROPHILS 85.1 % (40.0-80.0); BASOPHILE ABSOLUTE 0.1 Th/cumm (0-0.2); EOSINOPHILE ABSOLUTE 0.2 Th/cmm (0.1-0.4); LYMPHOCYTE ABSOLUTE 0.8 Th/cmm (1.5-3.0); MEAN CELL VOLUME 87.2 fl (80-99); MEAN CORPUSCULAR HEMOGLOBIN 30.2 pg (27.0-31.0); MEAN CORPUSCULAR HGB CONC 34.6 pg (28.0-36.0); MEAN PLATELET VOLUME 5.7 fl; MONOCYTE ABSOLUTE 0.2 Th/cmm (0.3-1.0); NEUTROPHILE ABSOLUTE 7.2 Th/cmm (1.8-8.0); PLATELET COUNT 183 Th/cmm (150-400); RED BLOOD COUNT 2.57 Mil/cmm (3.80-5.80); WHITE BLOOD COUNT 8.5 Th/cmm (4.8-10.8)
[2017-05-27 06:08] LABS: HEMATOCRIT 22.4 % (41.0-60); HEMOGLOBIN 7.7 gm/dL (12-16)
[2017-05-27 06:23] LABS: ALB/GLOB RATIO 0.9 (1.0-1.8); ALKALINE PHOSPHATASE 82 U/L (34-104); ANION GAP 9.8 (7.0-16.0); BILIRUBIN,TOTAL 0.6 mg/dL (0.3-1.0); BUN - UREA NITROGEN 28 mg/dL (7-25); CALCIUM SERUM 8.8 mg/dL (8.6-10.3); CHLORIDE 105 mEq/L (98-107); CREATININE - SERUM 1.5 mg/dL (0.7-1.3); GFR AFRICAN-AMERICAN > 60.0 ml/min (>90); GFR NON AFRICAN-AMERICAN 49.6 ml/min; GLUCOSE 105 mg/dL (70-105); POTASSIUM SERUM 3.8 mEq/L (3.5-5.1); SGOT 44 U/L (13-39); SGPT/ALT 41 U/L (7-52); SODIUM SERUM 135 mEq/L (136-145); TOTAL PROTEIN,SERUM 6.4 gm/dL (6.0-8.3)
[2017-05-27 06:47] LABS: % BASOPHILS 0.7 % (0.0-2.0); % EOSINOPHILS 2.7 % (0.0-5.0); % LYMPHOCYTES 10.7 % (20.0-50.0); % MONOCYTES 2.8 % (2.0-10.0); % NEUTROPHILS 83.1 % (40.0-80.0); BASOPHILE ABSOLUTE 0.1 Th/cumm (0-0.2); EOSINOPHILE ABSOLUTE 0.2 Th/cmm (0.1-0.4); HEMOGLOBIN 8.8 gm/dL (12-16); MEAN CELL VOLUME 86.8 fl (80-99); MEAN CORPUSCULAR HEMOGLOBIN 30.3 pg (27.0-31.0); MEAN CORPUSCULAR HGB CONC 34.9 pg (28.0-36.0); MEAN PLATELET VOLUME 5.8 fl; MONOCYTE ABSOLUTE 0.3 Th/cmm (0.3-1.0); NEUTROPHILE ABSOLUTE 7.5 Th/cmm (1.8-8.0); PLATELET COUNT 183 Th/cmm (150-400); RED BLOOD COUNT 2.91 Mil/cmm (3.80-5.80); RED CELL DISTRIBUTION WIDTH 17.3 % (11.5-20.0); WHITE BLOOD COUNT 9.1 Th/cmm (4.8-10.8)
[2017-05-27 06:53] LABS: ANION GAP 10.8 (7.0-16.0); BUN - UREA NITROGEN 28 mg/dL (7-25); CALCIUM SERUM 8.7 mg/dL (8.6-10.3); CHLORIDE 105 mEq/L (98-107); CREATININE - SERUM 1.5 mg/dL (0.7-1.3); GFR AFRICAN-AMERICAN > 60.0 ml/min (>90); GFR NON AFRICAN-AMERICAN 49.6 ml/min; GLUCOSE 107 mg/dL (70-105); POTASSIUM SERUM 3.8 mEq/L (3.5-5.1); SODIUM SERUM 135 mEq/L (136-145)
[2017-05-27 06:55] LABS: HEMATOCRIT 25.3 % (41.0-60)
--- NOTE | 2017-05-27 08:20 | Diagnostic Imaging Report ---
CHEST X-RAY: AP view INDICATION: Shortness of breath COMPARISON: 05/24/2017 FINDINGS: Support devices are stable. Mild congestive changes are noted with decreasing left effusion. Bibasilar infiltrates are noted. Heart size is normal. IMPRESSION: Mild congestive changes with decreasing small left effusion. Bibasilar infiltrates are noted.
[2017-05-27] MEDS: Chlorhexidine Gluconate 0.12% 15mL Mouthwash MM SCH (08:47)
[2017-05-27] MEDS: Cefepime 2 gm in 0.9% NS 100 mL IV SCH (08:48)
[2017-05-27] MEDS: Pantoprazole 40 mg/Packet GT SCH (08:50)
[2017-05-27] MEDS: predniSONE 5 mg/5 mL UDC GT SCH (08:50)
[2017-05-27] MEDS: Multivitamin w/ Minerals Tab GT SCH (08:51)
[2017-05-27] MEDS ORDERED: Lactobacillus Rhamnosus GG 15 Billion CFU CAP.SPRINK PO SCH (09:00)
[2017-05-27] MEDS: INSULIN ASPART SLIDING SCALE 100 UNITS/ML UNIT SUBQ SCH (09:14)
--- NOTE | 2017-05-27 09:21 | Infectious Disease Prog Note ---
Infectious Disease Subjective - Review of Systems Service Date: 05/27/17 Subjective: There is no new change, no fever. Infectious Disease Objective - Results Result Diagrams: 05/27/17 06:35 05/27/17 06:35 Recent Labs: Laboratory Last Values WBC 9.1 Th/cmm (4.8-10.8) 05/27/17 06:35 RBC 2.91 Mil/cmm (3.80-5.80) L 05/27/17 06:35 Hgb 8.8 gm/dL (12-16) L 05/27/17 06:35 Hct 25.3 % (41.0-60) L D 05/27/17 06:35 MCV 86.8 fl (80-99) 05/27/17 06:35 MCH 30.3 pg (27.0-31.0) 05/27/17 06:35 MCHC Differential 34.9 pg (28.0-36.0) 05/27/17 06:35 RDW 17.3 % (11.5-20.0) 05/27/17 06:35 Plt Count 183 Th/cmm (150-400) 05/27/17 06:35 MPV 5.8 fl 05/27/17 06:35 Neutrophils % 83.1 % (40.0-80.0) H 05/27/17 06:35 Band Neutrophils % 11 % (0-10) H 05/26/17 07:55 Lymphocytes % 10.7 % (20.0-50.0) L 05/27/17 06:35 Monocytes % 2.8 % (2.0-10.0) 05/27/17 06:35 Eosinophils % 2.7 % (0.0-5.0) 05/27/17 06:35 Basophils % 0.7 % (0.0-2.0) 05/27/17 06:35 Neutrophils (Manual) 80 % (40-80) 05/26/17 07:55 Lymphocytes 2 % (20-50) L 05/26/17 07:55 Monocytes 3 % (2-10) 05/26/17 07:55 Eosinophils 4 % (0-5) 05/26/17 07:55 Platelet Estimate ADEQUATE (NORMAL) 05/26/17 07:55 Anisocytosis 1+ 05/26/17 07:55 Specimen Source ARTERIAL 05/24/17 23:58 Sample Site Right Radial 05/24/17 23:58 pH 7.52 (7.35-7.45) H 05/24/17 23:58 pCO2 43.0 mmHg (35.0-45.0) 02 23:58 pO2 139.0 mmHg (80.0-100.0) H 05/24/17 23:58 HCO3 33.6 mEq/L (20.0-26.0) H 05/24/17 23:58 Base Excess 11.0 mEq/L (-3.0-3.0) H 05/24/17 23:58 O2 Saturation 99.0 % (92.0-100.0) 05/24/17 23:58 Nader Test Y 05/24/17 23:58 Vent Rate 14 05/24/17 23:58 Inspired O2 35 05/24/17 23:58 Tidal Volume 450 05/24/17 23:58 PEEP 5 05/24/17 23:58 Pressure (ins/psv/peep) N/A 05/24/17 23:58 Critical Value O.ESTRELLA 05/24/17 23:58 Sodium 135 mEq/L (136-145) L 05/27/17 06:35 Potassium 3.8 mEq/L (3.5-5.1) 05/27/17 06:35 Chloride 105 mEq/L (98-107) 05/27/17 06:35 Carbon Dioxide 23.0 mEq/L (21.0-31.0) 05/27/17 06:35 Anion Gap 10.8 (7.0-16.0) 05/27/17 06:35 BUN 28 mg/dL (7-25) H 05/27/17 06:35 Creatinine 1.5 mg/dL (0.7-1.3) H 05/27/17 06:35 Est GFR ( Amer) > 60.0 ml/min (>90) 05/27/17 06:35 Est GFR (Non-Af Amer) 49.6 ml/min 05/27/17 06:35 BUN/Creatinine Ratio 18.7 05/27/17 06:35 Glucose 107 mg/dL (70-105) H 05/27/17 06:35 POC Glucose 106 MG/DL (70 - 105) H 05/27/17 04:47 Whole Bld Lactic Acid 1.43 mmol/L (0.60-1.99) 05/24/17 22:30 Calcium 8.7 mg/dL (8.6-10.3) 05/27/17 06:35 Magnesium 1.8 mg/dL (1.9-2.7) L 05/24/17 22:30 Iron 74 ug/dL (38-169) 05/24/17 22:30 TIBC 140 (250-450) L 05/24/17 22:30 Iron Saturation 53 (15-55) 05/24/17 22:30 Unsaturated IBC 66 ug/dL (111-343) L 05/24/17 22:30 Ferritin 2455 ng/mL (30-400) H 05/24/17 22:30 Total Bilirubin 0.6 mg/dL (0.3-1.0) 05/27/17 05:45 AST 44 U/L (13-39) H 05/27/17 05:45 ALT 41 U/L (7-52) 05/27/17 05:45 Alkaline Phosphatase 82 U/L (34-104) 05/27/17 05:45 Troponin I 0.01 ng/mL (0.01-0.05) 05/24/17 22:30 C-Reactive Protein 3.9 mg/dL (0.0-0.9) H 05/24/17 22:30 B-Natriuretic Peptide 115.0 pg/mL (5.0-100.0) H 05/24/17 22:30 Total Protein 6.4 gm/dL (6.0-8.3) 05/27/17 05:45 Albumin 3.0 gm/dL (4.2-5.5) L 05/27/17 05:45 Globulin 3.4 gm/dL 05/27/17 05:45 Albumin/Globulin Ratio 0.9 (1.0-1.8) L 05/27/17 05:45 Urine Source [place] 05/25/17 00:00 Urine Color YELLOW 05/25/17 00:00 Urine Clarity CLEAR (CLEAR) 05/25/17 00:00 Urine pH 7.5 (4.6 - 8.0) 05/25/17 00:00 Ur Specific [place] 1.010 (1.005-1.030) 05/25/17 00:00 Urine Protein NEGATIVE mg/dL (NEGATIVE) 05/25/17 00:00 Urine Glucose (UA) NEGATIVE mg/dL (NEGATIVE) 05/25/17 00:00 Urine Ketones NEGATIVE mg/dL (NEGATIVE) 05/25/17 00:00 Urine Blood SMALL (NEGATIVE) H 05/25/17 00:00 Urine Nitrate NEGATIVE (NEGATIVE) 05/25/17 00:00 Urine Bilirubin NEGATIVE (NEGATIVE) 05/25/17 00:00 Urine Urobilinogen 0.2 E.U./dL (0.2 - 1.0) 05/25/17 00:00 Ur Leukocyte Esterase NEGATIVE (NEGATIVE) 05/25/17 00:00 Urine RBC 0-2 /hpf (0-5) H 05/25/17 00:00 Urine WBC 2-5 /hpf (0-5) 05/25/17 00:00 Ur Epithelial Cells OCCASIONAL /lpf (FEW) 05/25/17 00:00 Urine Bacteria OCCASIONAL /hpf (NONE SEEN) 05/25/17 00:00 Vancomycin Trough 9.5 ug/mL (10-20) L 05/27/17 05:45 Blood Type O POSITIVE 05/25/17 04:15 Antibody Screen NEGATIVE 05/25/17 04:15 - Physical Exam Vitals and I&O: Vital Signs Temp 97.4 F 05/27/17 07:59 Pulse 113 05/27/17 08:51 Resp 16 05/27/17 07:59 BP 122/67 05/27/17 08:51 Pulse Ox 100 05/27/17 08:00 Intake & Output 05/26/17 05/27/17 05/27/17 18:59 06:59 18:59 Intake Total 1524.604 100 Output Total 600 1000 Balance 924.604 -900 Weight (lbs) 62.142 kg 65.091 kg Intake: Intake, IV Amount 824.604 100 Albumin 25% 25gm/100mL 25 100 gm In 100 ml @ 50 mls/hr IV STAT ONE Rx#: [id number] Cefepime 2 gm In Sodium 100 100 Chloride 0.9% 100 ml @ 100 mls/hr IV Q12HR [facility] Rx#:[id number] Diltiazem 125 mg In 30.667 Dextrose 5% 100 ml @ 10 MG/HR 10 mls/hr IV TITR [facility] Rx#:[id number] Norepinephrine 4 mg In 64.77 Dextrose 5% 250 ml @ Titrate IV TITR PRN Rx#: [id number] Sodium Chloride 0.9% 1, 529.167 000 ml @ 50 mls/hr IV . Q20H COUNT INCLUDES [facility] Rx#:[id number] Tube Feeding 600 Albumin 100 Output: Urine 600 1000 Other: # Bowel Movements 0 Active Medications: Current Medications Acetaminophen (Tylenol) 650 mg GT Q4HR PRN PRN Reason: Pain or Fever >101 Stop: 07/24/17 20:58 Last Admin: 05/26/17 13:02 Dose: 650 mg Albuterol/Ipratropium (Duoneb Neb) 3 ml HHN Q6HRT COUNT INCLUDES THE [facility] Stop: 05/31/17 01:40 Last Admin: 05/27/17 07:15 Dose: 3 ml Albuterol/Ipratropium (Duoneb Neb) 3 ml HHN Q2H PRN PRN Reason: Wheezing Stop: 07/24/17 01:41 Amiodarone HCl (Cordarone) 200 mg GT DAILY COUNT [facility]CLUDES [facility] Stop: 07/25/17 08:59 Last Admin: 05/27/17 08:51 Dose: 200 mg Ascorbic Acid (Vitamin C) 500 mg GT DAILY COUNT INCLUDES [facility] Stop: 07/25/17 10:59 Last Admin: 05/27/17 08:51 Dose: 500 mg Chlorhexidine Gluconate (Peridex) 15 ml MM 0800,2000 COUNT INCLUDES [facility] Stop: 07/24/17 07:59 Last Admin: 05/27/17 08:47 Dose: 15 ml Gentamicin Sulfate (Gentak 0.3% [facility]) 1 drop RIGHT EYE Q6H COUNT INCLUDES THE [facility] Stop: 07/25/17 01:14 Last Admin: 05/27/17 07:40 Dose: 1 drop Hydralazine HCl (Apresoline) 10 mg GT Q6H PRN PRN Reason: SBP ABOVE 160 Stop: 07/24/17 20:58 Last Admin: 05/26/17 13:19 Dose: 10 mg Sodium Chloride (Nacl 0.9%) 1,000 mls @ 50 mls/hr IV .Q20H COUNT INCLUDES [facility] Stop: 07/24/17 21:24 Last Admin: 05/26/17 16:51 Dose: 50 mls/hr Cefepime HCl 2 gm/ Sodium (Chloride) 100 mls @ 100 mls/hr IV Q12HR [facility] Stop: 07/25/17 08:59 Last Admin: 05/27/17 08:48 Dose: 100 mls/hr Norepinephrine Bitartrate 4 mg (/ Dextrose) 254 mls @ 0 mls/hr IV TITR PRN; Protocol; Titrate PRN Reason: BP MAINTENANCE (PER PROTOCOL) Stop: 07/25/17 07:35 Last Titration: 05/26/17 12:00 Dose: 0 mcg/min, 0 mls/hr Diltiazem HCl 125 mg/ Dextrose 125 mls @ 10 mls/hr IV TITR PAO; 10 MG/HR PRN Reason: Protocol Stop: 07/25/17 13:14 Last Titration: 05/26/17 17:26 Dose: 0 mg/hr, 0 mls/hr Insulin Aspart (Novolog Insulin Sliding Scale) 0 units SUBQ BID [facility] PRN Reason: Protocol Stop: 07/25/17 08:59 Last Admin: 05/26/17 16:40 Dose: 2 units Lactobacillus Rhamnosus (Culturelle 15b) 1 each PO DAILY COUNT [facility]CLUDES [facility] Stop: 07/26/17 08:59 Levetiracetam (Keppra) 500 mg PO BID [facility] Stop: 07/25/17 08:59 Last Admin: 05/27/17 08:51 Dose: 500 mg Magnesium Hydroxide (Milk Of Magnesia) 30 ml GT Q4H PRN PRN Reason: Constipation Stop: 07/24/17 20:58 Last Admin: 05/27/17 08:48 Dose: 30 ml Metoclopramide HCl (Reglan) 5 mg GT Q6H PRN PRN Reason: gerd Stop: 07/24/17 20:58 Metoprolol Tartrate (Lopressor) 12.5 mg GT DAILY COUNT INCLUDES [facility] Stop: 07/25/17 08:59 Last Admin: 05/27/17 08:51 Dose: 12.5 mg Miscellaneous (Vte Chemical Prophylaxis Screen/ Admission) 1 ea MC PRN PRN PRN Reason: PROTOCOL Stop: 07/24/17 11:25 Miscellaneous (Probiotic Screen) 1 ea MC PRN PRN PRN Reason: PROTOCOL Stop: 07/25/17 12:29 Pantoprazole Sodium (Protonix) 40 mg GT DAILY COUNT INCLUDES [facility] Stop: 07/25/17 08:59 Last Admin: 05/27/17 08:50 Dose: 40 mg Prednisone (Prednisone) 5 mg GT DAILY [facility] Stop: 07/25/17 08:59 Last Admin: 05/27/17 08:50 Dose: 5 mg General: no acute distress, well developed, well nourished HEENT: atraumatic, normocephalic, other (right eue erythema less.) Neck: supple, no thyromegaly, no lymphadenopathy Cardiovascular: S1S2, regular Lungs: clear to auscultation bilaterally, clear to percussion Abdomen: soft, no tender, no distended, no rebound Extremities: no cyanosis, no clubbing, no edema Neurological: awake, alert, oriented Skin: intact - Procedures Procedures: Procedures Procedure Code Date BLOOD TRANSFUSION SERVICE 06232 05/17/17 RESPIRATORY VENTILATION, 24-96 CONSECUTIVE HOURS [id number] 05/24/17 TRANSFUSE NONAUT RED BLOOD CELLS IN PERIPH VEIN, PERC 18020Q4 05/17/17 Infectious Disease Assmt/Plan - Assessment Assessment: Right eye conjuntivitis. LLL pneumonia. - Plan Plan: Will continue same treatment. Abx fir 7days. ok to dc t snf. Nutritional Asmnt/Malnutr-PDOC - Dietary Evaluation Malnutrition Findings (Please click <Entered> for more info): Nutritional Asmnt/Malnutrition Start: 05/25/17 08: 25 Text: Status: Complete Freq: Document 05/25/17 08:25 [email or web address] (Rec: 05/25/17 08:50 [email or web address] [email or web address] Nutritional Asmnt/Malnutrition Patient General Information Nutritional Screening Consult Diagnosis sepsis Pertinent Medical Hx/Surgical Hx HTn, COPD, dementia, dysphagia , ? DM Subjective Information Pt non verbal, +trach. TF running @ goal rate. Current Diet Order/ Nutrition Support Fibersource HN @ 60 ml/hr x 20 hours, flush 75 ml h2o q 3 hours Patient / S.O Not Indicated Pertinent Medications reviewed Pertinent Labs 05/25 BUN: 28, AST: 57, ALT: 53 , glucose: 68-83, BNP: 115 Nutritional Hx/Data Height 1.63 m Height (Calculated Centimeters) 162.6 Current Weight (lbs) 61.235 kg Weight (Calculated Kilograms) 61.2 Weight (Calculated Grams) 62701.0 Glenn Body Weight 130 lbs % Glenn Body Weight 104 Body Mass Index (BMI) 23.1 Recent Weight Change No Weight Status Approriate GI Symptoms GI Symptoms None Last BM 05/25 Difficult in: Swallowing Skin Integrity/Comment: +3 generalized edema, pressure ulcer to sacrum- awatiting wound assessment for staging Estimated Nutritional Goals BEE in Kcals: Using Current wt Calories/Kcals/Kg 25-30 Kcals Calculated 2515-3295 kcals Protein: Using Current wt Protein g/k-1.2 Protein Calculated 61-73 g Fluid: ml 0968-9306 mL (1 mL/kcal) Nutritional Problem 1. Problem Problem increased nutrient needs Etiology wounds Signs/Symptoms: pressure ulcer to sacrum Malnutrition Alert Is there a minimum of two criteria No selected? Query Text:Check all the applicable criteria. A minimum of two criteria are recommended for diagnosis of either severe or non-severe malnutrition. Malnutrition Related to Morbid Obesity Malnutrition related to morbid obesity No Intervention/Recommendation Comments 1. Continue Fibersource HN @ 60 ml/hr x 20 hours. Flush 75 mL q 3 hours. Provides 1200 mL volume, 1440 kcals, 65 g pro, 970 mL free h2o (1570 mL with flush). Meets 94% of kcal and 100% of protein needs. 2. Change to DM TF if blood sugars are elevated. At this time pt does not appear to be diabetic. 3. Will increase TF rate as needed after pressure ulcer is staged. Expected Outcomes/Goals Expected Outcomes/Goals receive >75% of needs monitor wt, labs, skin, TF tolerance
[2017-05-27] MEDS ORDERED: Cefepime 2 GM in Sodium Chloride 0.9% 100 ML IV SCH ×2 (10:45→21:00)
--- NOTE | 2017-05-27 12:51 | Internal Medicine Prog Note ---
Internal Medicine Subjective - Subjective Service Date: 05/27/17 Patient seen and examined:: with staff Patient is:: awake, non-verbal Per staff patient has:: tolerating meds Internal Medicine Objective - Results Result Diagrams: 05/27/17 06:35 05/27/17 06:35 Recent Labs: Laboratory Last Values WBC 9.1 Th/cmm (4.8-10.8) 05/27/17 06:35 RBC 2.91 Mil/cmm (3.80-5.80) L 05/27/17 06:35 Hgb 8.8 gm/dL (12-16) L 05/27/17 06:35 Hct 25.3 % (41.0-60) L D 05/27/17 06:35 MCV 86.8 fl (80-99) 05/27/17 06:35 MCH 30.3 pg (27.0-31.0) 05/27/17 06:35 MCHC Differential 34.9 pg (28.0-36.0) 05/27/17 06:35 RDW 17.3 % (11.5-20.0) 05/27/17 06:35 Plt Count 183 Th/cmm (150-400) 05/27/17 06:35 MPV 5.8 fl 05/27/17 06:35 Neutrophils % 83.1 % (40.0-80.0) H 05/27/17 06:35 Band Neutrophils % 11 % (0-10) H 05/26/17 07:55 Lymphocytes % 10.7 % (20.0-50.0) L 05/27/17 06:35 Monocytes % 2.8 % (2.0-10.0) 05/27/17 06:35 Eosinophils % 2.7 % (0.0-5.0) 05/27/17 06:35 Basophils % 0.7 % (0.0-2.0) 05/27/17 06:35 Neutrophils (Manual) 80 % (40-80) 05/26/17 07:55 Lymphocytes 2 % (20-50) L 05/26/17 07:55 Monocytes 3 % (2-10) 05/26/17 07:55 Eosinophils 4 % (0-5) 05/26/17 07:55 Platelet Estimate ADEQUATE (NORMAL) 02/22/18 07:55 Anisocytosis 1+ 05/26/17 07:55 Specimen Source ARTERIAL 05/24/17 23:58 Sample Site Right Radial 05/24/17 23:58 pH 7.52 (7.35-7.45) H 05/24/17 23:58 pCO2 43.0 mmHg (35.0-45.0) 05/24/17 23:58 pO2 139.0 mmHg (80.0-100.0) H 05/24/17 23:58 HCO3 33.6 mEq/L (20.0-26.0) H 05/24/17 23:58 Base Excess 11.0 mEq/L (-3.0-3.0) H 05/24/17 23:58 O2 Saturation 99.0 % (92.0-100.0) 05/24/17 23:58 Nader Test Y 05/24/17 23:58 Vent Rate 14 05/24/17 23:58 Inspired O2 35 05/24/17 23:58 Tidal Volume 450 05/24/17 23:58 PEEP 5 05/24/17 23:58 Pressure (ins/psv/peep) N/A 05/24/17 23:58 Critical Value O.ESTRELLA 05/24/17 23:58 Sodium 135 mEq/L (136-145) L 05/27/17 06:35 Potassium 3.8 mEq/L (3.5-5.1) 05/27/17 06:35 Chloride 105 mEq/L (98-107) 05/27/17 06:35 Carbon Dioxide 23.0 mEq/L (21.0-31.0) 05/27/17 06:35 Anion Gap 10.8 (7.0-16.0) 05/27/17 06:35 BUN 28 mg/dL (7-25) H 05/27/17 06:35 Creatinine 1.5 mg/dL (0.7-1.3) H 05/27/17 06:35 Est GFR ( Amer) > 60.0 ml/min (>90) 05/27/17 06:35 Est GFR (Non-Af Amer) 49.6 ml/min 05/27/17 06:35 BUN/Creatinine Ratio 18.7 05/27/17 06:35 Glucose 107 mg/dL (70-105) H 05/27/17 06:35 POC Glucose 135 MG/DL (70 - 105) H 05/27/17 09:13 Whole Bld Lactic Acid 1.43 mmol/L (0.60-1.99) 05/24/17 22:30 Calcium 8.7 mg/dL (8.6-10.3) 05/27/17 06:35 Magnesium 1.8 mg/dL (1.9-2.7) L 05/24/17 22:30 Iron 74 ug/dL (38-169) 05/24/17 22:30 TIBC 140 (250-450) L 05/24/17 22:30 Iron Saturation 53 (15-55) 05/24/17 22:30 Unsaturated IBC 66 ug/dL (111-343) L 05/24/17 22:30 Ferritin 2455 ng/mL (30-400) H 05/24/17 22:30 Total Bilirubin 0.6 mg/dL (0.3-1.0) 05/27/17 05:45 AST 44 U/L (13-39) H 05/27/17 05:45 ALT 41 U/L (7-52) 05/27/17 05:45 Alkaline Phosphatase 82 U/L (34-104) 05/27/17 05:45 Troponin I 0.01 ng/mL (0.01-0.05) 05/24/17 22:30 C-Reactive Protein 3.9 mg/dL (0.0-0.9) H 05/24/17 22:30 B-Natriuretic Peptide 115.0 pg/mL (5.0-100.0) H 05/24/17 22:30 Total Protein 6.4 gm/dL (6.0-8.3) 05/27/17 05:45 Albumin 3.0 gm/dL (4.2-5.5) L 05/27/17 05:45 Globulin 3.4 gm/dL 05/27/17 05:45 Albumin/Globulin Ratio 0.9 (1.0-1.8) L 05/27/17 05:45 Urine Source [place] 05/25/17 00:00 Urine Color YELLOW 05/25/17 00:00 Urine Clarity CLEAR (CLEAR) 05/25/17 00:00 Urine pH 7.5 (4.6 - 8.0) 05/25/17 00:00 Ur Specific [place] 1.010 (1.005-1.030) 05/25/17 00:00 Urine Protein NEGATIVE mg/dL (NEGATIVE) 05/25/17 00:00 Urine Glucose (UA) NEGATIVE mg/dL (NEGATIVE) 05/25/17 00:00 Urine Ketones NEGATIVE mg/dL (NEGATIVE) 05/25/17 00:00 Urine Blood SMALL (NEGATIVE) H 05/25/17 00:00 Urine Nitrate NEGATIVE (NEGATIVE) 05/25/17 00:00 Urine Bilirubin NEGATIVE (NEGATIVE) 05/25/17 00:00 Urine Urobilinogen 0.2 E.U./dL (0.2 - 1.0) 05/25/17 00:00 Ur Leukocyte Esterase NEGATIVE (NEGATIVE) 05/25/17 00:00 Urine RBC 0-2 /hpf (0-5) H 05/25/17 00:00 Urine WBC 2-5 /hpf (0-5) 05/25/17 00:00 Ur Epithelial Cells OCCASIONAL /lpf (FEW) 05/25/17 00:00 Urine Bacteria OCCASIONAL /hpf (NONE SEEN) 05/25/17 00:00 Vancomycin Trough 9.5 ug/mL (10-20) L 05/27/17 05:45 Blood Type O POSITIVE 05/25/17 04:15 Antibody Screen NEGATIVE 05/25/17 04:15 - Physical Exam Vitals and I&O: Vital Signs Temp 97.4 F 05/27/17 12:13 Pulse 97 05/27/17 12:24 Resp 17 05/27/17 12:13 BP 114/61 05/27/17 12:13 Pulse Ox 100 05/27/17 12:24 Intake & Output 05/26/17 05/27/17 05/27/17 18:59 06:59 18:59 Intake Total 1524.604 100 Output Total 600 1000 Balance 924.604 -900 Weight (lbs) 137 lb 143 lb 8 oz Intake: Intake, IV Amount 824.604 100 Albumin 25% 25gm/100mL 25 100 gm In 100 ml @ 50 mls/hr IV STAT ONE Rx#: [id number] Cefepime 2 gm In Sodium 100 100 Chloride 0.9% 100 ml @ 100 mls/hr IV Q12HR [facility] Rx#:[id number] Diltiazem 125 mg In 30.667 Dextrose 5% 100 ml @ 10 MG/HR 10 mls/hr IV TITR [facility] Rx#:[id number] Norepinephrine 4 mg In 64.77 Dextrose 5% 250 ml @ Titrate IV TITR PRN Rx#: [id number] Sodium Chloride 0.9% 1, 529.167 000 ml @ 50 mls/hr IV . Q20H [facility] Rx#:[id number] Tube Feeding 600 Albumin 100 Output: Urine 600 1000 Other: # Bowel Movements 0 Active Medications: Current Medications Acetaminophen (Tylenol) 650 mg GT Q4HR PRN PRN Reason: Pain or Fever >101 Stop: 07/24/17 20:58 Last Admin: 05/26/17 13:02 Dose: 650 mg Albuterol/Ipratropium (Duoneb Neb) 3 ml HHN Q6HRT [facility] Stop: 05/31/17 01:40 Last Admin: 05/27/17 12:24 Dose: 3 ml Albuterol/Ipratropium (Duoneb Neb) 3 ml HHN Q2H PRN PRN Reason: Wheezing Stop: 07/24/17 01:41 Amiodarone HCl (Cordarone) 200 mg GT DAILY [facility] Stop: 07/25/17 08:59 Last Admin: 05/27/17 08:51 Dose: 200 mg Ascorbic Acid (Vitamin C) 500 mg GT DAILY [facility] Stop: 07/25/17 10:59 Last Admin: 05/27/17 08:51 Dose: 500 mg Chlorhexidine Gluconate (Peridex) 15 ml MM 0800,2000 [facility] Stop: 07/24/17 07:59 Last Admin: 05/27/17 08:47 Dose: 15 ml Gentamicin Sulfate (Gentak 0.3% [facility]) 1 drop RIGHT EYE Q6H [facility] Stop: 07/25/17 01:14 Last Admin: 05/27/17 07:40 Dose: 1 drop Hydralazine HCl (Apresoline) 10 mg GT Q6H PRN PRN Reason: SBP ABOVE 160 Stop: 07/24/17 20:58 Last Admin: 05/26/17 13:19 Dose: 10 mg Sodium Chloride (Nacl 0.9%) 1,000 mls @ 50 mls/hr IV .Q20H [facility] Stop: 07/24/17 21:24 Last Admin: 05/26/17 16:51 Dose: 50 mls/hr Norepinephrine Bitartrate 4 mg (/ Dextrose) 254 mls @ 0 mls/hr IV TITR PRN; Protocol; Titrate PRN Reason: BP MAINTENANCE (PER PROTOCOL) Stop: 07/25/17 07:35 Last Titration: 05/26/17 12:00 Dose: 0 mcg/min, 0 mls/hr Diltiazem HCl 125 mg/ Dextrose 125 mls @ 10 mls/hr IV TITR [facility]; 10 MG/HR PRN Reason: Protocol Stop: 07/25/17 13:14 Last Titration: 05/26/17 17:26 Dose: 0 mg/hr, 0 mls/hr Cefepime HCl 2 gm/ Dextrose 50 mls @ 100 mls/hr IV Q24H [facility] Stop: 07/27/17 08:59 Insulin Aspart (Novolog Insulin Sliding Scale) 0 units SUBQ BID [facility] PRN Reason: Protocol Stop: 07/25/17 08:59 Last Admin: 05/27/17 09:14 Dose: Not Given Lactobacillus Rhamnosus (Culturelle 15b) 1 each PO DAILY [facility] Stop: 07/26/17 08:59 Levetiracetam (Keppra) 500 mg PO BID [facility] Stop: 07/25/17 08:59 Last Admin: 05/27/17 08:51 Dose: 500 mg Magnesium Hydroxide (Milk Of Magnesia) 30 ml GT Q4H PRN PRN Reason: Constipation Stop: 07/24/17 20:58 Last Admin: 05/27/17 08:48 Dose: 30 ml Metoclopramide HCl (Reglan) 5 mg GT Q6H PRN PRN Reason: gerd Stop: 07/24/17 20:58 Metoprolol Tartrate (Lopressor) 12.5 mg GT DAILY [facility] Stop: 07/25/17 08:59 Last Admin: 05/27/17 08:51 Dose: 12.5 mg Miscellaneous (Vte Chemical Prophylaxis Screen/ Admission) 1 ea MC PRN PRN PRN Reason: PROTOCOL Stop: 07/24/17 11:25 Miscellaneous (Probiotic Screen) 1 ea MC PRN PRN PRN Reason: PROTOCOL Stop: 07/25/17 12:29 Pantoprazole Sodium (Protonix) 40 mg GT DAILY [facility] Stop: 07/25/17 08:59 Last Admin: 05/27/17 08:50 Dose: 40 mg Prednisone (Prednisone) 5 mg GT DAILY [facility] Stop: 07/25/17 08:59 Last Admin: 05/27/17 08:50 Dose: 5 mg General: weak HEENT: NC/AT, PERRLA Lungs: CTAB Cardiovascular: RRR, Normal S1, Normal S2, without murmur Abdomen: soft, non-tender, non-distended, positive bowel sound Neurological: unable to follow command - Procedures Procedures: Procedures Procedure Code Date BLOOD TRANSFUSION SERVICE 76129 05/17/17 RESPIRATORY VENTILATION, 24-96 CONSECUTIVE HOURS [id number] 05/24/17 TRANSFUSE NONAUT RED BLOOD CELLS IN PERIPH VEIN, PERC [id number] 05/17/17 Internal Medicine Assmt/Plan - Assessment Assessment: acute uti chronic respiratory failure vdrf htn anemia hx esbl sputum - Plan Plan: vent support ivabx monitor h/h continue current orders Nutritional Asmnt/Malnutr-PDOC - Dietary Evaluation Malnutrition Findings (Please click <Entered> for more info): Nutritional Asmnt/Malnutrition Start: 05/25/17 08: 25 Text: Status: Complete Freq: Document 05/25/17 08:25 [email or web address] (Rec: 05/25/17 08:50 [email or web address]) Nutritional Asmnt/Malnutrition Patient General Information Nutritional Screening Consult Diagnosis sepsis Pertinent Medical Hx/Surgical Hx HTn, COPD, dementia, dysphagia , ? DM Subjective Information Pt non verbal, +trach. TF running @ goal rate. Current Diet Order/ Nutrition Support Fibersource HN @ 60 ml/hr x 20 hours, flush 75 ml h2o q 3 hours Patient / S.O Not Indicated Pertinent Medications reviewed Pertinent Labs 05/25 BUN: 28, AST: 57, ALT: 53 , glucose: 68-83, BNP: 115 Nutritional Hx/Data Height 5 ft 4 in Height (Calculated Centimeters) 162.6 Current Weight (lbs) 135 lb Weight (Calculated Kilograms) 61.2 Weight (Calculated Grams) 71193.0 [place] Body Weight 130 lbs % [place] Body Weight 104 Body Mass Index (BMI) 23.1 Recent Weight Change No Weight Status Approriate GI Symptoms GI Symptoms None Last BM 05/25 Difficult in: Swallowing Skin Integrity/Comment: +3 generalized edema, pressure ulcer to sacrum- awatiting wound assessment for staging Estimated Nutritional Goals BEE in Kcals: Using Current wt Calories/Kcals/Kg 25-30 Kcals Calculated 5916-0975 kcals Protein: Using Current wt Protein g/k-1.2 Protein Calculated 61-73 g Fluid: ml 7585-3657 mL (1 mL/kcal) Nutritional Problem 1. Problem Problem increased nutrient needs Etiology wounds Signs/Symptoms: pressure ulcer to sacrum Malnutrition Alert Is there a minimum of two criteria No selected? Query Text:Check all the applicable criteria. A minimum of two criteria are recommended for diagnosis of either severe or non-severe malnutrition. Malnutrition Related to Morbid Obesity Malnutrition related to morbid obesity No Intervention/Recommendation Comments 1. Continue Fibersource HN @ 60 ml/hr x 20 hours. Flush 75 mL q 3 hours. Provides 1200 mL volume, 1440 kcals, 65 g pro, 970 mL free h2o (1570 mL with flush). Meets 94% of kcal and 100% of protein needs. 2. Change to DM TF if blood sugars are elevated. At this time pt does not appear to be diabetic. 3. Will increase TF rate as needed after pressure ulcer is staged. Expected Outcomes/Goals Expected Outcomes/Goals receive >75% of needs monitor wt, labs, skin, TF tolerance
[2017-05-27] MEDS: Sodium Chloride 0.9% 1,000 ML IV SCH (14:11)
--- NOTE | 2017-05-28 20:26 | History & Physical ---
ADMIT DATE: 05/25/2017 HISTORY OF PRESENT ILLNESS: This is a patient well known to me. The patient is a trach and vent patient. Apparently, the hemoglobin was 6.6 and the patient came to the ER and was admitted for severe anemia. REVIEW OF SYSTEMS: Difficult to obtain any review of systems. PAST MEDICAL HISTORY: The patient has a prior history of chronic respiratory failure, COPD, emphysema, bronchitis and lung infection and ____. He has MRSA. He also has a Yates catheter and the patient was admitted. PHYSICAL EXAMINATION: GENERAL: The patient is alert, awake, but he is trach and vent patient. VITAL SIGNS: Stable. LUNGS: Bilateral ____ rales. CARDIOVASCULAR SYSTEM: S1 and S2 heard. ABDOMEN: Soft. Bowel sounds are heard. EXTREMITIES: Revealed no edema. DIAGNOSES: Severe anemia, rule out gastrointestinal bleeding, status post trach, status post PEG, rule out sepsis, history of prior MRSA of the sputum. The patient has been started on IV antibiotics and have a GI consult and Infectious Disease consult as well as a Pulmonary Consult and I will follow the patient. Again, rule out sepsis secondary to lung infection and severe anemia. JOB# [id number]
--- NOTE | 2017-06-02 22:50 | Discharge Summary ---
DATE OF DISCHARGE: 05/27/2017 The patient was admitted to [facility] on 05/24/2017, discharged on 05/27/2017 and refused trach and vent. The patient found to have severe anemia, was admitted to rule out GI bleeding and history of sepsis and the patient was treated with IV antibiotics for the sepsis and Pulmonary consult was sought. ID consult was sought. The patient was given blood transfusion. The patient gradually improved with GI consultation ____ no surgery, etc. The patient was in stable condition. On 05/27/2017, the patient was discharged back to [place] where I will follow the patient with final diagnoses of anemia improved, severe sepsis, improving, history of status post trach, status post PEG and history of hypoxic brain damage ____. CONDITION ON DISCHARGE: Stable. JOB# [id number]
== END 2017-05-27 13:30 | disposition home or self-care (01) | DRG 871 ==
LOC: ER 21:59 → ICU 23:45
PROVIDERS: ADMIT Internal Medicine; ATTEND Internal Medicine
PROC: 5A1945Z Respiratory Ventilation, 24-96 Consecutive Hours (ICD-10-PCS; principal; 2017-05-25)
DX: A41.9 Sepsis, unspecified organism (principal); J96.20 Acute and chronic respiratory failure, unspecified whether with hypoxia or hypercapnia; R65.21 Severe sepsis with septic shock; J69.0 Pneumonitis due to inhalation of food and vomit; Z99.11 Dependence on respirator [ventilator] status; G93.40 Encephalopathy, unspecified; E46 Unspecified protein-calorie malnutrition; Z93.0 Tracheostomy status; N39.0 Urinary tract infection, site not specified; I47.1 Supraventricular tachycardia; I50.32 Chronic diastolic (congestive) heart failure; R13.10 Dysphagia, unspecified; D64.9 Anemia, unspecified; G40.909 Epilepsy, unspecified, not intractable, without status epilepticus; H10.9 Unspecified conjunctivitis; Z66 Do not resuscitate; E11.9 Type 2 diabetes mellitus without complications; K27.9 Peptic ulcer, site unspecified, unspecified as acute or chronic, without hemorrhage or perforation; Z16.12 Extended spectrum beta lactamase (ESBL) resistance; I11.0 Hypertensive heart disease with heart failure; K21.9 Gastro-esophageal reflux disease without esophagitis; I25.119 Atherosclerotic heart disease of native coronary artery with unspecified angina pectoris; Z68.24 Body mass index [BMI] 24.0-24.9, adult; Z93.1 Gastrostomy status; Z79.4 Long term (current) use of insulin
CPT/HCPCS: 36415-UA; 36600-90; 71045-TC; 80048-TC; 80053-TC; 80202-TC; 81001-TC; 82728-90; 82803-TC; 82948-90; 83540-90; 83550-90; 83605; 83735-TC; 83880-TC; 84484-TC; 85007-TC; 85025-TC; 85027-TC; 86141-TC; 86850-TC; 86900-TC; 86901-TC; 87070; 87070-90; 87086-90; 90779; 93005; 94002; 94003; 94640; 94760; 96379; J0692; J1815; J1956; J2060; J2185; J2543; J3370; J7030; J7040; J7512; P9046; Z7610

== ENCOUNTER 2017-06-22 18:42 | Inpatient (IN) | payer MEDICARE, MEDICAID ==
[2017-06-22] MEDS ORDERED: cefTRIAXone 1 GM in Sodium Chloride 0.9% 50 ML IV ONE (19:21)
--- NOTE | 2017-06-22 19:43 | ED Physician Chart ---
ED Chief Complaint/HPI - Patient Information Date Seen:: 06/22/17 Time Seen:: 19:00 Chief Complaint:: G-Tube Site Redness History of Present Illness:: onset x 2 days of g-tube site erythema and swelling; no report of trauma, H/As, neck pain, C/P, SOB, Abd. Pain, A/N/V/D/C, fever, chills, or urinary s/s Allergies:: Allergies Allergy/AdvReac Type Severity Reaction Status Date / Time No Known Allergies Allergy Verified 05/17/17 00:10 Vitals:: Vital Signs - 8 hr 06/22/17 19:08 Temp 97.4 F HR 89 RR 16 BP 114/73 O2 Sat % 100 Historian:: Patient, EMS Review:: Nurse's Note Reviewed, Old Chart Reviewed, EMS run form Reviewed ED Review of Systems - Review of Systems General/Constitutional: Fever, No chills, No weight loss, No weakness, No diaphoresis, No edema, No loss of appetite Skin: No skin lesions, No rash, No bruising Head: No headache, No light-headedness Eyes: No loss of vision, No pain, No diplopia ENT: No earache, No nasal drainage, No sore throat, No tinnitus Neck: No neck pain, No swelling, No thyromegaly, No stiffness, No mass noted Cardio Vascular: No chest pain, No palpitations, No PND, No orthopnea, No edema Pulmonary: SOB, Cough, No sputum, Wheezing GI: No nausea, No vomiting, No diarrhea, No pain, No melena, No hematochezia, No constipation, No hematemesis G/U: No dysuria, No frequency, No hematuria, No nacturia Musculoskeletal: No bone or joint pain, No back pain, No muscle pain Endocrine: No polyuria, No polydipsia Psychiatric: No prior psych history, No depression, No anxiety, No suicidal ideation, No homicidal ideation, No auditory hallucination, No visual hallucination Hematopoietic: No bruising, No lymphadenopathy Allergic/Immuno: No urticaria, No angioedema Neurological: No syncope, No focal symptoms, No weakness, No paresthesia, No headache, No seizure, No dizziness, No confusion, No vertigo ED Past Medical History - Past Medical History Obtainable: Yes Past Medical History: HTN, DM, Asthma/COPD, Dyslipidemia, PUD/GERD, ESRD, Arthritis Family History: Diabetes Melitus, HTN Social History: Non Smoker, No Alcohol, No Drug Use, Single, Care Facility Surgical History: PEG/GTube Psychiatricy History: None Medication: Reviewed Family Medical History - Family Member Mother History Unknown: Yes Ethnicity: Non- ED Physical Exam - Physical Examination General/Constitutional: Awake, Well-developed, well-nourished, Alert, No distress, GCS 15, Non-toxic appearing, Ambulatory Head: Atraumatic Eyes: Lids, conjuctiva normal, PERRL, EOMI Skin: Nl inspection, No rash, No skin lesions, No ecchymosis, Well hydrated, No lymphadenopathy ENMT: External ears, nose nl, TM canals nl, Nasal exam nl, Lips, teeth, gums nl , Oropharynx nl, Tonsils nl Neck: Nontender, Full ROM w/o pain, No JVD, No nuchal rigidity, No bruit, No mass, No stridor Respiratory: Nl effort/Exclusion, Clear to Auscultation, No Wheeze/Rhonchi/Rales Cardio Vascular: RRR, No murmur, gallop, rubs, NL S1 S2, Carotid/Femoral/Distal pulses equal bilaterally GI: No tenderness/rebounding/guarding, No organomegaly, No hernia, Normal BS's, Nondistended, No mass/bruits, No McBurney tenderness Other GI comments:: + G-Tube Site Cellulitis : No CVA tenderness Extremities: No tenderness or effusion, Full ROM, normal strength in all extremities, No edema, Normal digits & nails Neuro/Psych: Alert/oriented, DTR's symmetric, Normal sensory exam, Normal motor strength, Judgement/insight normal, Mood normal, Normal gait, No focal deficits Misc: Normal back, No paraspinal tenderness ED Septic Shock - . Is Septic Shock (SBP<90, OR Lactate>4 mmol\L) present?: No - <6hrs of presentation: Vital Signs: Vital Signs - 8 hr 06/22/17 19:08 Temp 97.4 F HR 89 RR 16 BP 114/73 O2 Sat % 100 ED Reassessment (Disposition) - Reassessment Reassessment Condition:: Improved - Diagnosis Diagnosis:: G-Tube Site Cellulitis; Sepsis; - Aftercare/Follow up Instructions Aftercare/Follow-Up Instructions:: Counseled pt regarding lab results/diagnosis & need follow up, Counseled pt & family regarding lab results/diagnosis & need follow up - Patient Disposition Discharge/Transfer:: Acute Care w/in this hosp Accepting Physician:: Dr. Ochoa Time Called:: 1944 Time Responded:: 19:45 Admitted to:: ICU Spoke to:: Dr. Ochoa Admitting Medical Physician:: Dr. Ochoa Condition at Disposition:: Stable, Improved
[2017-06-22 19:55] LABS: HEMOGLOBIN 8.2 gm/dL (12-16); MEAN CELL VOLUME 93.2 fl (80-99); MEAN CORPUSCULAR HEMOGLOBIN 33.2 pg (27.0-31.0); MEAN CORPUSCULAR HGB CONC 35.6 pg (28.0-36.0); MEAN PLATELET VOLUME 5.7 fl; PLATELET COUNT 283 Th/cmm (150-400); RED BLOOD COUNT 2.46 Mil/cmm (3.80-5.80); RED CELL DISTRIBUTION WIDTH 21.3 % (11.5-20.0); WHITE BLOOD COUNT 8.7 Th/cmm (4.8-10.8)
[2017-06-22 20:10] LABS: URINE MICROSCOPIC INDICATED? YES; URINE SOURCE CATH
[2017-06-22 20:11] LABS: ALB/GLOB RATIO 0.9 (1.0-1.8); ALBUMIN 3.6 gm/dL (4.2-5.5); ALKALINE PHOSPHATASE 107 U/L (34-104); BILIRUBIN,TOTAL 0.4 mg/dL (0.3-1.0); BUN - UREA NITROGEN 41 mg/dL (7-25); CALCIUM SERUM 10.3 mg/dL (8.6-10.3); CARBON DIOXIDE 27.4 mEq/L (21.0-31.0); CHLORIDE 93 mEq/L (98-107); CREATININE - SERUM 1.2 mg/dL (0.7-1.3); CREATININE KINASE 80 U/L (30-223); GFR AFRICAN-AMERICAN > 60.0 ml/min (>90); GFR NON AFRICAN-AMERICAN > 60.0 ml/min; GLUCOSE 115 mg/dL (70-105); POTASSIUM SERUM 3.4 mEq/L (3.5-5.1); SGOT 41 U/L (13-39); SGPT/ALT 52 U/L (7-52); SODIUM SERUM 129 mEq/L (136-145); TOTAL PROTEIN,SERUM 7.7 gm/dL (6.0-8.3)
[2017-06-22 20:12] LABS: TROP I 0.01 ng/mL (0.01-0.05)
[2017-06-22 20:16] LABS: INR 0.95 (0.5-1.4); PROTHROMBIN TIME (TEST) 9.9 SECONDS (9.5-11.5)
[2017-06-22 20:18] LABS: HEMATOCRIT 22.9 % (41.0-60)
[2017-06-22 20:18] LABS: URINE BILIRUBIN NEGATIVE (NEGATIVE); URINE BLOOD NEGATIVE (NEGATIVE); URINE GLUCOSE (UA) NEGATIVE (NEGATIVE); URINE KETONE NEGATIVE (NEGATIVE); URINE LEUKOCYTE ESTERASE MODERATE (NEGATIVE); URINE NITRATE POSITIVE (NEGATIVE); URINE PH 7.5 (4.6 - 8.0); URINE PROTEIN 30 mg/dL (NEGATIVE); URINE UROBILINOGEN 0.2 E.U./dL (0.2 - 1.0)
[2017-06-22 20:21] LABS: MANUAL DIFF REQUIRED? YES
[2017-06-22 20:26] LABS: URINE COLOR YELLOW
[2017-06-22 20:27] LABS: URINE CLARITY CLOUDY (CLEAR)
[2017-06-22 20:28] LABS: URINE BACTERIA MANY /hpf (NONE SEEN); URINE EPITHELIAL CELLS OCCASIONAL /lpf (FEW); URINE RBC 0-2 /hpf (0-5)
[2017-06-22 21:23] LABS: BAND NEUTROPHILE 2 % (0-10); BASOPHIL 0 % (0-3); EOSINOPHIL 1 % (0-5); LYMPHOCYTE 23 % (20-50); METAMYELOCYTE 1 % (0-0); MONOCYTE 1 % (2-10); MYELOCYTE 2 %; NEUTROPHILS 70 % (40-80); TOTAL CELLS COUNTED 100
[2017-06-22] MEDS ORDERED: Potassium Chloride 20 mEq ER Tab PO ONE (22:17)
[2017-06-22] MEDS ORDERED: Albuterol/Ipratropium Neb 3 ML AERS HHN PRN (22:42)
[2017-06-22] MEDS ORDERED: Piperacillin Sodium/Tazobact 3.375 gm Vial IV ONE (23:50)
[2017-06-23] MEDS: Albuterol/Ipratropium Neb 3 ML AERS HHN SCH ×4 (01:14→18:10)
[2017-06-23 04:52] LABS: MEAN CELL VOLUME 92.9 fl (80-99); MEAN CORPUSCULAR HEMOGLOBIN 33.2 pg (27.0-31.0); MEAN CORPUSCULAR HGB CONC 35.7 pg (28.0-36.0); PLATELET COUNT 258 Th/cmm (150-400); RED BLOOD COUNT 2.22 Mil/cmm (3.80-5.80); RED CELL DISTRIBUTION WIDTH 21.3 % (11.5-20.0); WHITE BLOOD COUNT 6.6 Th/cmm (4.8-10.8)
[2017-06-23 04:57] LABS: BUN - UREA NITROGEN 40 mg/dL (7-25); CALCIUM SERUM 9.9 mg/dL (8.6-10.3); CARBON DIOXIDE 27.2 mEq/L (21.0-31.0); CHLORIDE 97 mEq/L (98-107); CREATININE - SERUM 1.2 mg/dL (0.7-1.3); GFR AFRICAN-AMERICAN > 60.0 ml/min (>90); GFR NON AFRICAN-AMERICAN > 60.0 ml/min; GLUCOSE 90 mg/dL (70-105); POTASSIUM SERUM 3.2 mEq/L (3.5-5.1); SODIUM SERUM 133 mEq/L (136-145)
[2017-06-23 05:05] LABS: HEMATOCRIT 20.7 % (41.0-60); HEMOGLOBIN 7.4 gm/dL (12-16); MANUAL DIFF REQUIRED? YES
[2017-06-23] MEDS ORDERED: Piperacillin Sodium/Tazobact 3.375 gm Vial IV ONE (05:29)
[2017-06-23 05:53] LABS: BAND NEUTROPHILE 4 % (0-10); LYMPHOCYTE 10 % (20-50); MONOCYTE 6 % (2-10); NEUTROPHILS 80 % (40-80); PLATELET ESTIMATE ADEQUATE (NORMAL); TOTAL CELLS COUNTED 100
[2017-06-23] MEDS: Chlorhexidine Gluconate 0.12% 15mL Mouthwash MM SCH ×2 (08:00→21:15)
--- NOTE | 2017-06-23 08:32 | Diagnostic Imaging Report ---
Portable chest x-ray Time: 195 hours Compared to prior study 05/27/2017 History: Pain Allowing for portable technique the heart size is normal. No focal pulmonary parenchymal processes. No hilar or mediastinal abnormalities. Tracheostomy tube midline. Left-sided PICC line terminates vena cava. Right-sided ventriculostomy shunt catheter is noted. Impression: No acute abnormalities.
--- NOTE | 2017-06-23 16:56 | Consultation ---
Consult Note - Consult Note Service Date: 06/23/17 Referring Physician: Tello Ochoa Consult Note: PHYSICIAN Consultation Note: Date of Admission: 06/22/17 Purpose of Consultation: Chief Complaint: Patient NIKI CORNELL was admitted to location Intensive Care Unit with G-TUBE SITE CELLULITIS. History of Present Illness: The patient is a 70-year-old female with a past medical history of Status post cardiopulmonary arrest, vent-dependent respiratory failure, dysphagia and G- tube placement, anoxic encephalopathy, history of CHF, hypertension, diabetes mellitus type 2, coronary artery disease, asthma, COPD, PUD, GERD, seizure disorder, [employer] shunt placement brought in from nursing facility forredness of of the abdominal next to the G tube site. So far, there is no Gtube leak. On initial evaluation, his temperature was 97.4 and WBC count was 8,700. The patient was started on vancomycin and Zosyn and ID consult was called for antibiotic management. Past Medical History: Status post cardiopulmonary arrest, vent-dependent respiratory failure, dysphagia and G-tube placement, anoxic encephalopathy, history of CHF. Hypertension, diabetes mellitus type 2, coronary artery disease, asthma, COPD, PUD, GERD, seizure disorder, status post cardiopulmonary arrest, vent-dependent respiratory failure, anoxic encephalopathy, dysphagia, G-tube placement. Allergies Allergy/AdvReac Type Severity Reaction Status Date / Time No Known Allergies Allergy Verified 05/17/17 00:10 Vital Signs Temp 98.8 F 06/23/17 16:00 Pulse 108 06/23/17 16:00 Resp 19 06/23/17 16:00 BP 106/48 06/23/17 16:00 Pulse Ox 100 06/23/17 16:00 Intake & Output 06/22/17 06/23/17 06/23/17 18:59 06:59 18:59 Intake Total 450 300 Output Total 550 0 Balance -100 300 Weight (lbs) 60.98 kg 60.781 kg Intake: Intake, IV Amount 450 300 Piperacillin Sodium/ 100 50 Tazobact 3.375 gm In Sodium Chloride 0.9% 50 ml @ 100 mls/hr IV Q6HR [facility] Rx#:[id number] Vancomycin HCl 1 gm In 250 Sodium Chloride 0.9% 250 ml @ 165 mls/hr IV ONCE ONE Rx#:[id number] Vancomycin HCl 1.25 gm In 250 Sodium Chloride 0.9% 250 ml @ 165 mls/hr IV Q24H [facility] Rx#:[id number] cefTRIAXone 1 gm In 50 Sodium Chloride 0.9% 50 ml @ 100 mls/hr IV X1 ONE Rx#:[id number] Oral 0 Tube Feeding 0 Output: Urine 550 Stool 0 Other: # Bowel Movements 1 0 Stool Characteristics Soft Soft Brown Brown Laboratory Results - last 24 hr 06/23/17 06/23/17 04:20 04:20 WBC 6.6 RBC 2.22 L Hgb 7.4 L* Hct 20.7 L* MCV 92.9 MCH 33.2 H MCHC Differential 35.7 RDW 21.3 H Plt Count 258 MPV 6.0 Band Neutrophils % 4 Neutrophils (Manual) 80 Lymphocytes 10 L Monocytes 6 Platelet Estimate ADEQUATE Sodium 133 L Potassium 3.2 L Chloride 97 L Carbon Dioxide 27.2 Anion Gap 12.0 BUN 40 H Creatinine 1.2 Est GFR ( Amer) > 60.0 Est GFR (Non-Af Amer) > 60.0 BUN/Creatinine Ratio 33.3 Glucose 90 Calcium 9.9 Home Medication Medication Instructions Recorded Type Acetaminophen [Tylenol] 650 mg GT Q4HR PRN 05/17/17 History Albuterol Nebulizer 2.5mg/3mL 2.5 mg IH Q4HR PRN 05/17/17 History [Albuterol Neb UD*] Albuterol/Ipratropium Neb [Duoneb 3 ml HHN Q2HR PRN 05/17/17 History Neb] Amiodarone [Cordarone] 200 mg GT DAILY 05/17/17 History Hydralazine HCl 10 mg GT Q6H PRN 05/17/17 History Insulin Human Regular [NovoLIN R*] See Protocol SUBQ BID 05/17/17 History Ipratropium Neb 0.5 mg/2.5 mL 0.5 mg HHN Q4HR PRN 05/17/17 History [Atrovent Neb 0.5MG/2.5ML] Levetiracetam [Keppra] 500 mg GT BID 05/17/17 History Magnesium Hydroxide [Milk of 30 ml GT Q4H PRN 05/17/17 History Magnesia] Metoclopramide [Reglan] 5 mg GT Q6H PRN 05/17/17 History Metoprolol Tartrate [Lopressor] 12.5 mg GT DAILY 05/17/17 History Multivitamin w/ Minerals 5 ml GT DAILY 05/17/17 History [Theragran M] Pantoprazole [Protonix] 40 mg GT DAILY 05/17/17 History Prednisone 5 mg GT DAILY 05/17/17 History Vit C/Ascorbate Ca/Ascorb Sod 500 mg GT DAILY 05/17/17 History [Vitamin C 500 mg/15 ml Liquid] Amikacin Sulfate 450 mg IV Q36H 06/22/17 History Cran/Vitc/Mannose/Fos/Bromeln 30 ml GT DAILY 06/22/17 History [Uti-Stat Liquid] Docusate Sodium [Colace] 100 mg PO DAILY 06/22/17 History Ferrous Sulfate [Ferosul] 330 mg GT DAILY 06/22/17 History Folic Acid [Folate*] 1 tab GT DAILY 06/22/17 History Gentamicin 0.3% Ophth Soln [Gentak 1 drop RIGHT EYE Q6H 06/22/17 History 0.3% Ophth Soln] Current Medications Generic Name Dose Route Start Last Admin Trade Name Freq PRN Reason Stop Dose Admin Albuterol/Ipratropium 3 ml 06/23/17 01:00 06/23/17 13:49 Duoneb [facility] 08/22/17 00:59 3 ml Q6HRT PAO Administration Albuterol/Ipratropium 3 ml 06/22/17 22:42 Duoneb [facility] 08/21/17 22:41 Q2H PRN Wheezing Chlorhexidine Gluconate 15 ml 06/23/17 08:00 06/23/17 08:00 Peridex MM 08/22/17 07:59 15 ml 0800,2000 PAO Administration Piperacillin Sod/Tazobactam 50 mls @ 100 mls/hr 06/23/17 00:00 06/23/17 12:30 Sod 3.375 gm/ Sodium Chloride IV 08/22/17 00:00 Infused Q6HR PAO Infusion Vancomycin HCl 1.25 gm/ Sodium 250 mls @ 165 mls/hr 06/23/17 10:00 06/23/17 12:01 Chloride IV 08/22/17 09:59 Infused Q24H PAO Infusion Miscellaneous 1 ea 06/22/17 22:37 Vancomycin Iv Per Pharmacy 08/21/17 22:36 PRN PRN PROTOCOL Review of Systems: A 12 point ROS was reviewed with the pertinent positive and negatives noted in the HPI. Social History Smoking Status Unknown if ever smoked Drug Use No Alcohol Use No Family Medical History Family Medical History Start: 06/22/17 21: 25 Freq: ONCE Status: Active Document 06/22/17 22:15 [place] (Rec: 06/22/17 23:18 [place] DIANE- [email or web address]) Family Medical History Mother History Unknown Yes Ethnicity Non- Physical Exam: General: Comfortable, not in any distress, on the ventilator. HEENT: head: ND NT. Oral cavilty moist and pinkk tongue. Eyes: Right eue conjunctiva dry and erythematous. better than previous evaluation. Neck: trach site is clear, no JVD. No use of accessory neck muscles. Cardio: S1 and S2 WNL. Respiratory: Vesicular breath sounds, no crackles, no wheezing. Abdominal: Soft NT ND, G tube site, no leak, there is surrounding erythema. Genital/Urinary: deferred. Extremities: NCCE, flexion contracture. Neurological: open eyes, aphasic. Assessment: 1. abdominal wall cellultis. 2. diabetes mellitus type 2 3. coronary artery disease 4. Status post cardiopulmonary arrest. 5. Vent-dependent respiratory failure. 6. Dysphagia and G-tube placement. 7. anoxic encephalopathy. 8. history of CHF. 9. Hypertension 10. asthma, COPD 11. PUD, GERD 14. seizure disorder. 15. right eye conjunctivitis. Plan: Yan continue vanco IV and Zosyn. wound care. Thank you, Dr Ochoa for involving me in taking care of this patient. Fernando, Cirilo Taylor M.D. [id number]
[2017-06-24] MEDS: Albuterol/Ipratropium Neb 3 ML AERS HHN SCH ×4 (00:35→18:37)
[2017-06-24 05:42] LABS: ANION GAP 15.5 (7.0-16.0); CALCIUM SERUM 9.7 mg/dL (8.6-10.3); CARBON DIOXIDE 24.4 mEq/L (21.0-31.0); CREATININE - SERUM 1.6 mg/dL (0.7-1.3); GFR AFRICAN-AMERICAN 55.7 ml/min (>90); GFR NON AFRICAN-AMERICAN 46.1 ml/min
[2017-06-24 05:49] LABS: POTASSIUM SERUM 2.9 mEq/L (3.5-5.1)
[2017-06-24 05:56] LABS: % BASOPHILS 0.6 % (0.0-2.0); % EOSINOPHILS 8.4 % (0.0-5.0); % LYMPHOCYTES 12.2 % (20.0-50.0); % MONOCYTES 3.6 % (2.0-10.0); % NEUTROPHILS 75.2 % (40.0-80.0); EOSINOPHILE ABSOLUTE 0.6 Th/cmm (0.1-0.4); HEMATOCRIT 25.3 % (41.0-60); LYMPHOCYTE ABSOLUTE 0.8 Th/cmm (1.5-3.0); MEAN CORPUSCULAR HEMOGLOBIN 33.1 pg (27.0-31.0); MEAN CORPUSCULAR HGB CONC 35.5 pg (28.0-36.0); MEAN PLATELET VOLUME 5.9 fl; MONOCYTE ABSOLUTE 0.2 Th/cmm (0.3-1.0); NEUTROPHILE ABSOLUTE 5.1 Th/cmm (1.8-8.0); PLATELET COUNT 252 Th/cmm (150-400); RED BLOOD COUNT 2.72 Mil/cmm (3.80-5.80); RED CELL DISTRIBUTION WIDTH 21.4 % (11.5-20.0); WHITE BLOOD COUNT 6.7 Th/cmm (4.8-10.8)
[2017-06-24] MEDS ORDERED: KCL 20mEq/100mL Premix 20 MEQ/100 ML PIGGYBACK IV ONE (07:14)
[2017-06-24] MEDS ORDERED: KCL 20mEq/100mL Premix 20 MEQ/100 ML PIGGYBACK IV SCH ×2 (07:15→08:00)
[2017-06-24] MEDS: Chlorhexidine Gluconate 0.12% 15mL Mouthwash MM SCH ×2 (10:38→20:34)
--- NOTE | 2017-06-24 15:02 | Infectious Disease Prog Note ---
Infectious Disease Subjective - Review of Systems Service Date: 06/24/17 Subjective: there is no new change, no fever. Infectious Disease Objective - Results Result Diagrams: 06/26/17 09:00 06/26/17 09:00 Recent Labs: Laboratory Last Values WBC 6.7 Th/cmm (4.8-10.8) 06/24/17 04:10 RBC 2.72 Mil/cmm (3.80-5.80) L 06/24/17 04:10 Hgb 9.0 gm/dL (12-16) L 06/24/17 04:10 Hct 25.3 % (41.0-60) L 06/24/17 04:10 MCV 93.0 fl (80-99) 06/24/17 04:10 MCH 33.1 pg (27.0-31.0) H 06/24/17 04:10 MCHC Differential 35.5 pg (28.0-36.0) 06/24/17 04:10 RDW 21.4 % (11.5-20.0) H 06/24/17 04:10 Plt Count 252 Th/cmm (150-400) 06/24/17 04:10 MPV 5.9 fl 06/24/17 04:10 Neutrophils % 75.2 % (40.0-80.0) 06/24/17 04:10 Band Neutrophils % 4 % (0-10) 06/23/17 04:20 Lymphocytes % 12.2 % (20.0-50.0) L 06/24/17 04:10 Monocytes % 3.6 % (2.0-10.0) 06/24/17 04:10 Eosinophils % 8.4 % (0.0-5.0) H 06/24/17 04:10 Basophils % 0.6 % (0.0-2.0) 06/24/17 04:10 Neutrophils (Manual) 80 % (40-80) 06/23/17 04:20 Lymphocytes 10 % (20-50) L 06/23/17 04:20 Monocytes 6 % (2-10) 06/23/17 04:20 Eosinophils 1 % (0-5) 06/22/17 19:45 Basophils 0 % (0-3) 06/22/17 19:45 Metamyelocytes 1 % (0-0) H 06/22/17 19:45 Myelocytes 2 % 06/22/17 19:45 Platelet Estimate ADEQUATE (NORMAL) 06/23/17 04:20 PT 9.9 SECONDS (9.5-11.5) 06/22/17 19:45 INR 0.95 (0.5-1.4) 06/22/17 19:45 PTT (Actin FS) 24.3 SECONDS (26.0-38.0) L 06/22/17 19:45 Sodium 137 mEq/L (136-145) 06/24/17 04:10 Potassium 2.9 mEq/L (3.5-5.1) L* 06/24/17 04:10 Chloride 100 mEq/L (98-107) 06/24/17 04:10 Carbon Dioxide 24.4 mEq/L (21.0-31.0) 06/24/17 04:10 Anion Gap 15.5 (7.0-16.0) 06/24/17 04:10 BUN 34 mg/dL (7-25) H 06/24/17 04:10 Creatinine 1.6 mg/dL (0.7-1.3) H 06/24/17 04:10 Est GFR ( Amer) 55.7 ml/min (>90) 06/24/17 04:10 Est GFR (Non-Af Amer) 46.1 ml/min 06/24/17 04:10 BUN/Creatinine Ratio 21.3 06/24/17 04:10 Glucose 119 mg/dL (70-105) H 06/24/17 04:10 Whole Bld Lactic Acid 1.96 mmol/L (0.60-1.99) 06/22/17 19:45 Calcium 9.7 mg/dL (8.6-10.3) 06/24/17 04:10 Total Bilirubin 0.4 mg/dL (0.3-1.0) 06/22/17 19:45 AST 41 U/L (13-39) H 06/22/17 19:45 ALT 52 U/L (7-52) 06/22/17 19:45 Alkaline Phosphatase 107 U/L (34-104) H 06/22/17 19:45 Creatine Kinase 80 U/L (30-223) 06/22/17 19:45 Troponin I 0.01 ng/mL (0.01-0.05) 06/22/17 19:45 Total Protein 7.7 gm/dL (6.0-8.3) 06/22/17 19:45 Albumin 3.6 gm/dL (4.2-5.5) L 06/22/17 19:45 Globulin 4.1 gm/dL 06/22/17 19:45 Albumin/Globulin Ratio 0.9 (1.0-1.8) L 06/22/17 19:45 Urine Source CATH 06/22/17 19:30 Urine Color YELLOW 06/22/17 19:30 Urine Clarity CLOUDY (CLEAR) 06/22/17 19:30 Urine pH 7.5 (4.6 - 8.0) 06/22/17 19:30 Ur Specific [place] 1.015 (1.005-1.030) 06/22/17 19:30 Urine Protein 30 mg/dL (NEGATIVE) H 06/22/17 19:30 Urine Glucose (UA) NEGATIVE mg/dL (NEGATIVE) 06/22/17 19:30 Urine Ketones NEGATIVE mg/dL (NEGATIVE) 06/22/17 19:30 Urine Blood NEGATIVE (NEGATIVE) 06/22/17 19:30 Urine Nitrate POSITIVE (NEGATIVE) H 06/22/17 19:30 Urine Bilirubin NEGATIVE (NEGATIVE) 06/22/17 19:30 Urine Urobilinogen 0.2 E.U./dL (0.2 - 1.0) 06/22/17 19:30 Ur Leukocyte Esterase MODERATE (NEGATIVE) H 06/22/17 19:30 Urine RBC 0-2 /hpf (0-5) H 06/22/17 19:30 Urine WBC 6-10 /hpf (0-5) 06/22/17 19:30 Ur Epithelial Cells OCCASIONAL /lpf (FEW) 06/22/17 19:30 Urine Bacteria MANY /hpf (NONE SEEN) H 06/22/17 19:30 - Physical Exam Vitals and I&O: Vital Signs Temp 98.4 F 06/24/17 08:00 Pulse 103 06/24/17 13:21 Resp 18 06/24/17 10:00 BP 147/78 06/24/17 10:00 Pulse Ox 100 06/24/17 13:21 Intake & Output 06/23/17 06/24/17 06/24/17 18:59 06:59 18:59 Intake Total 350 100 Output Total 500 450 Balance -150 -350 Weight (lbs) 60.781 kg 60.781 kg Intake: Intake, IV Amount 350 100 Piperacillin Sodium/ 100 100 Tazobact 3.375 gm In Sodium Chloride 0.9% 50 ml @ 100 mls/hr IV Q6HR [facility] Rx#:[id number] Vancomycin HCl 1.25 gm In 250 Sodium Chloride 0.9% 250 ml @ 165 mls/hr IV Q24H [facility] Rx#:[id number] Output: Urine 500 450 Stool 0 Urine/Stool Mix 0 Emesis 0 Other: # Bowel Movements 0 Stool Characteristics Soft Brown Active Medications: Current Medications Albuterol/Ipratropium (Duoneb Neb) 3 ml HHN Q6HRT [facility] Stop: 08/22/17 00:59 Last Admin: 06/24/17 13:21 Dose: 3 ml Albuterol/Ipratropium (Duoneb Neb) 3 ml HHN Q2H PRN PRN Reason: Wheezing Stop: 08/21/17 22:41 Chlorhexidine Gluconate (Peridex) 15 ml MM 0800,1999 [facility] Stop: 08/22/17 07:59 Last Admin: 06/24/17 10:38 Dose: 15 ml Piperacillin Sod/Tazobactam (Sod 3.375 gm/ Sodium Chloride) 50 mls @ 100 mls/ hr IV Q6HR [facility] Stop: 08/22/17 00:00 Last Admin: 06/24/17 11:15 Dose: 100 mls/hr Vancomycin HCl 1.25 gm/ Sodium (Chloride) 250 mls @ 165 mls/hr IV Q24H [facility] Stop: 08/22/17 09:59 Last Admin: 06/24/17 10:28 Dose: 165 mls/hr Potassium Chloride 60 meq/ (Sodium Chloride) 530 mls @ 88.333 mls/hr IV ONCE ONE Stop: 06/24/17 16:44 Last Admin: 06/24/17 11:13 Dose: 88.333 mls/hr Dextrose/Sodium Chloride (D5-0.9%Ns) 1,000 mls @ 75 mls/hr IV .[id number] [facility] Stop: 08/23/17 14:56 Miscellaneous (Vancomycin Iv Per Pharmacy) 1 ea MC PRN PRN PRN Reason: PROTOCOL Stop: 08/21/17 22:36 Pantoprazole Sodium (Protonix) 40 mg IVP DAILY [facility] Stop: 08/24/17 08:59 General: no acute distress, well developed, well nourished HEENT: atraumatic, normocephalic, PERRLA Neck: supple, thyromegaly, tracheostomy Cardiovascular: S1S2, regular Lungs: clear to auscultation bilaterally, clear to percussion Abdomen: soft, no tender, no mass Extremities: no cyanosis, no clubbing Neurological: awake, alert, oriented Skin: intact - Procedures Procedures: Procedures Procedure Code Date BLOOD TRANSFUSION SERVICE 71400 05/17/17 RESPIRATORY VENTILATION, 24-96 CONSECUTIVE HOURS [id number] 06/22/17 TRANSFUSE NONAUT RED BLOOD CELLS IN PERIPH VEIN, PERC [id number] 05/17/17 Infectious Disease Assmt/Plan - Assessment Assessment: 1. abdominal wall cellultis. 2. diabetes mellitus type 2 3. coronary artery disease 4. Status post cardiopulmonary arrest. 5. Vent-dependent respiratory failure. 6. Dysphagia and G-tube placement. 7. anoxic encephalopathy. 8. history of CHF. 9. Hypertension 10. asthma, COPD 11. PUD, GERD 14. seizure disorder. 15. right eye conjunctivitis. - Plan Plan: Continue the same treatment. D5NS for nutrition. Protonix iv for gi prophylaxis. Nutritional Asmnt/Malnutr-PDOC - Dietary Evaluation Malnutrition Findings (Please click <Entered> for more info): Nutritional Asmnt/Malnutrition Start: 06/23/17 14: 03 Text: Status: Complete Freq: Document 06/23/17 14:03 [place] (Rec: 06/23/17 14:26 [place] [email or web address]) Nutritional Asmnt/Malnutrition Patient General Information Nutritional Screening High Risk Diagnosis G-tube site cellulitis Pertinent Medical Hx/Surgical Hx HTN, DM, asthma/COPD, dyslipidemia, PUD/GERD, ESRD, arthritis, PEG/Gtube Subjective Information Pt seen on vent via trach. Current Diet Order/ Nutrition Support no diet order Pertinent Medications 06/23 Na 133, K 3.2, Cl 97, BUN 40, Cr 1.2, Glucose 90, CA 9. 9 Pertinent Labs piperacillin, vancomycin Nutritional Hx/Data Height 1.3 m Height (Calculated Centimeters) 129.5 Current Weight (lbs) 60.781 kg Weight (Calculated Kilograms) 60.8 Weight (Calculated Grams) 93911.4 [place] Body Weight 82 Body Mass Index (BMI) 36.2 GI Symptoms GI Symptoms None Last BM 06/23 Difficult in: None Usual diet at home From chart: Fibersource HN 60ml/hr x 20hr, providing 1440kcal, 65g protein. Skin Integrity/Comment: cellulitis at g-tube site reddened to buttock Estimated Nutritional Goals BEE in Kcals: Using Current wt Calories/Kcals/Kg 20-25 Kcals Calculated 8956-2315 Protein: Using Current wt Protein g/k Protein Calculated 61 Fluid: ml 1220-1525ml (1ml/kcal) Nutritional Problem 1. Problem Problem altered nutrition related labs Etiology electrolytes imbalanced, hx of ESRD Signs/Symptoms: Na 133, K 3.2, Cl 97, BUN 40 Intervention/Recommendation Comments 1. Monitor NPO status. 2. If tubefeeding needed, recommend fibersource HN 60ml/ hr x 20hr. This will provide 1440kcal and 65g protein, 972ml free water. 3. Monitor wt, labs and skin integrity 4. F/U as high risk in 2-3 days, 06/25-06/26 Expected Outcomes/Goals Expected Outcomes/Goals 1. Pt to meet at least 75% of nutritional needs via nutrition support with tolerance 2. Wt stability, skin to remain intact, labs to approach WNL.
[2017-06-24] MEDS ORDERED: Albuterol Nebulizer 2.5mg/3mL HHN PRN (15:38)
[2017-06-24] MEDS ORDERED: Ipratropium Neb 0.5 mg/2.5 mL UD HHN PRN (15:38)
[2017-06-24] MEDS ORDERED: Magnesium Hydroxide (MOM) 30 mL UDC GT PRN (15:38)
[2017-06-24] MEDS ORDERED: Albuterol/Ipratropium Neb 3 ML AERS HHN PRN (15:38)
--- NOTE | 2017-06-24 15:43 | History and Physical ---
History of Present Illness - HPI Chief Complaint: G-Tube Site Redness HPI: This is a 66 year old who is a resident of [facility] admitted to the ICU unit due to x2 days of GT redness. Vital Signs: Last Vital Signs Temp 98.4 F 06/24/17 08:00 Pulse 97 06/24/17 15:07 Resp 18 06/24/17 10:00 BP 147/78 06/24/17 10:00 Pulse Ox 100 06/24/17 15:07 Past Medical History Other History: HTN, DM, Asthma/COPD, Dyslipidemia, PUD/GERD, ESRD, Arthritis Family Medical History - Family Member Mother History Unknown: Yes Ethnicity: Non- Social History Smoke: No Alcohol: None Drugs: None Lives: Halfway - Medications Home Medications: Home Medication Medication Instructions Recorded Type Acetaminophen [Tylenol] 650 mg GT Q4HR PRN 05/17/17 History Albuterol Nebulizer 2.5mg/3mL 2.5 mg IH Q4HR PRN 05/17/17 History [Albuterol Neb UD*] Albuterol/Ipratropium Neb [Duoneb 3 ml HHN Q2HR PRN 05/17/17 History Neb] Amiodarone [Cordarone] 200 mg GT DAILY 05/17/17 History Hydralazine HCl 10 mg GT Q6H PRN 05/17/17 History Insulin Human Regular [NovoLIN R*] See Protocol SUBQ BID 05/17/17 History Ipratropium Neb 0.5 mg/2.5 mL 0.5 mg HHN Q4HR PRN 05/17/17 History [Atrovent Neb 0.5MG/2.5ML] Levetiracetam [Keppra] 500 mg GT BID 05/17/17 History Magnesium Hydroxide [Milk of 30 ml GT Q4H PRN 05/17/17 History Magnesia] Metoclopramide [Reglan] 5 mg GT Q6H PRN 05/17/17 History Metoprolol Tartrate [Lopressor] 12.5 mg GT DAILY 05/17/17 History Multivitamin w/ Minerals 5 ml GT DAILY 05/17/17 History [Theragran M] Pantoprazole [Protonix] 40 mg GT DAILY 05/17/17 History Prednisone 5 mg GT DAILY 05/17/17 History Vit C/Ascorbate Ca/Ascorb Sod 500 mg GT DAILY 05/17/17 History [Vitamin C 500 mg/15 ml Liquid] Amikacin Sulfate 450 mg IV Q36H 06/22/17 History Cran/Vitc/Mannose/Fos/Bromeln 30 ml GT DAILY 06/22/17 History [Uti-Stat Liquid] Docusate Sodium [Colace] 100 mg PO DAILY 06/22/17 History Ferrous Sulfate [Ferosul] 330 mg GT DAILY 06/22/17 History Folic Acid [Folate*] 1 tab GT DAILY 06/22/17 History Gentamicin 0.3% Ophth Soln [Gentak 1 drop RIGHT EYE Q6H 06/22/17 History 0.3% Ophth Soln] - Allergies Allergies/Adverse Reactions: Allergies Allergy/AdvReac Type Severity Reaction Status Date / Time No Known Allergies Allergy Verified 05/17/17 00:10 Review of Systems - Review of Systems Constitutional: Report: No Significant Eyes: Report: Conjunctivae Inflammation, Redness ENT: Report: No Significant Respiratory: Report: No Significant Cardiovascular: Report: No Significant Gastrointestinal: Report: No Significant Neurological: Report: Weakness Physical Exam - Physical Exam HEENT: Report: Ears Nose Throat within normal limits Neck: Report: Within normal limits Cardiovascular Systems: Report: +s1/s2 noted, Regular, Rate and Rhythm Respiratory: Report: Breath Sounds are within normal limits Abdomen: Report: Non-tender to palpation Back: Report: Inspection of back is within normal limits. Extremities: Report: Non-tender to palpation. Skin: Report: Color of skin is within normal limits Neuro/Psych: Report: Mood affect is within normal limits - Lab Results All Lab Results last 24 hours: Laboratory Results - last 24 hr 06/24/17 06/24/17 04:10 04:10 WBC 6.7 RBC 2.72 L Hgb 9.0 L Hct 25.3 L MCV 93.0 MCH 33.1 H MCHC Differential 35.5 RDW 21.4 H Plt Count 252 MPV 5.9 Neutrophils % 75.2 Lymphocytes % 12.2 L Monocytes % 3.6 Eosinophils % 8.4 H Basophils % 0.6 Sodium 137 Potassium 2.9 L* Chloride 100 Carbon Dioxide 24.4 Anion Gap 15.5 BUN 34 H Creatinine 1.6 H Est GFR ( Amer) 55.7 Est GFR (Non-Af Amer) 46.1 BUN/Creatinine Ratio 21.3 Glucose 119 H Calcium 9.7 - Assessment Assessment: GT cellulitis Acute on chronic respiratory failure VDRF HTN DM Asthma/COPD Dyslipidemia PUD/GERD ESRD Arthritis - Plan Plan: ivabx as per id pulmo consultation vent support wound care continue the rest of the orders
[2017-06-24] MEDS ORDERED: AMIKACIN SULFATE IV SCH (15:45)
[2017-06-24] MEDS: D5-0.9%NS 1,000 ML IV SCH (16:51)
[2017-06-24] MEDS: Gentamicin 0.3% Ophth Soln 5mL Bottle RIGHT EYE SCH ×2 (18:05→22:30)
[2017-06-24] MEDS: Levetiracetam 500 mg/5mL 5mL UDSyr *for ORAL USE ONLY GT SCH (18:13)
[2017-06-24] MEDS: INSULIN ASPART, RECOMBINANT 100 UNITS/ML SUBQ SCH (18:15)
[2017-06-25] MEDS: Albuterol/Ipratropium Neb 3 ML AERS HHN SCH ×4 (00:41→18:34)
[2017-06-25 05:12] LABS: ALB/GLOB RATIO 0.9 (1.0-1.8); ALBUMIN 3.2 gm/dL (4.2-5.5); BILIRUBIN,TOTAL 0.5 mg/dL (0.3-1.0); CALCIUM SERUM 9.1 mg/dL (8.6-10.3); CARBON DIOXIDE 21.3 mEq/L (21.0-31.0); CREATININE - SERUM 1.6 mg/dL (0.7-1.3); GFR AFRICAN-AMERICAN 55.7 ml/min (>90); GFR NON AFRICAN-AMERICAN 46.1 ml/min; POTASSIUM SERUM 3.3 mEq/L (3.5-5.1); TOTAL PROTEIN,SERUM 6.9 gm/dL (6.0-8.3)
[2017-06-25] MEDS: Gentamicin 0.3% Ophth Soln 5mL Bottle RIGHT EYE SCH ×4 (05:41→21:46)
[2017-06-25] MEDS: D5-0.9%NS 1,000 ML IV SCH ×2 (05:42→17:44)
[2017-06-25 06:15] LABS: RED BLOOD COUNT 2.17 Mil/cmm (3.80-5.80); RED CELL DISTRIBUTION WIDTH 21.4 % (11.5-20.0)
[2017-06-25 06:27] LABS: MEAN CELL VOLUME 94.1 fl (80-99); MEAN CORPUSCULAR HEMOGLOBIN 33.1 pg (27.0-31.0); MEAN CORPUSCULAR HGB CONC 35.1 pg (28.0-36.0); MEAN PLATELET VOLUME 5.7 fl; PLATELET COUNT 190 Th/cmm (150-400); WHITE BLOOD COUNT 6.2 Th/cmm (4.8-10.8)
[2017-06-25 06:40] LABS: HEMATOCRIT 20.4 % (41.0-60); HEMOGLOBIN 7.2 gm/dL (12-16)
[2017-06-25 06:42] LABS: MANUAL DIFF REQUIRED? YES
[2017-06-25 07:00] LABS: ANISOCYTOSIS 1+; EOSINOPHIL 3 % (0-5); LYMPHOCYTE 11 % (20-50); MONOCYTE 5 % (2-10); NEUTROPHILS 81 % (40-80); TOTAL CELLS COUNTED 100
[2017-06-25] MEDS: INSULIN ASPART, RECOMBINANT 100 UNITS/ML SUBQ SCH ×2 (07:29→16:33)
[2017-06-25 07:45] LABS: HEMATOCRIT 23.4 % (41.0-60); HEMOGLOBIN 8.1 gm/dL (12-16); MEAN CELL VOLUME 94.4 fl (80-99); MEAN CORPUSCULAR HEMOGLOBIN 32.6 pg (27.0-31.0); MEAN CORPUSCULAR HGB CONC 34.5 pg (28.0-36.0); MEAN PLATELET VOLUME 4.8 fl; RED BLOOD COUNT 2.48 Mil/cmm (3.80-5.80); RED CELL DISTRIBUTION WIDTH 21.8 % (11.5-20.0); WHITE BLOOD COUNT 6.6 Th/cmm (4.8-10.8)
[2017-06-25 07:47] LABS: MANUAL DIFF REQUIRED? YES; PLATELET COUNT 263 Th/cmm (150-400)
[2017-06-25 07:55] LABS: TOTAL CELLS COUNTED 100
[2017-06-25 08:03] LABS: ANISOCYTOSIS 1+; BAND NEUTROPHILE 2 % (0-10); EOSINOPHIL 7 % (0-5); LYMPHOCYTE 17 % (20-50); MONOCYTE 4 % (2-10); NEUTROPHILS 70 % (40-80)
[2017-06-25] MEDS ORDERED: KCL 20mEq/100mL Premix 20 MEQ/100 ML PIGGYBACK IV ONE (08:14)
[2017-06-25] MEDS ORDERED: Non-Formulary Item 1 EA (Cran/Vitc/Mannose/Fos/Bromeln [Uti-Stat Liquid] 30 ML) GT SCH (09:00)
[2017-06-25] MEDS ORDERED: Ascorbic Acid 500 mg/5 mL UDC GT SCH (09:00)
[2017-06-25] MEDS ORDERED: Pantoprazole 40 mg/Packet GT SCH (09:00)
[2017-06-25] MEDS: Chlorhexidine Gluconate 0.12% 15mL Mouthwash MM SCH ×2 (09:19→20:31)
[2017-06-25] MEDS: Levetiracetam 500 mg/5mL 5mL UDSyr *for ORAL USE ONLY GT SCH ×2 (09:21→16:30)
[2017-06-25] MEDS: Ferrous Sulfate 300 MG/5 ML UDC GT SCH (09:22)
[2017-06-25] MEDS: Multivitamin w/ Minerals Tab GT SCH (09:22)
[2017-06-25] MEDS: Docusate Sodium 100 mg/10 mL UD GT SCH (09:22)
[2017-06-25] MEDS: predniSONE 5 mg/5 mL UDC GT SCH (09:55)
--- NOTE | 2017-06-25 10:52 | General Progress Note ---
Subjective - Review of Systems Events since last encounter: patient with gtube redness seems comfortable no signs of pain Objective - Results Result Diagrams: 06/25/17 07:36 06/25/17 04:15 Recent Labs: Laboratory Last Values WBC 6.6 Th/cmm (4.8-10.8) 06/25/17 07:36 RBC 2.48 Mil/cmm (3.80-5.80) L 06/25/17 07:36 Hgb 8.1 gm/dL (12-16) L 06/25/17 07:36 Hct 23.4 % (41.0-60) L 06/25/17 07:36 MCV 94.4 fl (80-99) 06/25/17 07:36 MCH 32.6 pg (27.0-31.0) H 06/25/17 07:36 MCHC Differential 34.5 pg (28.0-36.0) 06/25/17 07:36 RDW 21.8 % (11.5-20.0) H 06/25/17 07:36 Plt Count 263 Th/cmm (150-400) D 06/25/17 07:36 MPV 4.8 fl 06/25/17 07:36 Neutrophils % 75.2 % (40.0-80.0) 06/24/17 04:10 Band Neutrophils % 2 % (0-10) 06/25/17 07:36 Lymphocytes % 12.2 % (20.0-50.0) L 06/24/17 04:10 Monocytes % 3.6 % (2.0-10.0) 06/24/17 04:10 Eosinophils % 8.4 % (0.0-5.0) H 06/24/17 04:10 Basophils % 0.6 % (0.0-2.0) 06/24/17 04:10 Neutrophils (Manual) 70 % (40-80) 06/25/17 07:36 Lymphocytes 17 % (20-50) L 06/25/17 07:36 Monocytes 4 % (2-10) 06/25/17 07:36 Eosinophils 7 % (0-5) H 06/25/17 07:36 Basophils 0 % (0-3) 06/22/17 19:45 Metamyelocytes 1 % (0-0) H 06/22/17 19:45 Myelocytes 2 % 06/22/17 19:45 Platelet Estimate ADEQUATE (NORMAL) 06/23/17 04:20 Anisocytosis 1+ 06/25/17 07:36 PT 9.9 SECONDS (9.5-11.5) 06/22/17 19:45 INR 0.95 (0.5-1.4) 06/22/17 19:45 PTT (Actin FS) 24.3 SECONDS (26.0-38.0) L 06/22/17 19:45 Sodium 142 mEq/L (136-145) 06/25/17 04:15 Potassium 3.3 mEq/L (3.5-5.1) L 06/25/17 04:15 Chloride 111 mEq/L (98-107) H 06/25/17 04:15 Carbon Dioxide 21.3 mEq/L (21.0-31.0) 06/25/17 04:15 Anion Gap 13.0 (7.0-16.0) 06/25/17 04:15 BUN 25 mg/dL (7-25) 06/25/17 04:15 Creatinine 1.6 mg/dL (0.7-1.3) H 06/25/17 04:15 Est GFR ( Amer) 55.7 ml/min (>90) 06/25/17 04:15 Est GFR (Non-Af Amer) 46.1 ml/min 06/25/17 04:15 BUN/Creatinine Ratio 15.6 06/25/17 04:15 Glucose 173 mg/dL (70-105) H 06/25/17 04:15 POC Glucose 154 MG/DL (70 - 105) H 06/24/17 18:08 Whole Bld Lactic Acid 1.96 mmol/L (0.60-1.99) 06/22/17 19:45 Calcium 9.1 mg/dL (8.6-10.3) 06/25/17 04:15 Total Bilirubin 0.5 mg/dL (0.3-1.0) 06/25/17 04:15 AST 22 U/L (13-39) 06/25/17 04:15 ALT 32 U/L (7-52) 06/25/17 04:15 Alkaline Phosphatase 67 U/L (34-104) 06/25/17 04:15 Creatine Kinase 80 U/L (30-223) 06/22/17 19:45 Troponin I 0.01 ng/mL (0.01-0.05) 06/22/17 19:45 Total Protein 6.9 gm/dL (6.0-8.3) 06/25/17 04:15 Albumin 3.2 gm/dL (4.2-5.5) L 06/25/17 04:15 Globulin 3.7 gm/dL 06/25/17 04:15 Albumin/Globulin Ratio 0.9 (1.0-1.8) L 06/25/17 04:15 Urine Source CATH 06/22/17 19:30 Urine Color YELLOW 06/22/17 19:30 Urine Clarity CLOUDY (CLEAR) 06/22/17 19:30 Urine pH 7.5 (4.6 - 8.0) 06/22/17 19:30 Ur Specific [place] 1.015 (1.005-1.030) 06/22/17 19:30 Urine Protein 30 mg/dL (NEGATIVE) H 06/22/17 19:30 Urine Glucose (UA) NEGATIVE mg/dL (NEGATIVE) 06/22/17 19:30 Urine Ketones NEGATIVE mg/dL (NEGATIVE) 06/22/17 19:30 Urine Blood NEGATIVE (NEGATIVE) 06/22/17 19:30 Urine Nitrate POSITIVE (NEGATIVE) H 06/22/17 19:30 Urine Bilirubin NEGATIVE (NEGATIVE) 06/22/17 19:30 Urine Urobilinogen 0.2 E.U./dL (0.2 - 1.0) 06/22/17 19:30 Ur Leukocyte Esterase MODERATE (NEGATIVE) H 06/22/17 19:30 Urine RBC 0-2 /hpf (0-5) H 06/22/17 19:30 Urine WBC 6-10 /hpf (0-5) 06/22/17 19:30 Ur Epithelial Cells OCCASIONAL /lpf (FEW) 06/22/17 19:30 Urine Bacteria MANY /hpf (NONE SEEN) H 06/22/17 19:30 Vancomycin Trough 26.6 ug/mL (10-20) H 06/25/17 07:36 - Physical Exam Vitals and I&O: Vital Signs Temp 96.6 F 06/25/17 10:00 Pulse 95 06/25/17 10:00 Resp 16 06/25/17 10:00 BP 147/72 06/25/17 10:00 Pulse Ox 100 06/25/17 10:00 Intake & Output 06/24/17 06/25/17 06/25/17 18:59 06:59 18:59 Intake Total 150 1063.75 Output Total 500 325 Balance -350 738.75 Weight (lbs) 60.781 kg 60.781 kg Intake: Intake, IV Amount 100 1063.75 D5-0.9%Ns 1,000 ml @ 75 963.75 mls/hr IV .[id number] [facility] Rx #:[id number] Piperacillin Sodium/ 100 100 Tazobact 3.375 gm In Sodium Chloride 0.9% 50 ml @ 100 mls/hr IV Q6HR [facility] Rx#:[id number] Other 50 Output: Urine 500 325 Other: # Bowel Movements 1 Weight Source Bedscale Bedscale Active Medications: Current Medications Acetaminophen (Tylenol) 650 mg GT Q4HR PRN PRN Reason: Pain or Fever >101 Stop: 08/23/17 15:37 Last Admin: 06/24/17 23:36 Dose: 650 mg Albuterol/Ipratropium (Duoneb Neb) 3 ml HHN Q6HRT [facility] Stop: 08/22/17 00:59 Last Admin: 06/25/17 07:47 Dose: 3 ml Albuterol/Ipratropium (Duoneb Neb) 3 ml HHN Q2H PRN PRN Reason: Wheezing Stop: 08/21/17 22:41 Albuterol/Ipratropium (Duoneb Neb) 3 ml HHN Q2HR PRN PRN Reason: Shortness of Breath Stop: 08/23/17 15:37 Amiodarone HCl (Cordarone) 200 mg GT DAILY [facility] Stop: 08/24/17 08:59 Last Admin: 06/25/17 09:21 Dose: 200 mg Ascorbic Acid (Vitamin C) 500 mg GT DAILY [facility] Stop: 08/24/17 08:59 Chlorhexidine Gluconate (Peridex) 15 ml MM 0800,1999 [facility] Stop: 08/22/17 07:59 Last Admin: 06/25/17 09:19 Dose: 15 ml Docusate Sodium (Colace) 100 mg GT DAILY [facility] Stop: 08/24/17 08:59 Last Admin: 06/25/17 09:22 Dose: 100 mg Ferrous Sulfate (Iron) 300 mg GT DAILY [facility] Stop: 08/24/17 08:59 Last Admin: 06/25/17 09:22 Dose: 300 mg Folic Acid (Folate) 1 mg GT DAILY [facility] Stop: 08/24/17 08:59 Last Admin: 06/25/17 09:22 Dose: 1 mg Gentamicin Sulfate (Gentak 0.3% Ophth Soln) 1 drop RIGHT EYE Q6H [facility] Stop: 08/23/17 15:44 Last Admin: 06/25/17 05:41 Dose: Not Given Hydralazine HCl (Apresoline) 10 mg GT Q6H PRN PRN Reason: SBP ABOVE 160 Stop: 08/23/17 15:37 Last Admin: 06/25/17 06:38 Dose: 10 mg Piperacillin Sod/Tazobactam (Sod 3.375 gm/ Sodium Chloride) 50 mls @ 100 mls/ hr IV Q6HR [facility] Stop: 08/22/17 00:00 Last Infusion: 06/25/17 06:15 Dose: Infused Dextrose/Sodium Chloride (D5-0.9%Ns) 1,000 mls @ 75 mls/hr IV .[id number] [facility] Stop: 08/23/17 14:56 Last Admin: 06/25/17 05:42 Dose: 75 mls/hr Vancomycin HCl 1 gm/ Dextrose 250 mls @ 165 mls/hr IV Q24HR@1000 [facility] Stop: 08/25/17 09:59 Insulin Aspart (Novolog) 0 units SUBQ BIDAC PAO PRN Reason: Protocol Stop: 08/23/17 16:29 Last Admin: 06/25/17 07:29 Dose: Not Given Levetiracetam (Keppra) 500 mg GT BID [facility] Stop: 08/23/17 16:59 Last Admin: 06/25/17 09:21 Dose: 500 mg Magnesium Hydroxide (Milk Of Magnesia) 30 ml GT BID PRN PRN Reason: Constipation Stop: 08/23/17 15:37 Metoclopramide HCl (Reglan) 5 mg GT Q6H PRN PRN Reason: gerd Stop: 08/23/17 15:37 Metoprolol Tartrate (Lopressor) 12.5 mg GT DAILY [facility] Stop: 08/24/17 08:59 Last Admin: 06/25/17 09:21 Dose: 12.5 mg Miscellaneous (Vancomycin Iv Per Pharmacy) 1 ea PRN PRN PRN Reason: PROTOCOL Stop: 08/21/17 22:36 Miscellaneous (Amikacin Sulfate [Amikacin Sulfate]) 450 mg IV Q36H [facility] Stop: 08/23/17 15:44 Pantoprazole Sodium (Protonix) 40 mg IVP DAILY [facility] Stop: 08/24/17 08:59 Last Admin: 06/25/17 09:21 Dose: 40 mg Prednisone (Prednisone) 5 mg GT DAILY [facility] Stop: 08/24/17 08:59 - Procedures Procedures: Procedures Procedure Code Date BLOOD TRANSFUSION SERVICE 04432 05/17/17 RESPIRATORY VENTILATION, 24-96 CONSECUTIVE HOURS [id number] 06/22/17 TRANSFUSE NONAUT RED BLOOD CELLS IN PERIPH VEIN, PERC 40918Z9 05/17/17 Nutritional Asmnt/Malnutr-PDOC - Dietary Evaluation Malnutrition Findings (Please click <Entered> for more info): Nutritional Asmnt/Malnutrition Start: 06/23/17 14: 03 Text: Status: Complete Freq: Document 06/23/17 14:03 LCHENG (Rec: 06/23/17 14:26 [email or web address] [email or web address]) Nutritional Asmnt/Malnutrition Patient General Information Nutritional Screening High Risk Diagnosis G-tube site cellulitis Pertinent Medical Hx/Surgical Hx HTN, DM, asthma/COPD, dyslipidemia, PUD/GERD, ESRD, arthritis, PEG/Gtube Subjective Information Pt seen on vent via trach. Current Diet Order/ Nutrition Support no diet order Pertinent Medications 06/23 Na 133, K 3.2, Cl 97, BUN 40, Cr 1.2, Glucose 90, CA 9. 9 Pertinent Labs piperacillin, vancomycin Nutritional Hx/Data Height 1.3 m Height (Calculated Centimeters) 129.5 Current Weight (lbs) 60.781 kg Weight (Calculated Kilograms) 60.8 Weight (Calculated Grams) 19669.4 [place] Body Weight 82 Body Mass Index (BMI) 36.2 GI Symptoms GI Symptoms None Last BM 06/23 Difficult in: None Usual diet at home From chart: Fibersource HN 60ml/hr x 20hr, providing 1440kcal, 65g protein. Skin Integrity/Comment: cellulitis at g-tube site reddened to buttock Estimated Nutritional Goals BEE in Kcals: Using Current wt Calories/Kcals/Kg 20-25 Kcals Calculated 6040-3051 Protein: Using Current wt Protein g/k Protein Calculated 61 Fluid: ml 1220-1525ml (1ml/kcal) Nutritional Problem 1. Problem Problem altered nutrition related labs Etiology electrolytes imbalanced, hx of ESRD Signs/Symptoms: Na 133, K 3.2, Cl 97, BUN 40 Intervention/Recommendation Comments 1. Monitor NPO status. 2. If tubefeeding needed, recommend fibersource HN 60ml/ hr x 20hr. This will provide 1440kcal and 65g protein, 972ml free water. 3. Monitor wt, labs and skin integrity 4. F/U as high risk in 2-3 days, 06/25-06/26 Expected Outcomes/Goals Expected Outcomes/Goals 1. Pt to meet at least 75% of nutritional needs via nutrition support with tolerance 2. Wt stability, skin to remain intact, labs to approach WNL.
--- NOTE | 2017-06-26 | Infectious Disease Prog Note ---
Infectious Disease Subjective - Review of Systems Service Date: 06/25/17 Subjective: there is no new change, no fever. Infectious Disease Objective - Results Result Diagrams: 06/26/17 09:00 06/26/17 09:00 Recent Labs: Laboratory Last Values WBC 6.6 Th/cmm (4.8-10.8) 06/25/17 07:36 RBC 2.48 Mil/cmm (3.80-5.80) L 06/25/17 07:36 Hgb 8.1 gm/dL (12-16) L 06/25/17 07:36 Hct 23.4 % (41.0-60) L 06/25/17 07:36 MCV 94.4 fl (80-99) 06/25/17 07:36 MCH 32.6 pg (27.0-31.0) H 06/25/17 07:36 MCHC Differential 34.5 pg (28.0-36.0) 06/25/17 07:36 RDW 21.8 % (11.5-20.0) H 06/25/17 07:36 Plt Count 263 Th/cmm (150-400) D 06/25/17 07:36 MPV 4.8 fl 06/25/17 07:36 Neutrophils % 75.2 % (40.0-80.0) 06/24/17 04:10 Band Neutrophils % 2 % (0-10) 06/25/17 07:36 Lymphocytes % 12.2 % (20.0-50.0) L 06/24/17 04:10 Monocytes % 3.6 % (2.0-10.0) 06/24/17 04:10 Eosinophils % 8.4 % (0.0-5.0) H 06/24/17 04:10 Basophils % 0.6 % (0.0-2.0) 06/24/17 04:10 Neutrophils (Manual) 70 % (40-80) 06/25/17 07:36 Lymphocytes 17 % (20-50) L 06/25/17 07:36 Monocytes 4 % (2-10) 06/25/17 07:36 Eosinophils 7 % (0-5) H 06/25/17 07:36 Basophils 0 % (0-3) 06/22/17 19:45 Metamyelocytes 1 % (0-0) H 06/22/17 19:45 Myelocytes 2 % 06/22/17 19:45 Platelet Estimate ADEQUATE (NORMAL) 06/23/17 04:20 Anisocytosis 1+ 06/25/17 07:36 PT 9.9 SECONDS (9.5-11.5) 06/22/17 19:45 INR 0.95 (0.5-1.4) 06/22/17 19:45 PTT (Actin FS) 24.3 SECONDS (26.0-38.0) L 06/22/17 19:45 Sodium 142 mEq/L (136-145) 06/25/17 04:15 Potassium 3.3 mEq/L (3.5-5.1) L 06/25/17 04:15 Chloride 111 mEq/L (98-107) H 06/25/17 04:15 Carbon Dioxide 21.3 mEq/L (21.0-31.0) 06/25/17 04:15 Anion Gap 13.0 (7.0-16.0) 06/25/17 04:15 BUN 25 mg/dL (7-25) 06/25/17 04:15 Creatinine 1.6 mg/dL (0.7-1.3) H 06/25/17 04:15 Est GFR ( Amer) 55.7 ml/min (>90) 06/25/17 04:15 Est GFR (Non-Af Amer) 46.1 ml/min 06/25/17 04:15 BUN/Creatinine Ratio 15.6 06/25/17 04:15 Glucose 173 mg/dL (70-105) H 06/25/17 04:15 POC Glucose 172 MG/DL (70 - 105) H 06/25/17 16:33 Whole Bld Lactic Acid 1.96 mmol/L (0.60-1.99) 06/22/17 19:45 Calcium 9.1 mg/dL (8.6-10.3) 06/25/17 04:15 Total Bilirubin 0.5 mg/dL (0.3-1.0) 06/25/17 04:15 AST 22 U/L (13-39) 06/25/17 04:15 ALT 32 U/L (7-52) 06/25/17 04:15 Alkaline Phosphatase 67 U/L (34-104) 06/25/17 04:15 Creatine Kinase 80 U/L (30-223) 06/22/17 19:45 Troponin I 0.01 ng/mL (0.01-0.05) 06/22/17 19:45 Total Protein 6.9 gm/dL (6.0-8.3) 06/25/17 04:15 Albumin 3.2 gm/dL (4.2-5.5) L 06/25/17 04:15 Globulin 3.7 gm/dL 06/25/17 04:15 Albumin/Globulin Ratio 0.9 (1.0-1.8) L 06/25/17 04:15 Urine Source CATH 06/22/17 19:30 Urine Color YELLOW 06/22/17 19:30 Urine Clarity CLOUDY (CLEAR) 06/22/17 19:30 Urine pH 7.5 (4.6 - 8.0) 06/22/17 19:30 Ur Specific [place] 1.015 (1.005-1.030) 06/22/17 19:30 Urine Protein 30 mg/dL (NEGATIVE) H 06/22/17 19:30 Urine Glucose (UA) NEGATIVE mg/dL (NEGATIVE) 06/22/17 19:30 Urine Ketones NEGATIVE mg/dL (NEGATIVE) 06/22/17 19:30 Urine Blood NEGATIVE (NEGATIVE) 06/22/17 19:30 Urine Nitrate POSITIVE (NEGATIVE) H 06/22/17 19:30 Urine Bilirubin NEGATIVE (NEGATIVE) 06/22/17 19:30 Urine Urobilinogen 0.2 E.U./dL (0.2 - 1.0) 06/22/17 19:30 Ur Leukocyte Esterase MODERATE (NEGATIVE) H 06/22/17 19:30 Urine RBC 0-2 /hpf (0-5) H 06/22/17 19:30 Urine WBC 6-10 /hpf (0-5) 06/22/17 19:30 Ur Epithelial Cells OCCASIONAL /lpf (FEW) 06/22/17 19:30 Urine Bacteria MANY /hpf (NONE SEEN) H 06/22/17 19:30 Vancomycin Trough 26.6 ug/mL (10-20) H 06/25/17 07:36 - Physical Exam Vitals and I&O: Vital Signs Temp 96.8 F 06/25/17 23:00 Pulse 89 03/24/18 23:00 Resp 19 06/25/17 23:00 BP 160/87 06/25/17 23:00 Pulse Ox 100 06/25/17 23:00 Intake & Output 06/25/17 06/25/17 06/26/17 06:59 18:59 06:59 Intake Total 1063.75 1402.5 Output Total 325 720 Balance 738.75 682.5 Weight (lbs) 60.781 kg 60.498 kg Intake: Intake, IV Amount 1063.75 1002.5 D5-0.9%Ns 1,000 ml @ 75 963.75 902.5 mls/hr IV .[id number] [facility] Rx #:[id number] Piperacillin Sodium/ 100 100 Tazobact 3.375 gm In Sodium Chloride 0.9% 50 ml @ 100 mls/hr IV Q6HR [facility] Rx#:[id number] Other 400 Output: Urine 325 720 Other: # Bowel Movements 1 Stool Characteristics Soft Liquid Brown Weight Source Bedscale Bedscale Active Medications: Current Medications Acetaminophen (Tylenol) 650 mg GT Q4HR PRN PRN Reason: Pain or Fever >101 Stop: 08/23/17 15:37 Last Admin: 06/25/17 16:15 Dose: 650 mg Albuterol/Ipratropium (Duoneb Neb) 3 ml HHN Q6HRT [facility] Stop: 08/22/17 00:59 Last Admin: 06/25/17 18:34 Dose: 3 ml Albuterol/Ipratropium (Duoneb Neb) 3 ml HHN Q2H PRN PRN Reason: Wheezing Stop: 08/21/17 22:41 Albuterol/Ipratropium (Duoneb Neb) 3 ml HHN Q2HR PRN PRN Reason: Shortness of Breath Stop: 08/23/17 15:37 Amiodarone HCl (Cordarone) 200 mg GT DAILY [facility] Stop: 08/24/17 08:59 Last Admin: 06/25/17 09:21 Dose: 200 mg Ascorbic Acid (Vitamin C) 500 mg PO DAILY [facility] Stop: 08/24/17 12:29 Last Admin: 06/25/17 12:20 Dose: 500 mg Chlorhexidine Gluconate (Peridex) 15 ml MM 0800,2000 [facility] Stop: 08/22/17 07:59 Last Admin: 06/25/17 20:31 Dose: 15 ml Docusate Sodium (Colace) 100 mg GT DAILY [facility] Stop: 08/24/17 08:59 Last Admin: 06/25/17 09:22 Dose: 100 mg Enalaprilat (Vasotec) 2.5 mg IVP Q6HR PRN PRN Reason: SBP>160 Stop: 08/25/17 00:00 Last Admin: 06/25/17 21:37 Dose: 2.5 mg Ferrous Sulfate (Iron) 300 mg GT DAILY [facility] Stop: 08/24/17 08:59 Last Admin: 06/25/17 09:22 Dose: 300 mg Folic Acid (Folate) 1 mg GT DAILY [facility] Stop: 08/24/17 08:59 Last Admin: 06/25/17 09:22 Dose: 1 mg Gentamicin Sulfate (Gentak 0.3% Ophth Soln) 1 drop RIGHT EYE Q6H [facility] Stop: 08/23/17 15:44 Last Admin: 06/25/17 21:46 Dose: Not Given Hydralazine HCl (Apresoline) 10 mg GT Q6H PRN PRN Reason: SBP ABOVE 160 Stop: 08/23/17 15:37 Last Admin: 06/25/17 17:45 Dose: 10 mg Piperacillin Sod/Tazobactam (Sod 3.375 gm/ Sodium Chloride) 50 mls @ 100 mls/ hr IV Q6HR [facility] Stop: 08/22/17 00:00 Last Admin: 06/25/17 23:51 Dose: 100 mls/hr Dextrose/Sodium Chloride (D5-0.9%Ns) 1,000 mls @ 75 mls/hr IV .[id number] [facility] Stop: 08/23/17 14:56 Last Admin: 06/25/17 17:44 Dose: 75 mls/hr Vancomycin HCl 1 gm/ Dextrose 250 mls @ 165 mls/hr IV Q24HR@1000 [facility] Stop: 08/25/17 09:59 Insulin Aspart (Novolog) 0 units SUBQ BIDAC [facility] PRN Reason: Protocol Stop: 08/23/17 16:29 Last Admin: 06/25/17 16:33 Dose: 2 units Levetiracetam (Keppra) 500 mg GT BID [facility] Stop: 08/23/17 16:59 Last Admin: 06/25/17 16:30 Dose: 500 mg Magnesium Hydroxide (Milk Of Magnesia) 30 ml GT BID PRN PRN Reason: Constipation Stop: 08/23/17 15:37 Metoclopramide HCl (Reglan) 5 mg GT Q6H PRN PRN Reason: gerd Stop: 08/23/17 15:37 Metoprolol Tartrate (Lopressor) 12.5 mg GT DAILY [facility] Stop: 08/24/17 08:59 Last Admin: 06/25/17 09:21 Dose: 12.5 mg Miscellaneous (Vancomycin Iv Per Pharmacy) 1 ea MC PRN PRN PRN Reason: PROTOCOL Stop: 08/21/17 22:36 Miscellaneous (Amikacin Sulfate [Amikacin Sulfate]) 450 mg IV Q36H PAO Stop: 08/23/17 15:44 Pantoprazole Sodium (Protonix) 40 mg IVP DAILY [facility] Stop: 08/24/17 08:59 Last Admin: 06/25/17 09:21 Dose: 40 mg Prednisone (Prednisone) 5 mg GT DAILY [facility] Stop: 08/24/17 08:59 Last Admin: 06/25/17 09:55 Dose: 5 mg - Procedures Procedures: Procedures Procedure Code Date BLOOD TRANSFUSION SERVICE 55889 05/17/17 RESPIRATORY VENTILATION, 24-96 CONSECUTIVE HOURS [id number] 06/22/17 TRANSFUSE NONAUT RED BLOOD CELLS IN PERIPH VEIN, PERC 73630F3 05/17/17 Infectious Disease Assmt/Plan - Assessment Assessment: 1. abdominal wall cellultis. 2. diabetes mellitus type 2 3. coronary artery disease 4. Status post cardiopulmonary arrest. 5. Vent-dependent respiratory failure. 6. Dysphagia and G-tube placement. 7. anoxic encephalopathy. 8. history of CHF. 9. Hypertension 10. asthma, COPD 11. PUD, GERD 14. seizure disorder. 15. right eye conjunctivitis. - Plan Plan: Continue the same treatment. D5NS for nutrition. Protonix iv for gi prophylaxis. Nutritional Asmnt/Malnutr-PDOC - Dietary Evaluation Malnutrition Findings (Please click <Entered> for more info): Nutritional Asmnt/Malnutrition Start: 06/23/17 14: 03 Text: Status: Complete Freq: Document 06/23/17 14:03 KEIRY (Rec: 06/23/17 14:26 [facility] Nutritional Asmnt/Malnutrition Patient General Information Nutritional Screening High Risk Diagnosis G-tube site cellulitis Pertinent Medical Hx/Surgical Hx HTN, DM, asthma/COPD, dyslipidemia, PUD/GERD, ESRD, arthritis, PEG/Gtube Subjective Information Pt seen on vent via trach. Current Diet Order/ Nutrition Support no diet order Pertinent Medications 06/23 Na 133, K 3.2, Cl 97, BUN 40, Cr 1.2, Glucose 90, CA 9. 9 Pertinent Labs piperacillin, vancomycin Nutritional Hx/Data Height 1.3 m Height (Calculated Centimeters) 129.5 Current Weight (lbs) 60.781 kg Weight (Calculated Kilograms) 60.8 Weight (Calculated Grams) 01675.4 Gordon Body Weight 82 Body Mass Index (BMI) 36.2 GI Symptoms GI Symptoms None Last BM 06/23 Difficult in: None Usual diet at home From chart: Fibersource HN 60ml/hr x 20hr, providing 1440kcal, 65g protein. Skin Integrity/Comment: cellulitis at g-tube site reddened to buttock Estimated Nutritional Goals BEE in Kcals: Using Current wt Calories/Kcals/Kg 20-25 Kcals Calculated 1829-9212 Protein: Using Current wt Protein g/k Protein Calculated 61 Fluid: ml 1220-1525ml (1ml/kcal) Nutritional Problem 1. Problem Problem altered nutrition related labs Etiology electrolytes imbalanced, hx of ESRD Signs/Symptoms: Na 133, K 3.2, Cl 97, BUN 40 Intervention/Recommendation Comments 1. Monitor NPO status. 2. If tubefeeding needed, recommend fibersource HN 60ml/ hr x 20hr. This will provide 1440kcal and 65g protein, 972ml free water. 3. Monitor wt, labs and skin integrity 4. F/U as high risk in 2-3 days, 06/25-06/26 Expected Outcomes/Goals Expected Outcomes/Goals 1. Pt to meet at least 75% of nutritional needs via nutrition support with tolerance 2. Wt stability, skin to remain intact, labs to approach WNL.
[2017-06-26] MEDS: Albuterol/Ipratropium Neb 3 ML AERS HHN SCH ×4 (01:06→19:19)
[2017-06-26] MEDS: Gentamicin 0.3% Ophth Soln 5mL Bottle RIGHT EYE SCH ×4 (03:08→21:38)
--- NOTE | 2017-06-26 05:05 | Consultation ---
DATE OF CONSULTATION: 06/25/2017 PATIENT OF: Dr. Ochoa. Thank you very much Dr. Ochoa for this consultation. HISTORY OF PRESENT ILLNESS: This is a 66-year-old male with history of chronic respiratory failure, ventilator dependent assist with tracheostomy, who was transferred here for G-tube site cellulitis, was admitted for treatment and management. The patient is n.p.o., placed on antibiotics and IV fluids. He is on a ventilator, not communicative, not responsive, appears to be doing comfortably well with ventilator with the current settings. OTHER PAST MEDICAL HISTORY: As above. Hypertension, cardiac arrhythmias. SOCIAL HISTORY: Not available. PHYSICAL EXAMINATION: GENERAL: Obtunded, not in acute distress. VITAL SIGNS: Temperature is 96.4, pulse 76, respiration 17, blood pressure 142/70, O2 saturation 100%. HEENT: Atraumatic, normocephalic. Pupils react to light and accommodation. Ears, nose and throat normal. NECK: Supple. No JVD. CHEST: There are good breath sounds. No wheezing or crackles. HEART: Regular rate and rhythm. ABDOMEN: Soft. EXTREMITIES: No edema. LABORATORY DATA: WBC 6.6, hemoglobin 8.1, hematocrit 23.4, platelets 263. Sodium 142, potassium 3.3, BUN 25, creatinine 1.6. Chest x-ray showed no acute infiltrate. Urine culture shows Pseudomonas. Sputum culture is some gram-negative rods. IMPRESSION: This is a 66-year-old male with, 1. Respiratory failure. 2. Urinary tract infection. 3. Gastric tube cellulitis. PLAN: 1. Continue ventilator support. 2. Antibiotics. 3. Follow up cultures and supportive care. JOB# [id number]
[2017-06-26 06:24] LABS: WHITE BLOOD COUNT 5.7 Th/cmm (4.8-10.8)
[2017-06-26 06:38] LABS: ANION GAP 11.2 (7.0-16.0); BUN - UREA NITROGEN 18 mg/dL (7-25); CALCIUM SERUM 9.2 mg/dL (8.6-10.3); CARBON DIOXIDE 20.2 mEq/L (21.0-31.0); CHLORIDE 115 mEq/L (98-107); CREATININE - SERUM 1.4 mg/dL (0.7-1.3); GFR AFRICAN-AMERICAN > 60.0 ml/min (>90); GFR NON AFRICAN-AMERICAN 53.7 ml/min; GLUCOSE 111 mg/dL (70-105); MEAN CELL VOLUME 94.6 fl (80-99); MEAN CORPUSCULAR HEMOGLOBIN 32.5 pg (27.0-31.0); MEAN CORPUSCULAR HGB CONC 34.3 pg (28.0-36.0); MEAN PLATELET VOLUME 5.3 fl; PLATELET COUNT 242 Th/cmm (150-400); POTASSIUM SERUM 3.4 mEq/L (3.5-5.1); RED BLOOD COUNT 2.09 Mil/cmm (3.80-5.80); RED CELL DISTRIBUTION WIDTH 21.8 % (11.5-20.0); SODIUM SERUM 143 mEq/L (136-145)
[2017-06-26 06:57] LABS: HEMATOCRIT 19.8 % (41.0-60)
[2017-06-26 06:59] LABS: MANUAL DIFF REQUIRED? YES
[2017-06-26 07:01] LABS: HEMOGLOBIN 6.8 gm/dL (12-16)
[2017-06-26] MEDS: INSULIN ASPART, RECOMBINANT 100 UNITS/ML SUBQ SCH ×2 (07:11→16:50)
[2017-06-26 07:30] LABS: NEUTROPHILS 67 % (40-80); TOTAL CELLS COUNTED 100
[2017-06-26 07:31] LABS: ANISOCYTOSIS 1+
[2017-06-26 07:32] LABS: EOSINOPHIL 7 % (0-5); LYMPHOCYTE 21 % (20-50); MONOCYTE 5 % (2-10)
[2017-06-26] MEDS: Chlorhexidine Gluconate 0.12% 15mL Mouthwash MM SCH ×2 (08:35→21:37)
[2017-06-26] MEDS: Docusate Sodium 100 mg/10 mL UD GT SCH (09:10)
[2017-06-26] MEDS: Ferrous Sulfate 300 MG/5 ML UDC GT SCH (09:10)
[2017-06-26] MEDS: Levetiracetam 500 mg/5mL 5mL UDSyr *for ORAL USE ONLY GT SCH ×2 (09:12→16:43)
[2017-06-26] MEDS: Multivitamin w/ Minerals Tab GT SCH (09:13)
[2017-06-26] MEDS: D5-0.9%NS 1,000 ML IV SCH (09:14)
[2017-06-26] MEDS: predniSONE 5 mg/5 mL UDC GT SCH (09:15)
[2017-06-26 09:20] LABS: ANION GAP 11.7 (7.0-16.0); BUN - UREA NITROGEN 17 mg/dL (7-25); CALCIUM SERUM 9.1 mg/dL (8.6-10.3); CARBON DIOXIDE 20.7 mEq/L (21.0-31.0); CHLORIDE 113 mEq/L (98-107); CREATININE - SERUM 1.4 mg/dL (0.7-1.3); GFR AFRICAN-AMERICAN > 60.0 ml/min (>90); GFR NON AFRICAN-AMERICAN 53.7 ml/min; GLUCOSE 128 mg/dL (70-105); POTASSIUM SERUM 3.4 mEq/L (3.5-5.1); SODIUM SERUM 142 mEq/L (136-145)
[2017-06-26 09:26] LABS: MEAN CELL VOLUME 94.6 fl (80-99); MEAN CORPUSCULAR HEMOGLOBIN 32.9 pg (27.0-31.0); MEAN CORPUSCULAR HGB CONC 34.8 pg (28.0-36.0); MEAN PLATELET VOLUME 5.3 fl; PLATELET COUNT 247 Th/cmm (150-400); RED BLOOD COUNT 2.18 Mil/cmm (3.80-5.80); RED CELL DISTRIBUTION WIDTH 21.3 % (11.5-20.0); WHITE BLOOD COUNT 5.1 Th/cmm (4.8-10.8)
[2017-06-26 09:28] LABS: HEMATOCRIT 20.6 % (41.0-60); HEMOGLOBIN 7.2 gm/dL (12-16); MANUAL DIFF REQUIRED? YES
[2017-06-26 09:43] LABS: ANISOCYTOSIS 1+; BAND NEUTROPHILE 1 % (0-10); EOSINOPHIL 8 % (0-5); LYMPHOCYTE 23 % (20-50); MONOCYTE 5 % (2-10); NEUTROPHILS 63 % (40-80); TOTAL CELLS COUNTED 100
--- NOTE | 2017-06-26 10:27 | General Progress Note ---
Subjective - Review of Systems Events since last encounter: no distress no change Objective - Results Result Diagrams: 06/26/17 09:00 06/26/17 09:00 Recent Labs: Laboratory Last Values WBC 5.1 Th/cmm (4.8-10.8) 06/26/17 09:00 RBC 2.18 Mil/cmm (3.80-5.80) L 06/26/17 09:00 Hgb 7.2 gm/dL (12-16) L* 06/26/17 09:00 Hct 20.6 % (41.0-60) L* 06/26/17 09:00 MCV 94.6 fl (80-99) 06/26/17 09:00 MCH 32.9 pg (27.0-31.0) H 06/26/17 09:00 MCHC Differential 34.8 pg (28.0-36.0) 06/26/17 09:00 RDW 21.3 % (11.5-20.0) H 06/26/17 09:00 Plt Count 247 Th/cmm (150-400) 06/26/17 09:00 MPV 5.3 fl 06/26/17 09:00 Neutrophils % 75.2 % (40.0-80.0) 06/24/17 04:10 Band Neutrophils % 1 % (0-10) 06/26/17 09:00 Lymphocytes % 12.2 % (20.0-50.0) L 06/24/17 04:10 Monocytes % 3.6 % (2.0-10.0) 06/24/17 04:10 Eosinophils % 8.4 % (0.0-5.0) H 06/24/17 04:10 Basophils % 0.6 % (0.0-2.0) 06/24/17 04:10 Neutrophils (Manual) 63 % (40-80) 06/26/17 09:00 Lymphocytes 23 % (20-50) 06/26/17 09:00 Monocytes 5 % (2-10) 06/26/17 09:00 Eosinophils 8 % (0-5) H 06/26/17 09:00 Basophils 0 % (0-3) 06/22/17 19:45 Metamyelocytes 1 % (0-0) H 06/22/17 19:45 Myelocytes 2 % 06/22/17 19:45 Platelet Estimate ADEQUATE (NORMAL) 06/23/17 04:20 Anisocytosis 1+ 06/26/17 09:00 PT 9.9 SECONDS (9.5-11.5) 06/22/17 19:45 INR 0.95 (0.5-1.4) 06/22/17 19:45 PTT (Actin FS) 24.3 SECONDS (26.0-38.0) L 06/22/17 19:45 Sodium 142 mEq/L (136-145) 06/26/17 09:00 Potassium 3.4 mEq/L (3.5-5.1) L 06/26/17 09:00 Chloride 113 mEq/L (98-107) H 06/26/17 09:00 Carbon Dioxide 20.7 mEq/L (21.0-31.0) L 06/26/17 09:00 Anion Gap 11.7 (7.0-16.0) 06/26/17 09:00 BUN 17 mg/dL (7-25) 06/26/17 09:00 Creatinine 1.4 mg/dL (0.7-1.3) H 06/26/17 09:00 Est GFR ( Amer) > 60.0 ml/min (>90) 06/26/17 09:00 Est GFR (Non-Af Amer) 53.7 ml/min 06/26/17 09:00 BUN/Creatinine Ratio 12.1 06/26/17 09:00 Glucose 128 mg/dL (70-105) H 06/26/17 09:00 POC Glucose 115 MG/DL (70 - 105) H 06/26/17 06:54 Whole Bld Lactic Acid 1.96 mmol/L (0.60-1.99) 06/22/17 19:45 Calcium 9.1 mg/dL (8.6-10.3) 06/26/17 09:00 Total Bilirubin 0.5 mg/dL (0.3-1.0) 06/25/17 04:15 AST 22 U/L (13-39) 06/25/17 04:15 ALT 32 U/L (7-52) 06/25/17 04:15 Alkaline Phosphatase 67 U/L (34-104) 06/25/17 04:15 Creatine Kinase 80 U/L (30-223) 06/22/17 19:45 Troponin I 0.01 ng/mL (0.01-0.05) 06/22/17 19:45 Total Protein 6.9 gm/dL (6.0-8.3) 06/25/17 04:15 Albumin 3.2 gm/dL (4.2-5.5) L 06/25/17 04:15 Globulin 3.7 gm/dL 06/25/17 04:15 Albumin/Globulin Ratio 0.9 (1.0-1.8) L 06/25/17 04:15 Urine Source CATH 06/22/17 19:30 Urine Color YELLOW 06/22/17 19:30 Urine Clarity CLOUDY (CLEAR) 06/22/17 19:30 Urine pH 7.5 (4.6 - 8.0) 06/22/17 19:30 Ur Specific [place] 1.015 (1.005-1.030) 06/22/17 19:30 Urine Protein 30 mg/dL (NEGATIVE) H 06/22/17 19:30 Urine Glucose (UA) NEGATIVE mg/dL (NEGATIVE) 06/22/17 19:30 Urine Ketones NEGATIVE mg/dL (NEGATIVE) 06/22/17 19:30 Urine Blood NEGATIVE (NEGATIVE) 06/22/17 19:30 Urine Nitrate POSITIVE (NEGATIVE) H 06/22/17 19:30 Urine Bilirubin NEGATIVE (NEGATIVE) 06/22/17 19:30 Urine Urobilinogen 0.2 E.U./dL (0.2 - 1.0) 06/22/17 19:30 Ur Leukocyte Esterase MODERATE (NEGATIVE) H 06/22/17 19:30 Urine RBC 0-2 /hpf (0-5) H 06/22/17 19:30 Urine WBC 6-10 /hpf (0-5) 06/22/17 19:30 Ur Epithelial Cells OCCASIONAL /lpf (FEW) 06/22/17 19:30 Urine Bacteria MANY /hpf (NONE SEEN) H 06/22/17 19:30 Vancomycin Trough 26.6 ug/mL (10-20) H 06/25/17 07:36 - Physical Exam Vitals and I&O: Vital Signs Temp 97.5 F 06/26/17 06:00 Pulse 91 06/26/17 09:40 Resp 19 06/26/17 06:00 BP 174/78 06/26/17 09:13 Pulse Ox 100 06/26/17 09:40 Intake & Output 06/25/17 06/26/17 06/26/17 18:59 06:59 18:59 Intake Total 1402.5 200 1000 Output Total 720 700 Balance 682.5 -500 1000 Weight (lbs) 60.498 kg 59.33 kg Intake: Intake, IV Amount 1002.5 100 1000 D5-0.9%Ns 1,000 ml @ 75 902.5 1000 mls/hr IV .[id number] [facility] Rx #:[id number] Piperacillin Sodium/ 100 100 Tazobact 3.375 gm In Sodium Chloride 0.9% 50 ml @ 100 mls/hr IV Q6HR [facility] Rx#:[id number] Other 400 100 Output: Urine 720 700 Other: # Bowel Movements 1 0 Stool Characteristics Soft Liquid Brown Weight Source Bedscale Bedscale Active Medications: Current Medications Acetaminophen (Tylenol) 650 mg GT Q4HR PRN PRN Reason: Pain or Fever >101 Stop: 08/23/17 15:37 Last Admin: 06/25/17 16:15 Dose: 650 mg Albuterol/Ipratropium (Duoneb Neb) 3 ml HHN Q6HRT [facility] Stop: 08/22/17 00:59 Last Admin: 06/26/17 07:23 Dose: 3 ml Albuterol/Ipratropium (Duoneb Neb) 3 ml HHN Q2H PRN PRN Reason: Wheezing Stop: 08/21/17 22:41 Albuterol/Ipratropium (Duoneb Neb) 3 ml HHN Q2HR PRN PRN Reason: Shortness of Breath Stop: 08/23/17 15:37 Amiodarone HCl (Cordarone) 200 mg GT DAILY [facility] Stop: 08/24/17 08:59 Last Admin: 06/26/17 09:13 Dose: 200 mg Ascorbic Acid (Vitamin C) 500 mg PO DAILY [facility] Stop: 08/24/17 12:29 Last Admin: 06/26/17 09:12 Dose: 500 mg Chlorhexidine Gluconate (Peridex) 15 ml MM 0800,2000 [facility] Stop: 08/22/17 07:59 Last Admin: 06/26/17 08:35 Dose: 15 ml Docusate Sodium (Colace) 100 mg GT DAILY [facility] Stop: 08/24/17 08:59 Last Admin: 06/26/17 09:10 Dose: 100 mg Enalaprilat (Vasotec) 2.5 mg IVP Q6HR PRN PRN Reason: SBP>160 Stop: 08/25/17 00:00 Last Admin: 06/26/17 03:51 Dose: 2.5 mg Ferrous Sulfate (Iron) 300 mg GT DAILY [facility] Stop: 08/24/17 08:59 Last Admin: 06/26/17 09:10 Dose: 300 mg Folic Acid (Folate) 1 mg GT DAILY [facility] Stop: 08/24/17 08:59 Last Admin: 06/26/17 09:13 Dose: 1 mg Gentamicin Sulfate (Gentak 0.3% Oph Soln) 1 drop RIGHT EYE Q6H [facility] Stop: 08/23/17 15:44 Last Admin: 06/26/17 09:32 Dose: 1 drop Hydralazine HCl (Apresoline) 10 mg GT Q6H PRN PRN Reason: SBP ABOVE 160 Stop: 08/23/17 15:37 Last Admin: 06/26/17 05:43 Dose: 10 mg Piperacillin Sod/Tazobactam (Sod 3.375 gm/ Sodium Chloride) 50 mls @ 100 mls/ hr IV Q6HR [facility] Stop: 08/22/17 00:00 Last Infusion: 06/26/17 06:10 Dose: Infused Dextrose/Sodium Chloride (D5-0.9%Ns) 1,000 mls @ 75 mls/hr IV .[id number] [facility] Stop: 08/23/17 14:56 Last Admin: 06/26/17 09:14 Dose: 75 mls/hr Vancomycin HCl 1 gm/ Dextrose 250 mls @ 165 mls/hr IV Q24HR@1000 [facility] Stop: 08/25/17 09:59 Last Admin: 06/26/17 09:23 Dose: 165 mls/hr Insulin Aspart (Novolog) 0 units SUBQ BIDAC PAO PRN Reason: Protocol Stop: 08/23/17 16:29 Last Admin: 06/26/17 07:11 Dose: Not Given Levetiracetam (Keppra) 500 mg GT BID [facility] Stop: 08/23/17 16:59 Last Admin: 06/26/17 09:12 Dose: 500 mg Magnesium Hydroxide (Milk Of Magnesia) 30 ml GT BID PRN PRN Reason: Constipation Stop: 08/23/17 15:37 Metoclopramide HCl (Reglan) 5 mg GT Q6H PRN PRN Reason: gerd Stop: 08/23/17 15:37 Metoprolol Tartrate (Lopressor) 12.5 mg GT DAILY [facility] Stop: 08/24/17 08:59 Last Admin: 06/26/17 09:13 Dose: 12.5 mg Miscellaneous (Vancomycin Iv Per Pharmacy) 1 ea [facility] PRN PRN PRN Reason: PROTOCOL Stop: 08/21/17 22:36 Miscellaneous (Amikacin Sulfate [Amikacin Sulfate]) 450 mg IV Q36H [facility] Stop: 08/23/17 15:44 Pantoprazole Sodium (Protonix) 40 mg IVP DAILY [facility] Stop: 08/24/17 08:59 Last Admin: 06/26/17 09:11 Dose: 40 mg Prednisone (Prednisone) 5 mg GT DAILY [facility] Stop: 08/24/17 08:59 Last Admin: 06/26/17 09:15 Dose: 5 mg - Procedures Procedures: Procedures Procedure Code Date BLOOD TRANSFUSION SERVICE 39941 05/17/17 RESPIRATORY VENTILATION, 24-96 CONSECUTIVE HOURS [id number] 06/22/17 TRANSFUSE NONAUT RED BLOOD CELLS IN PERIPH VEIN, PERC 46538T4 05/17/17 Nutritional Asmnt/Malnutr-PDOC - Dietary Evaluation Malnutrition Findings (Please click <Entered> for more info): Nutritional Asmnt/Malnutrition Start: 06/23/17 14: 03 Text: Status: Complete Freq: Document 06/23/17 14:03 DARREN (Rec: 06/23/17 14:26 [facility] Nutritional Asmnt/Malnutrition Patient General Information Nutritional Screening High Risk Diagnosis G-tube site cellulitis Pertinent Medical Hx/Surgical Hx HTN, DM, asthma/COPD, dyslipidemia, PUD/GERD, ESRD, arthritis, PEG/Gtube Subjective Information Pt seen on vent via trach. Current Diet Order/ Nutrition Support no diet order Pertinent Medications 06/23 Na 133, K 3.2, Cl 97, BUN 40, Cr 1.2, Glucose 90, CA 9. 9 Pertinent Labs piperacillin, vancomycin Nutritional Hx/Data Height 1.3 m Height (Calculated Centimeters) 129.5 Current Weight (lbs) 60.781 kg Weight (Calculated Kilograms) 60.8 Weight (Calculated Grams) 53817.4 [place] Body Weight 82 Body Mass Index (BMI) 36.2 GI Symptoms GI Symptoms None Last BM 06/23 Difficult in: None Usual diet at home From chart: Fibersource HN 60ml/hr x 20hr, providing 1440kcal, 65g protein. Skin Integrity/Comment: cellulitis at g-tube site reddened to buttock Estimated Nutritional Goals BEE in Kcals: Using Current wt Calories/Kcals/Kg 20-25 Kcals Calculated 5973-9413 Protein: Using Current wt Protein g/k Protein Calculated 61 Fluid: ml 1220-1525ml (1ml/kcal) Nutritional Problem 1. Problem Problem altered nutrition related labs Etiology electrolytes imbalanced, hx of ESRD Signs/Symptoms: Na 133, K 3.2, Cl 97, BUN 40 Intervention/Recommendation Comments 1. Monitor NPO status. 2. If tubefeeding needed, recommend fibersource HN 60ml/ hr x 20hr. This will provide 1440kcal and 65g protein, 972ml free water. 3. Monitor wt, labs and skin integrity 4. F/U as high risk in 2-3 days, 06/25-06/26 Expected Outcomes/Goals Expected Outcomes/Goals 1. Pt to meet at least 75% of nutritional needs via nutrition support with tolerance 2. Wt stability, skin to remain intact, labs to approach WNL.
[2017-06-26] MEDS ORDERED: KCL 20mEq/100mL Premix 20 MEQ/100 ML PIGGYBACK IV ONE (10:29)
--- NOTE | 2017-06-26 23:44 | Infectious Disease Prog Note ---
Infectious Disease Subjective - Review of Systems Service Date: 06/26/17 Subjective: there is no new change, no fever. Infectious Disease Objective - Results Result Diagrams: 06/26/17 09:00 06/26/17 09:00 Recent Labs: Laboratory Last Values WBC 5.1 Th/cmm (4.8-10.8) 06/26/17 09:00 RBC 2.18 Mil/cmm (3.80-5.80) L 06/26/17 09:00 Hgb 7.2 gm/dL (12-16) L* 06/26/17 09:00 Hct 20.6 % (41.0-60) L* 06/26/17 09:00 MCV 94.6 fl (80-99) 06/26/17 09:00 MCH 32.9 pg (27.0-31.0) H 06/26/17 09:00 MCHC Differential 34.8 pg (28.0-36.0) 06/26/17 09:00 RDW 21.3 % (11.5-20.0) H 06/26/17 09:00 Plt Count 247 Th/cmm (150-400) 06/26/17 09:00 MPV 5.3 fl 06/26/17 09:00 Neutrophils % 75.2 % (40.0-80.0) 06/24/17 04:10 Band Neutrophils % 1 % (0-10) 06/26/17 09:00 Lymphocytes % 12.2 % (20.0-50.0) L 06/24/17 04:10 Monocytes % 3.6 % (2.0-10.0) 06/24/17 04:10 Eosinophils % 8.4 % (0.0-5.0) H 06/24/17 04:10 Basophils % 0.6 % (0.0-2.0) 06/24/17 04:10 Neutrophils (Manual) 63 % (40-80) 06/26/17 09:00 Lymphocytes 23 % (20-50) 06/26/17 09:00 Monocytes 5 % (2-10) 06/26/17 09:00 Eosinophils 8 % (0-5) H 06/26/17 09:00 Basophils 0 % (0-3) 06/22/17 19:45 Metamyelocytes 1 % (0-0) H 06/22/17 19:45 Myelocytes 2 % 06/22/17 19:45 Platelet Estimate ADEQUATE (NORMAL) 06/23/17 04:20 Anisocytosis 1+ 06/26/17 09:00 PT 9.9 SECONDS (9.5-11.5) 06/22/17 19:45 INR 0.95 (0.5-1.4) 06/22/17 19:45 PTT (Actin FS) 24.3 SECONDS (26.0-38.0) L 06/22/17 19:45 Sodium 142 mEq/L (136-145) 06/26/17 09:00 Potassium 3.4 mEq/L (3.5-5.1) L 06/26/17 09:00 Chloride 113 mEq/L (98-107) H 06/26/17 09:00 Carbon Dioxide 20.7 mEq/L (21.0-31.0) L 06/26/17 09:00 Anion Gap 11.7 (7.0-16.0) 06/26/17 09:00 BUN 17 mg/dL (7-25) 06/26/17 09:00 Creatinine 1.4 mg/dL (0.7-1.3) H 06/26/17 09:00 Est GFR ( Amer) > 60.0 ml/min (>90) 06/26/17 09:00 Est GFR (Non-Af Amer) 53.7 ml/min 06/26/17 09:00 BUN/Creatinine Ratio 12.1 06/26/17 09:00 Glucose 128 mg/dL (70-105) H 06/26/17 09:00 POC Glucose 118 MG/DL (70 - 105) H 06/26/17 16:49 Whole Bld Lactic Acid 1.96 mmol/L (0.60-1.99) 06/22/17 19:45 Calcium 9.1 mg/dL (8.6-10.3) 06/26/17 09:00 Total Bilirubin 0.5 mg/dL (0.3-1.0) 06/25/17 04:15 AST 22 U/L (13-39) 06/25/17 04:15 ALT 32 U/L (7-52) 06/25/17 04:15 Alkaline Phosphatase 67 U/L (34-104) 06/25/17 04:15 Creatine Kinase 80 U/L (30-223) 06/22/17 19:45 Troponin I 0.01 ng/mL (0.01-0.05) 06/22/17 19:45 Total Protein 6.9 gm/dL (6.0-8.3) 06/25/17 04:15 Albumin 3.2 gm/dL (4.2-5.5) L 06/25/17 04:15 Globulin 3.7 gm/dL 06/25/17 04:15 Albumin/Globulin Ratio 0.9 (1.0-1.8) L 06/25/17 04:15 Urine Source CATH 06/22/17 19:30 Urine Color YELLOW 06/22/17 19:30 Urine Clarity CLOUDY (CLEAR) 06/22/17 19:30 Urine pH 7.5 (4.6 - 8.0) 06/22/17 19:30 Ur Specific [place] 1.015 (1.005-1.030) 06/22/17 19:30 Urine Protein 30 mg/dL (NEGATIVE) H 06/22/17 19:30 Urine Glucose (UA) NEGATIVE mg/dL (NEGATIVE) 06/22/17 19:30 Urine Ketones NEGATIVE mg/dL (NEGATIVE) 06/22/17 19:30 Urine Blood NEGATIVE (NEGATIVE) 06/22/17 19:30 Urine Nitrate POSITIVE (NEGATIVE) H 06/22/17 19:30 Urine Bilirubin NEGATIVE (NEGATIVE) 06/22/17 19:30 Urine Urobilinogen 0.2 E.U./dL (0.2 - 1.0) 06/22/17 19:30 Ur Leukocyte Esterase MODERATE (NEGATIVE) H 06/22/17 19:30 Urine RBC 0-2 /hpf (0-5) H 06/22/17 19:30 Urine WBC 6-10 /hpf (0-5) 06/22/17 19:30 Ur Epithelial Cells OCCASIONAL /lpf (FEW) 06/22/17 19:30 Urine Bacteria MANY /hpf (NONE SEEN) H 06/22/17 19:30 Stool Occult Blood NEGATIVE (NEGATIVE) 06/26/17 17:05 Vancomycin Trough 26.6 ug/mL (10-20) H 06/25/17 07:36 Blood Type O POSITIVE 06/26/17 11:10 Antibody Screen NEGATIVE 06/26/17 11:10 Crossmatch See Detail 06/26/17 11:10 - Physical Exam Vitals and I&O: Vital Signs Temp 98.8 F 06/26/17 21:00 Pulse 61 06/26/17 23:25 Resp 16 06/26/17 21:00 BP 156/77 06/26/17 21:00 Pulse Ox 100 06/26/17 23:25 Intake & Output 06/26/17 06/26/17 06/27/17 06:59 18:59 06:59 Intake Total 200 2180 Output Total 700 720 Balance -500 1460 Weight (lbs) 59.33 kg 59.222 kg Intake: Intake, IV Amount 100 1350 D5-0.9%Ns 1,000 ml @ 75 1000 mls/hr IV .[id number] [facility] Rx #:[id number] Piperacillin Sodium/ 100 100 Tazobact 3.375 gm In Sodium Chloride 0.9% 50 ml @ 100 mls/hr IV Q6HR [facility] Rx#:[id number] Vancomycin HCl 1 gm In 250 Dextrose 5% 250 ml @ 165 mls/hr IV Q24HR@1000 [facility] Rx#:[id number] Tube Feeding 270 Blood Product 250 Other 100 310 Output: Urine 700 720 Other: # Bowel Movements 0 1 Weight Source Bedscale Bedscale Active Medications: Current Medications Acetaminophen (Tylenol) 650 mg GT Q4HR PRN PRN Reason: Pain or Fever >101 Stop: 08/23/17 15:37 Last Admin: 06/26/17 16:43 Dose: 650 mg Albuterol/Ipratropium (Duoneb Neb) 3 ml HHN Q6HRT [facility] Stop: 08/22/17 00:59 Last Admin: 06/26/17 19:19 Dose: 3 ml Albuterol/Ipratropium (Duoneb Neb) 3 ml HHN Q2H PRN PRN Reason: Wheezing Stop: 08/21/17 22:41 Albuterol/Ipratropium (Duoneb Neb) 3 ml HHN Q2HR PRN PRN Reason: Shortness of Breath Stop: 08/23/17 15:37 Amiodarone HCl (Cordarone) 200 mg GT DAILY [facility] Stop: 08/24/17 08:59 Last Admin: 06/26/17 09:13 Dose: 200 mg Ascorbic Acid (Vitamin C) 500 mg PO DAILY [facility] Stop: 08/24/17 12:29 Last Admin: 06/26/17 09:12 Dose: 500 mg Chlorhexidine Gluconate (Peridex) 15 ml MM 0800,1999 [facility] Stop: 08/22/17 07:59 Last Admin: 06/26/17 21:37 Dose: 15 ml Docusate Sodium (Colace) 100 mg GT DAILY [facility] Stop: 08/24/17 08:59 Last Admin: 06/26/17 09:10 Dose: 100 mg Enalaprilat (Vasotec) 2.5 mg IVP Q6HR PRN PRN Reason: SBP>160 Stop: 08/25/17 00:00 Last Admin: 06/26/17 11:00 Dose: 2.5 mg Ferrous Sulfate (Iron) 300 mg GT DAILY [facility] Stop: 08/24/17 08:59 Last Admin: 06/26/17 09:10 Dose: 300 mg Folic Acid (Folate) 1 mg GT DAILY [facility] Stop: 08/24/17 08:59 Last Admin: 06/26/17 09:13 Dose: 1 mg Gentamicin Sulfate (Gentak 0.3% Ophth Soln) 1 drop RIGHT EYE Q6H [facility] Stop: 08/23/17 15:44 Last Admin: 06/26/17 21:38 Dose: 1 drop Hydralazine HCl (Apresoline) 10 mg GT Q6H PRN PRN Reason: SBP ABOVE 160 Stop: 08/23/17 15:37 Last Admin: 06/26/17 16:44 Dose: 10 mg Piperacillin Sod/Tazobactam (Sod 3.375 gm/ Sodium Chloride) 50 mls @ 100 mls/ hr IV Q6HR [facility] Stop: 08/22/17 00:00 Last Infusion: 06/26/17 17:35 Dose: Infused Dextrose/Sodium Chloride (D5-0.9%Ns) 1,000 mls @ 75 mls/hr IV .[id number] [facility] Stop: 08/23/17 14:56 Last Admin: 06/26/17 09:14 Dose: 75 mls/hr Vancomycin HCl 1 gm/ Dextrose 250 mls @ 165 mls/hr IV Q24HR@1000 [facility] Stop: 08/25/17 09:59 Last Infusion: 06/26/17 10:55 Dose: Infused Insulin Aspart (Novolog) 0 units SUBQ BIDAC [facility] PRN Reason: Protocol Stop: 08/23/17 16:29 Last Admin: 06/26/17 16:50 Dose: Not Given Levetiracetam (Keppra) 500 mg GT BID [facility] Stop: 08/23/17 16:59 Last Admin: 06/26/17 16:43 Dose: 500 mg Magnesium Hydroxide (Milk Of Magnesia) 30 ml GT BID PRN PRN Reason: Constipation Stop: 08/23/17 15:37 Metoclopramide HCl (Reglan) 5 mg GT Q6H PRN PRN Reason: gerd Stop: 08/23/17 15:37 Metoprolol Tartrate (Lopressor) 12.5 mg GT DAILY [facility] Stop: 08/24/17 08:59 Last Admin: 06/26/17 09:13 Dose: 12.5 mg Miscellaneous (Vancomycin Iv Per Pharmacy) 1 ea [facility] PRN PRN PRN Reason: PROTOCOL Stop: 08/21/17 22:36 Miscellaneous (Amikacin Sulfate [Amikacin Sulfate]) 450 mg IV Q36H [facility] Stop: 08/23/17 15:44 Pantoprazole Sodium (Protonix) 40 mg IVP DAILY [facility] Stop: 08/24/17 08:59 Last Admin: 06/26/17 09:11 Dose: 40 mg Prednisone (Prednisone) 5 mg GT DAILY [facility] Stop: 08/24/17 08:59 Last Admin: 06/26/17 09:15 Dose: 5 mg General: no acute distress, well developed, well nourished HEENT: atraumatic, normocephalic, PERRLA, EOMI Neck: supple, no thyromegaly Cardiovascular: S1S2, regular Lungs: clear to auscultation bilaterally, clear to percussion Abdomen: soft, no tender, no distended, no hepatomegaly, no splenomegaly Extremities: no cyanosis, no clubbing, no edema - Procedures Procedures: Procedures Procedure Code Date BLOOD TRANSFUSION SERVICE 93797 05/17/17 RESPIRATORY VENTILATION, 24-96 CONSECUTIVE HOURS [id number] 06/22/17 TRANSFUSE NONAUT RED BLOOD CELLS IN PERIPH VEIN, PERC 98592N4 05/17/17 Infectious Disease Assmt/Plan - Assessment Assessment: 1. abdominal wall cellultis. 2. diabetes mellitus type 2 3. coronary artery disease 4. Status post cardiopulmonary arrest. 5. Vent-dependent respiratory failure. 6. Dysphagia and G-tube placement. 7. anoxic encephalopathy. 8. history of CHF. 9. Hypertension 10. asthma, COPD 11. PUD, GERD 14. seizure disorder. 15. right eye conjunctivitis. - Plan Plan: Continue the same treatment. D5NS for nutrition. Protonix iv for gi prophylaxis. Nutritional Asmnt/Malnutr-PDOC - Dietary Evaluation Malnutrition Findings (Please click <Entered> for more info): Nutritional Asmnt/Malnutrition Start: 06/23/17 14: 03 Text: Status: Complete Freq: Document 06/23/17 14:03 [facility] (Rec: 06/23/17 14:26 [facility]-[email or web address]) Nutritional Asmnt/Malnutrition Patient General Information Nutritional Screening High Risk Diagnosis G-tube site cellulitis Pertinent Medical Hx/Surgical Hx HTN, DM, asthma/COPD, dyslipidemia, PUD/GERD, ESRD, arthritis, PEG/Gtube Subjective Information Pt seen on vent via trach. Current Diet Order/ Nutrition Support no diet order Pertinent Medications 06/23 Na 133, K 3.2, Cl 97, BUN 40, Cr 1.2, Glucose 90, CA 9. 9 Pertinent Labs piperacillin, vancomycin Nutritional Hx/Data Height 1.3 m Height (Calculated Centimeters) 129.5 Current Weight (lbs) 60.781 kg Weight (Calculated Kilograms) 60.8 Weight (Calculated Grams) 33311.4 [place] Body Weight 82 Body Mass Index (BMI) 36.2 GI Symptoms GI Symptoms None Last BM 06/23 Difficult in: None Usual diet at home From chart: Fibersource HN 60ml/hr x 20hr, providing 1440kcal, 65g protein. Skin Integrity/Comment: cellulitis at g-tube site reddened to buttock Estimated Nutritional Goals BEE in Kcals: Using Current wt Calories/Kcals/Kg 20-25 Kcals Calculated 1982-6719 Protein: Using Current wt Protein g/k Protein Calculated 61 Fluid: ml 1220-1525ml (1ml/kcal) Nutritional Problem 1. Problem Problem altered nutrition related labs Etiology electrolytes imbalanced, hx of ESRD Signs/Symptoms: Na 133, K 3.2, Cl 97, BUN 40 Intervention/Recommendation Comments 1. Monitor NPO status. 2. If tubefeeding needed, recommend fibersource HN 60ml/ hr x 20hr. This will provide 1440kcal and 65g protein, 972ml free water. 3. Monitor wt, labs and skin integrity 4. F/U as high risk in 2-3 days, 06/25-06/26 Expected Outcomes/Goals Expected Outcomes/Goals 1. Pt to meet at least 75% of nutritional needs via nutrition support with tolerance 2. Wt stability, skin to remain intact, labs to approach WNL.
[2017-06-27] MEDS: D5-0.9%NS 1,000 ML IV SCH ×2 (00:06→09:36)
[2017-06-27] MEDS: Albuterol/Ipratropium Neb 3 ML AERS HHN SCH ×4 (00:52→18:35)
[2017-06-27 04:41] LABS: HEMOGLOBIN 8.6 gm/dL (12-16); MEAN CELL VOLUME 93.2 fl (80-99)
[2017-06-27 04:46] LABS: HEMATOCRIT 25.2 % (41.0-60); MEAN CORPUSCULAR HEMOGLOBIN 31.8 pg (27.0-31.0); MEAN CORPUSCULAR HGB CONC 34.2 pg (28.0-36.0); MEAN PLATELET VOLUME 5.2 fl; PLATELET COUNT 199 Th/cmm (150-400); RED BLOOD COUNT 2.71 Mil/cmm (3.80-5.80); RED CELL DISTRIBUTION WIDTH 19.3 % (11.5-20.0); WHITE BLOOD COUNT 4.3 Th/cmm (4.8-10.8)
[2017-06-27 04:58] LABS: MANUAL DIFF REQUIRED? YES
[2017-06-27] MEDS: Gentamicin 0.3% Ophth Soln 5mL Bottle RIGHT EYE SCH ×4 (05:21→22:46)
[2017-06-27 05:54] LABS: ANION GAP 11.8 (7.0-16.0); BUN - UREA NITROGEN 17 mg/dL (7-25); CALCIUM SERUM 8.7 mg/dL (8.6-10.3); CARBON DIOXIDE 20.8 mEq/L (21.0-31.0); CHLORIDE 114 mEq/L (98-107); CREATININE - SERUM 1.4 mg/dL (0.7-1.3); GFR AFRICAN-AMERICAN > 60.0 ml/min (>90); GFR NON AFRICAN-AMERICAN 53.7 ml/min; GLUCOSE 97 mg/dL (70-105); POTASSIUM SERUM 3.6 mEq/L (3.5-5.1); SODIUM SERUM 143 mEq/L (136-145)
[2017-06-27 07:00] LABS: EOSINOPHIL 5 % (0-5); LYMPHOCYTE 25 % (20-50); MONOCYTE 6 % (2-10); NEUTROPHILS 64 % (40-80); TOTAL CELLS COUNTED 100
[2017-06-27] MEDS: Chlorhexidine Gluconate 0.12% 15mL Mouthwash MM SCH ×2 (08:45→21:01)
[2017-06-27] MEDS: Ferrous Sulfate 300 MG/5 ML UDC GT SCH (09:12)
[2017-06-27] MEDS: Docusate Sodium 100 mg/10 mL UD GT SCH (09:13)
[2017-06-27] MEDS: predniSONE 5 mg/5 mL UDC GT SCH (09:15)
[2017-06-27] MEDS: Levetiracetam 500 mg/5mL 5mL UDSyr *for ORAL USE ONLY GT SCH ×2 (09:15→16:15)
[2017-06-27] MEDS ORDERED: Morphine Sulfate 4 mg/mL 1mL Syr IM PRN ×2 (09:19→09:20)
[2017-06-27] MEDS: Multivitamin w/ Minerals Tab GT SCH (09:36)
[2017-06-27] MEDS: INSULIN ASPART, RECOMBINANT 100 UNITS/ML SUBQ SCH ×2 (09:40→16:14)
[2017-06-27] MEDS ORDERED: Morphine Sulfate 4 mg/mL 1mL Syr IVP PRN (09:55)
[2017-06-27] MEDS: Morphine Sulfate 4 mg/mL 1mL Syr IVP PRN ×2 (10:54→16:20)
--- NOTE | 2017-06-27 10:54 | Consultation ---
DATE OF CONSULTATION: 06/27/2017 INPATIENT GASTROINTESTINAL CONSULTATION CONSULTING PHYSICIAN: Dr. Ochoa. REASON FOR CONSULTATION: Possible GI bleeding, G-tube site cellulitis. HISTORY OF PRESENT ILLNESS: The patient is a 66-year-old male with past medical history significant for ventilator dependence with a tracheostomy, G-tube dependence due to chronic dysphagia and dementia who is a permanent resident of a nursing facility, admitted to the hospital now with symptoms of respiratory failure and sepsis. The patient was seen to have redness and some purulent drainage around his G-tube site in the nursing facility and was thus transferred to the hospital for treatment of G-tube site cellulitis as well as possible urinary tract infection. When he was admitted, he was seen to have a hemoglobin below 7, although there are no overt signs of GI bleeding and the fecal occult blood is negative. GI is asked for consultation for possible GI bleed and the G-tube site cellulitis. PAST MEDICAL HISTORY: Chronic tracheostomy, G-tube dependence, dementia and encephalopathy, previous pneumonia and urinary tract infections. PAST SURGICAL HISTORY: Placement of a tracheostomy, G-tube. FAMILY HISTORY: Noncontributory. SOCIAL HISTORY: The patient is a permanent resident of a nursing facility. There is no documented history of alcoholism or illicit drug use. REVIEW OF SYSTEMS: Not possible given the patient's inability to participate in the interview. CURRENT MEDICATIONS: Tylenol, albuterol, amiodarone, vitamin C, Colace, Vasotec, iron, hydralazine, gentamicin, insulin, Keppra, milk of magnesia, Reglan, metoprolol, pantoprazole daily, Zosyn, prednisone, vancomycin. PHYSICAL EXAMINATION: VITAL SIGNS: Blood pressure is 174/91, pulse 82 beats per minute, temperature 98.4, oxygenation 97%, respiratory rate of 21. GENERAL: The patient is lying at 30 degrees in bed. He is alert and oriented x 0, no apparent distress. HEENT: Normocephalic, atraumatic. Pupils are fixed, but equal and reactive to light. Extraocular muscles did appear to be intact. Moist mucous membranes are noted. NECK: There is a tracheostomy in the midline clean, dry and intact. CHEST: Mechanical breath sounds are noted. CARDIOVASCULAR: S1, S2 present. Regular rate and rhythm. ABDOMEN: Soft, nontender. G-tube site is located in the left quadrant. There is some possible drainage of yellowish material around the G-tube site with some redness around the site as well. No guarding or rebound noted. EXTREMITIES: No pitting edema. Pulses are not present. SKIN: No obvious jaundice or cyanosis. LABORATORY DATA: White blood cell count 4.3, hemoglobin 8.6, platelet count is 199. Sodium 143, BUN is 17, creatinine is 1.4. Fecal stool occult blood is negative. No abdominal imaging has been performed. IMPRESSION: This is a 66-year-old man who has chronic dysphagia, encephalopathy requiring chronic tracheostomy and G-tube, who is a permanent resident of a nursing facility, admitted to the hospital with signs of urinary tract infection and G-tube site cellulitis. 1. G-tube site cellulitis. 2. Anemia. 3. Urinary tract infection. 4. Possible pneumonia as well. DISCUSSION: The patient's source of his anemia is unclear. He does have a fecal occult blood negative, which is somewhat reassuring against an active GI bleed; however, given that he also has evidence of a G-tube site cellulitis, we can perform an upper endoscopy to examine for any evidence of ulcer or recent upper GI bleeding and at the same time, we can replace the G-tube with a new one to help with any recovery from the cellulitis. 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 RECOMMENDATIONS: 1. We will plan for EGD and G-tube replacement, likely tomorrow, although this may have to be on Tuesday as well depending on the OR schedule. 2. Continue Protonix at this time. 3. Continue to cycle hemoglobin and transfuse to keep hemoglobin of 7. 4. Appreciate ID recommendations and continue antibiotics at this time. N.p.o. after midnight. Thank you for allowing me to participate in this patient's care. Please call with any further questions. JOB# [id number]
--- NOTE | 2017-06-27 15:27 | General Progress Note ---
Subjective - Review of Systems Events since last encounter: in no distress Objective - Results Result Diagrams: 06/27/17 04:20 06/27/17 05:30 Recent Labs: Laboratory Last Values WBC 4.3 Th/cmm (4.8-10.8) L 06/27/17 04:20 RBC 2.71 Mil/cmm (3.80-5.80) L 06/27/17 04:20 Hgb 8.6 gm/dL (12-16) L 06/27/17 04:20 Hct 25.2 % (41.0-60) L 06/27/17 04:20 MCV 93.2 fl (80-99) 06/27/17 04:20 MCH 31.8 pg (27.0-31.0) H 06/27/17 04:20 MCHC Differential 34.2 pg (28.0-36.0) 06/27/17 04:20 RDW 19.3 % (11.5-20.0) 06/27/17 04:20 Plt Count 199 Th/cmm (150-400) 06/27/17 04:20 MPV 5.2 fl 06/27/17 04:20 Neutrophils % 75.2 % (40.0-80.0) 06/24/17 04:10 Band Neutrophils % 1 % (0-10) 06/26/17 09:00 Lymphocytes % 12.2 % (20.0-50.0) L 06/24/17 04:10 Monocytes % 3.6 % (2.0-10.0) 06/24/17 04:10 Eosinophils % 8.4 % (0.0-5.0) H 06/24/17 04:10 Basophils % 0.6 % (0.0-2.0) 06/24/17 04:10 Neutrophils (Manual) 64 % (40-80) 06/27/17 04:20 Lymphocytes 25 % (20-50) 06/27/17 04:20 Monocytes 6 % (2-10) 06/27/17 04:20 Eosinophils 5 % (0-5) 06/27/17 04:20 Basophils 0 % (0-3) 06/22/17 19:45 Metamyelocytes 1 % (0-0) H 06/22/17 19:45 Myelocytes 2 % 06/22/17 19:45 Platelet Estimate ADEQUATE (NORMAL) 06/23/17 04:20 Anisocytosis 1+ 06/26/17 09:00 PT 9.9 SECONDS (9.5-11.5) 06/22/17 19:45 INR 0.95 (0.5-1.4) 06/22/17 19:45 PTT (Actin FS) 24.3 SECONDS (26.0-38.0) L 06/22/17 19:45 Sodium 143 mEq/L (136-145) 06/27/17 05:30 Potassium 3.6 mEq/L (3.5-5.1) 06/27/17 05:30 Chloride 114 mEq/L (98-107) H 06/27/17 05:30 Carbon Dioxide 20.8 mEq/L (21.0-31.0) L 06/27/17 05:30 Anion Gap 11.8 (7.0-16.0) 06/27/17 05:30 BUN 17 mg/dL (7-25) 06/27/17 05:30 Creatinine 1.4 mg/dL (0.7-1.3) H 06/27/17 05:30 Est GFR ( Amer) > 60.0 ml/min (>90) 06/27/17 05:30 Est GFR (Non-Af Amer) 53.7 ml/min 06/27/17 05:30 BUN/Creatinine Ratio 12.1 06/27/17 05:30 Glucose 97 mg/dL (70-105) 06/27/17 05:30 POC Glucose 113 MG/DL (70 - 105) H 06/27/17 09:39 Whole Bld Lactic Acid 1.96 mmol/L (0.60-1.99) 06/22/17 19:45 Calcium 8.7 mg/dL (8.6-10.3) 06/27/17 05:30 Total Bilirubin 0.5 mg/dL (0.3-1.0) 06/25/17 04:15 AST 22 U/L (13-39) 06/25/17 04:15 ALT 32 U/L (7-52) 06/25/17 04:15 Alkaline Phosphatase 67 U/L (34-104) 06/25/17 04:15 Creatine Kinase 80 U/L (30-223) 06/22/17 19:45 Troponin I 0.01 ng/mL (0.01-0.05) 06/22/17 19:45 Total Protein 6.9 gm/dL (6.0-8.3) 06/25/17 04:15 Albumin 3.2 gm/dL (4.2-5.5) L 06/25/17 04:15 Globulin 3.7 gm/dL 06/25/17 04:15 Albumin/Globulin Ratio 0.9 (1.0-1.8) L 06/25/17 04:15 Urine Source CATH 06/22/17 19:30 Urine Color YELLOW 06/22/17 19:30 Urine Clarity CLOUDY (CLEAR) 06/22/17 19:30 Urine pH 7.5 (4.6 - 8.0) 06/22/17 19:30 Ur Specific [place] 1.015 (1.005-1.030) 06/22/17 19:30 Urine Protein 30 mg/dL (NEGATIVE) H 06/22/17 19:30 Urine Glucose (UA) NEGATIVE mg/dL (NEGATIVE) 06/22/17 19:30 Urine Ketones NEGATIVE mg/dL (NEGATIVE) 06/22/17 19:30 Urine Blood NEGATIVE (NEGATIVE) 06/22/17 19:30 Urine Nitrate POSITIVE (NEGATIVE) H 06/22/17 19:30 Urine Bilirubin NEGATIVE (NEGATIVE) 06/22/17 19:30 Urine Urobilinogen 0.2 E.U./dL (0.2 - 1.0) 06/22/17 19:30 Ur Leukocyte Esterase MODERATE (NEGATIVE) H 06/22/17 19:30 Urine RBC 0-2 /hpf (0-5) H 06/22/17 19:30 Urine WBC 6-10 /hpf (0-5) 06/22/17 19:30 Ur Epithelial Cells OCCASIONAL /lpf (FEW) 06/22/17 19:30 Urine Bacteria MANY /hpf (NONE SEEN) H 06/22/17 19:30 Stool Occult Blood NEGATIVE (NEGATIVE) 06/26/17 17:05 Vancomycin Trough 23.0 ug/mL (10-20) H 06/27/17 05:30 Blood Type O POSITIVE 06/26/17 11:10 Antibody Screen NEGATIVE 06/26/17 11:10 Crossmatch See Detail 06/26/17 11:10 - Physical Exam Vitals and I&O: Vital Signs Temp 97.9 F 06/27/17 15:00 Pulse 65 06/27/17 15:00 Resp 13 06/27/17 15:00 BP 146/77 06/27/17 15:00 Pulse Ox 94 06/27/17 15:00 Intake & Output 06/26/17 06/27/17 06/27/17 18:59 06:59 18:59 Intake Total 2180 1660 762.5 Output Total 720 700 Balance 1460 960 762.5 Weight (lbs) 59.222 kg 58.967 kg Intake: Intake, IV Amount 1350 1100 762.5 D5-0.9%Ns 1,000 ml @ 75 1000 1000 712.5 mls/hr IV .[id number] [facility] Rx #:[id number] Piperacillin Sodium/ 100 100 50 Tazobact 3.375 gm In Sodium Chloride 0.9% 50 ml @ 100 mls/hr IV Q6HR [facility] Rx#:[id number] Vancomycin HCl 1 gm In 250 Dextrose 5% 250 ml @ 165 mls/hr IV Q24HR@1000 [facility] Rx#:[id number] Tube Feeding 270 360 Blood Product 250 Other 310 200 Output: Urine 720 700 Other: # Bowel Movements 1 1 Weight Source Bedscale Bedscale Active Medications: Current Medications Acetaminophen (Tylenol) 650 mg GT Q4HR PRN PRN Reason: Pain or Fever >101 Stop: 08/23/17 15:37 Last Admin: 06/27/17 09:13 Dose: 650 mg Albuterol/Ipratropium (Duoneb Neb) 3 ml HHN Q6HRT [facility] Stop: 08/22/17 00:59 Last Admin: 06/27/17 13:09 Dose: 3 ml Albuterol/Ipratropium (Duoneb Neb) 3 ml HHN Q2HR PRN PRN Reason: Shortness of Breath Stop: 08/23/17 15:37 Amiodarone HCl (Cordarone) 200 mg GT DAILY [facility] Stop: 08/24/17 08:59 Last Admin: 06/27/17 09:12 Dose: 200 mg Ascorbic Acid (Vitamin C) 500 mg PO DAILY [facility] Stop: 08/24/17 12:29 Last Admin: 06/27/17 09:12 Dose: 500 mg Chlorhexidine Gluconate (Peridex) 15 ml MM 08,1999 [facility] Stop: 08/22/17 07:59 Last Admin: 06/27/17 08:45 Dose: 15 ml Docusate Sodium (Colace) 100 mg GT DAILY PAO Stop: 08/24/17 08:59 Last Admin: 06/27/17 09:13 Dose: 100 mg Enalaprilat (Vasotec) 2.5 mg IVP Q6HR PRN PRN Reason: SBP>160 Stop: 08/25/17 00:00 Last Admin: 06/26/17 11:00 Dose: 2.5 mg Ferrous Sulfate (Iron) 300 mg GT DAILY [facility] Stop: 08/24/17 08:59 Last Admin: 06/27/17 09:12 Dose: 300 mg Folic Acid (Folate) 1 mg GT DAILY [facility] Stop: 08/24/17 08:59 Last Admin: 06/27/17 09:36 Dose: 1 mg Gentamicin Sulfate (Gentak 0.3% Ophth Soln) 1 drop RIGHT EYE Q6H [facility] Stop: 08/23/17 15:44 Last Admin: 06/27/17 09:37 Dose: 1 drop Hydralazine HCl (Apresoline) 10 mg GT Q6H PRN PRN Reason: SBP ABOVE 160 Stop: 08/23/17 15:37 Last Admin: 06/26/17 16:44 Dose: 10 mg Piperacillin Sod/Tazobactam (Sod 3.375 gm/ Sodium Chloride) 50 mls @ 100 mls/ hr IV Q6HR [facility] Stop: 08/22/17 00:00 Last Infusion: 06/27/17 12:30 Dose: Infused Dextrose/Sodium Chloride (D5-0.9%Ns) 1,000 mls @ 75 mls/hr IV .[id number] [facility] Stop: 08/23/17 14:56 Last Admin: 06/27/17 09:36 Dose: 75 mls/hr Vancomycin HCl 0.75 gm/ Sodium (Chloride) 250 mls @ 165 mls/hr IV Q24H [facility] Stop: 08/26/17 15:59 Last Admin: 06/27/17 15:22 Dose: 165 mls/hr Insulin Aspart (Novolog) 0 units SUBQ BIDAC PAO PRN Reason: Protocol Stop: 08/23/17 16:29 Last Admin: 06/27/17 09:40 Dose: Not Given Levetiracetam (Keppra) 500 mg GT BID [facility] Stop: 08/23/17 16:59 Last Admin: 06/27/17 09:15 Dose: 500 mg Magnesium Hydroxide (Milk Of Magnesia) 30 ml GT BID PRN PRN Reason: Constipation Stop: 08/23/17 15:37 Metoclopramide HCl (Reglan) 5 mg GT Q6H PRN PRN Reason: gerd Stop: 08/23/17 15:37 Metoprolol Tartrate (Lopressor) 25 mg GT BID [facility] Stop: 08/26/17 09:59 Last Admin: 06/27/17 09:52 Dose: 25 mg Miscellaneous (Vancomycin Iv Per Pharmacy) 1 ea MC PRN PRN PRN Reason: PROTOCOL Stop: 08/21/17 22:36 Miscellaneous (Amikacin Sulfate [Amikacin Sulfate]) 450 mg IV Q36H [facility] Stop: 08/23/17 15:44 Morphine Sulfate (Morphine) 2 mg IVP Q4H PRN PRN Reason: Pain (Severe) Stop: 08/26/17 09:19 Last Admin: 06/27/17 10:54 Dose: 2 mg Morphine Sulfate (Morphine) 1 mg IVP Q4H PRN PRN Reason: Pain (Moderate) Stop: 08/26/17 09:18 Pantoprazole Sodium (Protonix) 40 mg IVP DAILY [facility] Stop: 08/24/17 08:59 Last Admin: 06/27/17 09:13 Dose: 40 mg Prednisone (Prednisone) 5 mg GT DAILY [facility] Stop: 08/24/17 08:59 Last Admin: 06/27/17 09:15 Dose: 5 mg - Procedures Procedures: Procedures Procedure Code Date BLOOD TRANSFUSION SERVICE 82843 05/17/17 RESPIRATORY VENTILATION, 24-96 CONSECUTIVE HOURS [id number] 05/24/17 RESPIRATORY VENTILATION, GREATER THAN 96 CONSECUTIVE HOURS [id number] 06/22/17 TRANSFUSE NONAUT RED BLOOD CELLS IN PERIPH VEIN, PERC 45577T2 05/17/17 Nutritional Asmnt/Malnutr-PDOC - Dietary Evaluation Malnutrition Findings (Please click <Entered> for more info): Nutritional Asmnt/Malnutrition Start: 06/23/17 14: 03 Text: Status: Complete Freq: Document 06/23/17 14:03 DARRENG (Rec: 06/23/17 14:26 KEIRY [email or web address]) Nutritional Asmnt/Malnutrition Patient General Information Nutritional Screening High Risk Diagnosis G-tube site cellulitis Pertinent Medical Hx/Surgical Hx HTN, DM, asthma/COPD, dyslipidemia, PUD/GERD, ESRD, arthritis, PEG/Gtube Subjective Information Pt seen on vent via trach. Current Diet Order/ Nutrition Support no diet order Pertinent Medications 06/23 Na 133, K 3.2, Cl 97, BUN 40, Cr 1.2, Glucose 90, CA 9. 9 Pertinent Labs piperacillin, vancomycin Nutritional Hx/Data Height 1.3 m Height (Calculated Centimeters) 129.5 Current Weight (lbs) 60.781 kg Weight (Calculated Kilograms) 60.8 Weight (Calculated Grams) 18711.4 [place] Body Weight 82 Body Mass Index (BMI) 36.2 GI Symptoms GI Symptoms None Last BM 06/23 Difficult in: None Usual diet at home From chart: Fibersource HN 60ml/hr x 20hr, providing 1440kcal, 65g protein. Skin Integrity/Comment: cellulitis at g-tube site reddened to buttock Estimated Nutritional Goals BEE in Kcals: Using Current wt Calories/Kcals/Kg 20-25 Kcals Calculated 1241-4103 Protein: Using Current wt Protein g/k Protein Calculated 61 Fluid: ml 1220-1525ml (1ml/kcal) Nutritional Problem 1. Problem Problem altered nutrition related labs Etiology electrolytes imbalanced, hx of ESRD Signs/Symptoms: Na 133, K 3.2, Cl 97, BUN 40 Intervention/Recommendation Comments 1. Monitor NPO status. 2. If tubefeeding needed, recommend fibersource HN 60ml/ hr x 20hr. This will provide 1440kcal and 65g protein, 972ml free water. 3. Monitor wt, labs and skin integrity 4. F/U as high risk in 2-3 days, 06/25-06/26 Expected Outcomes/Goals Expected Outcomes/Goals 1. Pt to meet at least 75% of nutritional needs via nutrition support with tolerance 2. Wt stability, skin to remain intact, labs to approach WNL.
--- NOTE | 2017-06-27 23:43 | Infectious Disease Prog Note ---
Infectious Disease Subjective - Review of Systems Service Date: 06/27/17 Subjective: there is no new change, no fever, on the ventilator, no fever Infectious Disease Objective - Results Result Diagrams: 06/27/17 04:20 06/27/17 05:30 Recent Labs: Laboratory Last Values WBC 4.3 Th/cmm (4.8-10.8) L 06/27/17 04:20 RBC 2.71 Mil/cmm (3.80-5.80) L 06/27/17 04:20 Hgb 8.6 gm/dL (12-16) L 06/27/17 04:20 Hct 25.2 % (41.0-60) L 06/27/17 04:20 MCV 93.2 fl (80-99) 06/27/17 04:20 MCH 31.8 pg (27.0-31.0) H 06/27/17 04:20 MCHC Differential 34.2 pg (28.0-36.0) 06/27/17 04:20 RDW 19.3 % (11.5-20.0) 06/27/17 04:20 Plt Count 199 Th/cmm (150-400) 06/27/17 04:20 MPV 5.2 fl 06/27/17 04:20 Neutrophils % 75.2 % (40.0-80.0) 06/24/17 04:10 Band Neutrophils % 1 % (0-10) 06/26/17 09:00 Lymphocytes % 12.2 % (20.0-50.0) L 06/24/17 04:10 Monocytes % 3.6 % (2.0-10.0) 06/24/17 04:10 Eosinophils % 8.4 % (0.0-5.0) H 06/24/17 04:10 Basophils % 0.6 % (0.0-2.0) 06/24/17 04:10 Neutrophils (Manual) 64 % (40-80) 06/27/17 04:20 Lymphocytes 25 % (20-50) 06/27/17 04:20 Monocytes 6 % (2-10) 06/27/17 04:20 Eosinophils 5 % (0-5) 06/27/17 04:20 Basophils 0 % (0-3) 06/22/17 19:45 Metamyelocytes 1 % (0-0) H 06/22/17 19:45 Myelocytes 2 % 06/22/17 19:45 Platelet Estimate ADEQUATE (NORMAL) 06/23/17 04:20 Anisocytosis 1+ 06/26/17 09:00 PT 9.9 SECONDS (9.5-11.5) 06/22/17 19:45 INR 0.95 (0.5-1.4) 06/22/17 19:45 PTT (Actin FS) 24.3 SECONDS (26.0-38.0) L 06/22/17 19:45 Sodium 143 mEq/L (136-145) 06/27/17 05:30 Potassium 3.6 mEq/L (3.5-5.1) 06/27/17 05:30 Chloride 114 mEq/L (98-107) H 06/27/17 05:30 Carbon Dioxide 20.8 mEq/L (21.0-31.0) L 06/27/17 05:30 Anion Gap 11.8 (7.0-16.0) 06/27/17 05:30 BUN 17 mg/dL (7-25) 06/27/17 05:30 Creatinine 1.4 mg/dL (0.7-1.3) H 06/27/17 05:30 Est GFR ( Amer) > 60.0 ml/min (>90) 06/27/17 05:30 Est GFR (Non-Af Amer) 53.7 ml/min 06/27/17 05:30 BUN/Creatinine Ratio 12.1 06/27/17 05:30 Glucose 97 mg/dL (70-105) 06/27/17 05:30 POC Glucose 109 MG/DL (70 - 105) H 06/27/17 16:13 Whole Bld Lactic Acid 1.96 mmol/L (0.60-1.99) 06/22/17 19:45 Calcium 8.7 mg/dL (8.6-10.3) 06/27/17 05:30 Total Bilirubin 0.5 mg/dL (0.3-1.0) 06/25/17 04:15 AST 22 U/L (13-39) 06/25/17 04:15 ALT 32 U/L (7-52) 06/25/17 04:15 Alkaline Phosphatase 67 U/L (34-104) 06/25/17 04:15 Creatine Kinase 80 U/L (30-223) 06/22/17 19:45 Troponin I 0.01 ng/mL (0.01-0.05) 06/22/17 19:45 Total Protein 6.9 gm/dL (6.0-8.3) 06/25/17 04:15 Albumin 3.2 gm/dL (4.2-5.5) L 06/25/17 04:15 Globulin 3.7 gm/dL 06/25/17 04:15 Albumin/Globulin Ratio 0.9 (1.0-1.8) L 06/25/17 04:15 Urine Source CATH 06/22/17 19:30 Urine Color YELLOW 06/22/17 19:30 Urine Clarity CLOUDY (CLEAR) 06/22/17 19:30 Urine pH 7.5 (4.6 - 8.0) 06/22/17 19:30 Ur Specific [place] 1.015 (1.005-1.030) 06/22/17 19:30 Urine Protein 30 mg/dL (NEGATIVE) H 06/22/17 19:30 Urine Glucose (UA) NEGATIVE mg/dL (NEGATIVE) 06/22/17 19:30 Urine Ketones NEGATIVE mg/dL (NEGATIVE) 06/22/17 19:30 Urine Blood NEGATIVE (NEGATIVE) 06/22/17 19:30 Urine Nitrate POSITIVE (NEGATIVE) H 06/22/17 19:30 Urine Bilirubin NEGATIVE (NEGATIVE) 06/22/17 19:30 Urine Urobilinogen 0.2 E.U./dL (0.2 - 1.0) 06/22/17 19:30 Ur Leukocyte Esterase MODERATE (NEGATIVE) H 06/22/17 19:30 Urine RBC 0-2 /hpf (0-5) H 06/22/17 19:30 Urine WBC 6-10 /hpf (0-5) 06/22/17 19:30 Ur Epithelial Cells OCCASIONAL /lpf (FEW) 06/22/17 19:30 Urine Bacteria MANY /hpf (NONE SEEN) H 06/22/17 19:30 Stool Occult Blood NEGATIVE (NEGATIVE) 06/26/17 17:05 Vancomycin Trough 23.0 ug/mL (10-20) H 06/27/17 05:30 Blood Type O POSITIVE 06/26/17 11:10 Antibody Screen NEGATIVE 06/26/17 11:10 Crossmatch See Detail 06/26/17 11:10 - Physical Exam Vitals and I&O: Vital Signs Temp 97.4 F 06/27/17 19:00 Pulse 66 06/27/17 23:07 Resp 14 06/27/17 19:00 BP 167/83 06/27/17 19:00 Pulse Ox 100 06/27/17 23:07 Intake & Output 06/27/17 06/27/17 06/28/17 06:59 18:59 06:59 Intake Total 1660 1422.5 Output Total 700 600 Balance 960 822.5 Weight (lbs) 58.967 kg 63.049 kg Intake: Intake, IV Amount 1100 762.5 D5-0.9%Ns 1,000 ml @ 75 1000 712.5 mls/hr IV .[id number] [facility] Rx #:[id number] Piperacillin Sodium/ 100 50 Tazobact 3.375 gm In Sodium Chloride 0.9% 50 ml @ 100 mls/hr IV Q6HR [facility] Rx#:[id number] Tube Feeding 360 360 Other 200 300 Output: Urine 700 600 Other: # Bowel Movements 1 1 Stool Characteristics Formed Weight Source Bedscale Bedscale Active Medications: Current Medications Acetaminophen (Tylenol) 650 mg GT Q4HR PRN PRN Reason: Pain or Fever >101 Stop: 08/23/17 15:37 Last Admin: 06/27/17 09:13 Dose: 650 mg Albuterol/Ipratropium (Duoneb Neb) 3 ml HHN Q6HRT [facility] Stop: 08/22/17 00:59 Last Admin: 06/27/17 18:35 Dose: 3 ml Albuterol/Ipratropium (Duoneb Neb) 3 ml HHN Q2HR PRN PRN Reason: Shortness of Breath Stop: 08/23/17 15:37 Amiodarone HCl (Cordarone) 200 mg GT DAILY [facility] Stop: 08/24/17 08:59 Last Admin: 06/27/17 09:12 Dose: 200 mg Ascorbic Acid (Vitamin C) 500 mg PO DAILY [facility] Stop: 08/24/17 12:29 Last Admin: 06/27/17 09:12 Dose: 500 mg Chlorhexidine Gluconate (Peridex) 15 ml MM 0800,2000 [facility] Stop: 08/22/17 07:59 Last Admin: 06/27/17 21:01 Dose: 15 ml Docusate Sodium (Colace) 100 mg GT DAILY [facility] Stop: 08/24/17 08:59 Last Admin: 06/27/17 09:13 Dose: 100 mg Enalaprilat (Vasotec) 2.5 mg IVP Q6HR PRN PRN Reason: SBP>160 Stop: 08/25/17 00:00 Last Admin: 06/26/17 11:00 Dose: 2.5 mg Ferrous Sulfate (Iron) 300 mg GT DAILY [facility] Stop: 08/24/17 08:59 Last Admin: 06/27/17 09:12 Dose: 300 mg Folic Acid (Folate) 1 mg GT DAILY [facility] Stop: 08/24/17 08:59 Last Admin: 06/27/17 09:36 Dose: 1 mg Gentamicin Sulfate (Gentak 0.3% Ophth Soln) 1 drop RIGHT EYE Q6H [facility] Stop: 08/23/17 15:44 Last Admin: 06/27/17 22:46 Dose: 1 drop Hydralazine HCl (Apresoline) 10 mg GT Q6H PRN PRN Reason: SBP ABOVE 160 Stop: 08/23/17 15:37 Last Admin: 06/26/17 16:44 Dose: 10 mg Dextrose/Sodium Chloride (D5-0.9%Ns) 1,000 mls @ 75 mls/hr IV .[id number] [facility] Stop: 08/23/17 14:56 Last Admin: 06/27/17 09:36 Dose: 75 mls/hr Insulin Aspart (Novolog) 0 units SUBQ BIDAC PAO PRN Reason: Protocol Stop: 08/23/17 16:29 Last Admin: 06/27/17 16:14 Dose: Not Given Levetiracetam (Keppra) 500 mg GT BID [facility] Stop: 08/23/17 16:59 Last Admin: 06/27/17 16:15 Dose: 500 mg Magnesium Hydroxide (Milk Of Magnesia) 30 ml GT BID PRN PRN Reason: Constipation Stop: 08/23/17 15:37 Metoclopramide HCl (Reglan) 5 mg GT Q6H PRN PRN Reason: gerd Stop: 08/23/17 15:37 Metoprolol Tartrate (Lopressor) 25 mg GT BID [facility] Stop: 08/26/17 09:59 Last Admin: 06/27/17 16:15 Dose: 25 mg Morphine Sulfate (Morphine) 2 mg IVP Q4H PRN PRN Reason: Pain (Severe) Stop: 08/26/17 09:19 Last Admin: 06/27/17 16:20 Dose: 2 mg Morphine Sulfate (Morphine) 1 mg IVP Q4H PRN PRN Reason: Pain (Moderate) Stop: 08/26/17 09:18 Pantoprazole Sodium (Protonix) 40 mg IVP DAILY [facility] Stop: 08/24/17 08:59 Last Admin: 06/27/17 09:13 Dose: 40 mg Prednisone (Prednisone) 5 mg GT DAILY [facility] Stop: 08/24/17 08:59 Last Admin: 06/27/17 09:15 Dose: 5 mg General: no acute distress, well developed, well nourished HEENT: atraumatic, normocephalic, PERRLA, EOMI Neck: supple, no thyromegaly Cardiovascular: S1S2, regular Lungs: clear to auscultation bilaterally, clear to percussion Abdomen: soft, no tender, no distended Extremities: no cyanosis, no clubbing, no edema Neurological: awake, alert, oriented Skin: intact - Procedures Procedures: Procedures Procedure Code Date BLOOD TRANSFUSION SERVICE 18743 05/17/17 RESPIRATORY VENTILATION, 24-96 CONSECUTIVE HOURS [id number] 05/24/17 RESPIRATORY VENTILATION, GREATER THAN 96 CONSECUTIVE HOURS [id number] 06/22/17 TRANSFUSE NONAUT RED BLOOD CELLS IN PERIPH VEIN, PERC 90856P3 05/17/17 Infectious Disease Assmt/Plan - Assessment Assessment: 1. abdominal wall cellultis. 2. diabetes mellitus type 2 3. coronary artery disease 4. Status post cardiopulmonary arrest. 5. Vent-dependent respiratory failure. 6. Dysphagia and G-tube placement. 7. anoxic encephalopathy. 8. history of CHF. 9. Hypertension 10. asthma, COPD 11. PUD, GERD 14. seizure disorder. 15. right eye conjunctivitis. - Plan Plan: Continue the same treatment. D5NS for nutrition. Protonix iv for gi prophylaxis. Continue zosyn for 5 more days. Nutritional Asmnt/Malnutr-PDOC - Dietary Evaluation Malnutrition Findings (Please click <Entered> for more info): Nutritional Asmnt/Malnutrition Start: 06/23/17 14: 03 Text: Status: Complete Freq: Document 06/23/17 14:03 KEIRY (Rec: 06/23/17 14:26 KEIRY [email or web address]) Nutritional Asmnt/Malnutrition Patient General Information Nutritional Screening High Risk Diagnosis G-tube site cellulitis Pertinent Medical Hx/Surgical Hx HTN, DM, asthma/COPD, dyslipidemia, PUD/GERD, ESRD, arthritis, PEG/Gtube Subjective Information Pt seen on vent via trach. Current Diet Order/ Nutrition Support no diet order Pertinent Medications 06/23 Na 133, K 3.2, Cl 97, BUN 40, Cr 1.2, Glucose 90, CA 9. 9 Pertinent Labs piperacillin, vancomycin Nutritional Hx/Data Height 1.3 m Height (Calculated Centimeters) 129.5 Current Weight (lbs) 60.781 kg Weight (Calculated Kilograms) 60.8 Weight (Calculated Grams) 75950.4 [place] Body Weight 82 Body Mass Index (BMI) 36.2 GI Symptoms GI Symptoms None Last BM 06/23 Difficult in: None Usual diet at home From chart: Fibersource HN 60ml/hr x 20hr, providing 1440kcal, 65g protein. Skin Integrity/Comment: cellulitis at g-tube site reddened to buttock Estimated Nutritional Goals BEE in Kcals: Using Current wt Calories/Kcals/Kg 20-25 Kcals Calculated 7965-6155 Protein: Using Current wt Protein g/k Protein Calculated 61 Fluid: ml 1220-1525ml (1ml/kcal) Nutritional Problem 1. Problem Problem altered nutrition related labs Etiology electrolytes imbalanced, hx of ESRD Signs/Symptoms: Na 133, K 3.2, Cl 97, BUN 40 Intervention/Recommendation Comments 1. Monitor NPO status. 2. If tubefeeding needed, recommend fibersource HN 60ml/ hr x 20hr. This will provide 1440kcal and 65g protein, 972ml free water. 3. Monitor wt, labs and skin integrity 4. F/U as high risk in 2-3 days, 06/25-06/26 Expected Outcomes/Goals Expected Outcomes/Goals 1. Pt to meet at least 75% of nutritional needs via nutrition support with tolerance 2. Wt stability, skin to remain intact, labs to approach WNL.
[2017-06-28] MEDS: Albuterol/Ipratropium Neb 3 ML AERS HHN SCH ×4 (01:01→19:34)
[2017-06-28] MEDS: Morphine Sulfate 4 mg/mL 1mL Syr IVP PRN ×3 (02:05→20:30)
[2017-06-28] MEDS: D5-0.9%NS 1,000 ML IV SCH ×2 (03:00→20:24)
[2017-06-28] MEDS ORDERED: Piperacillin Sodium/Tazobact 3.375 gm Vial IV ONE (03:12)
[2017-06-28] MEDS: Gentamicin 0.3% Ophth Soln 5mL Bottle RIGHT EYE SCH ×4 (03:25→21:34)
[2017-06-28 04:35] LABS: RED BLOOD COUNT 2.75 Mil/cmm (3.80-5.80)
[2017-06-28 04:39] LABS: HEMATOCRIT 25.5 % (41.0-60); HEMOGLOBIN 8.8 gm/dL (12-16); MEAN CELL VOLUME 92.9 fl (80-99); MEAN CORPUSCULAR HGB CONC 34.4 pg (28.0-36.0); MEAN PLATELET VOLUME 5.3 fl; PLATELET COUNT 222 Th/cmm (150-400); RED CELL DISTRIBUTION WIDTH 19.3 % (11.5-20.0); WHITE BLOOD COUNT 4.9 Th/cmm (4.8-10.8)
[2017-06-28 04:48] LABS: INR 1.07 (0.5-1.4); PROTHROMBIN TIME (TEST) 11.1 SECONDS (9.5-11.5)
[2017-06-28 04:49] LABS: ANION GAP 9.9 (7.0-16.0); BUN - UREA NITROGEN 18 mg/dL (7-25); CALCIUM SERUM 8.6 mg/dL (8.6-10.3); CARBON DIOXIDE 18.4 mEq/L (21.0-31.0); CHLORIDE 115 mEq/L (98-107); CREATININE - SERUM 1.3 mg/dL (0.7-1.3); GFR AFRICAN-AMERICAN > 60.0 ml/min (>90); GFR NON AFRICAN-AMERICAN 58.5 ml/min; GLUCOSE 88 mg/dL (70-105); POTASSIUM SERUM 3.3 mEq/L (3.5-5.1); SODIUM SERUM 140 mEq/L (136-145)
[2017-06-28 05:08] LABS: % BASOPHILS 0.4 % (0.0-2.0); % EOSINOPHILS 1.5 % (0.0-5.0); % LYMPHOCYTES 25.6 % (20.0-50.0); % MONOCYTES 5.6 % (2.0-10.0); % NEUTROPHILS 66.9 % (40.0-80.0); NEUTROPHILE ABSOLUTE 1.6 Th/cmm (1.8-8.0)
[2017-06-28 05:09] LABS: LYMPHOCYTE ABSOLUTE 0.6 Th/cmm (1.5-3.0); MONOCYTE ABSOLUTE 0.1 Th/cmm (0.3-1.0)
[2017-06-28] MEDS: INSULIN ASPART, RECOMBINANT 100 UNITS/ML SUBQ SCH ×2 (06:54→17:10)
[2017-06-28] MEDS: Chlorhexidine Gluconate 0.12% 15mL Mouthwash MM SCH ×2 (08:20→20:05)
[2017-06-28] MEDS ORDERED: Lidocaine 2% Gel 5 mL TP ONE (08:20)
[2017-06-28] MEDS ORDERED: Propofol 10 mg/mL 20mL Vial **SURGERY USE ONLY IV ONE (08:20)
--- NOTE | 2017-06-28 08:45 | Diagnostic Imaging Report ---
Portable chest x-ray HISTORY: Shortness of breath Compared to prior exam of June 22, 2017, no definite focal pulmonary processes are seen. No other changes. IMPRESSION: 1. No change from June 22, 2017. Vertebral no focal pulmonary processes
[2017-06-28] MEDS: predniSONE 5 mg/5 mL UDC GT SCH (09:00)
[2017-06-28] MEDS: Docusate Sodium 100 mg/10 mL UD GT SCH (09:00)
[2017-06-28] MEDS: Multivitamin w/ Minerals Tab GT SCH (09:00)
[2017-06-28] MEDS: Ferrous Sulfate 300 MG/5 ML UDC GT SCH (09:00)
--- NOTE | 2017-06-28 10:22 | Operative Report ---
DATE OF SURGERY: 06/28/2017 INPATIENT EGD REPORT WITH G-TUBE REPLACEMENT ENDOSCOPIST: Rafa Worrell MD. PREOPERATIVE DIAGNOSES: G-tube cellulitis and coffee-ground emesis. POSTOPERATIVE DIAGNOSES: Successful replacement of G-tube, esophageal stricture. INDICATION: The patient is a 66-year-old male with baseline dementia who is dependent on tracheostomy and G-tube for feeding, who is noted to have coffee-ground emesis yesterday and is admitted to the hospital with possible G-tube site cellulitis on antibiotics. GI is asked for evaluation of the coffee-ground emesis and the G-tube site cellulitis. CONSENT: Informed consent was obtained from the patient's conservator. The risks and benefits of the procedure were discussed including but not limited to infection, bleeding, perforation, need for surgery, cardiopulmonary complications, missed pathology and . The patient's conservator indicated their understanding of these risks and wished for the procedure and signed the consent form. ANESTHESIA: The procedure was performed at bedside in ICU under the direction of the anesthesiologist. PROCEDURE IN DETAIL: The patient was hooked up to the appropriate monitoring devices including blood pressure, pulse and pulse oximetry. An IV was in place. Oxygen was delivered via nasal cannula throughout the procedure. General anesthesiologist then administered propofol under his direction. After initiation of anesthesia, a gastroscope introduced into the mouth and guided under direct visualization to the level of the esophagus. However, there was a stricture in the mid esophagus and the scope could not pass this area, thus a pediatric gastroscope was changed and this could easily pass through the stricture and into the distal esophagus, stomach and duodenum. The scope was then slowly withdrawn making sure to examine the entire mucosa in a careful fashion. Retroflexion was performed in the stomach. The scope was straightened and withdrawn from the body. Additionally, the previous G-tube balloon was deflated and a new 22-[place] G-tube was inserted through the gastrocutaneous fistula and the internal balloon inflated with 15 mL of water under direct visualization from the scope. There is no complication at the end of the procedure. FINDINGS: Esophagus: There was a mid esophageal stricture located at 15 cm from the incisors. The gastroscope could not pass this area and required a pediatric gastroscope to get through this. There was some friability within the stricture, most likely from the gastroscope trauma. There was no mass lesion found here. The GE junction was located at 40 cm from the incisors. There was no evidence of mass or ulcer or De [place] Rosa's esophagus. Stomach: There was large amount of bilious fluid in the stomach that was suctioned. There was no ulcer or mass lesion found. The old G-tube site was examined thoroughly and there was no ulcer there or bleeding. The new G-tube was successfully inserted through the previous gastrocutaneous fistula with ease under direct visualization from the scope. The internal balloon was inflated to 15 mL under direct visualization. Duodenum: The duodenal bulb and second portion appeared endoscopically normal. IMPRESSION: 1. Esophageal stricture at 15 cm. 2. Successful replacement of the G-tube endoscopically. RECOMMENDATIONS: 1. Can restart feeding through the new G-tube. 2. Continue with broad-spectrum antibiotic therapy as directed by Infectious Disease consultation. 3. Flush the G-tube with 100 mL of water every 6 hours. 4. Check residuals every 6 hours and hold for residuals greater than 100 mL. If this is found, the patient may need Reglan to help with motility. Thank you for allowing me to participate in this patient's care. Please call with any further questions. JOB# [id number]
[2017-06-28] MEDS ORDERED: KCL 20mEq/100mL Premix 20 MEQ/100 ML PIGGYBACK IV ONE (12:19)
[2017-06-28] MEDS ORDERED: Potassium Chloride 20 mEq ER Tab PO ONE (13:26)
[2017-06-28] MEDS: Levetiracetam 500 mg/5mL 5mL UDSyr *for ORAL USE ONLY GT SCH ×2 (14:03→18:16)
[2017-06-29] MEDS: Albuterol/Ipratropium Neb 3 ML AERS HHN SCH ×3 (01:14→13:21)
[2017-06-29] MEDS: Morphine Sulfate 4 mg/mL 1mL Syr IVP PRN ×2 (02:40→15:55)
[2017-06-29] MEDS: Gentamicin 0.3% Ophth Soln 5mL Bottle RIGHT EYE SCH ×3 (03:25→16:02)
[2017-06-29 05:08] LABS: MEAN CORPUSCULAR HGB CONC 34.4 pg (28.0-36.0)
[2017-06-29 05:12] LABS: HEMATOCRIT 26.5 % (41.0-60); HEMOGLOBIN 9.1 gm/dL (12-16); MEAN CELL VOLUME 92.3 fl (80-99); MEAN CORPUSCULAR HEMOGLOBIN 31.8 pg (27.0-31.0); MEAN PLATELET VOLUME 5.7 fl; PLATELET COUNT 184 Th/cmm (150-400); RED BLOOD COUNT 2.87 Mil/cmm (3.80-5.80); RED CELL DISTRIBUTION WIDTH 18.7 % (11.5-20.0); WHITE BLOOD COUNT 5.7 Th/cmm (4.8-10.8)
[2017-06-29 05:17] LABS: BUN - UREA NITROGEN 16 mg/dL (7-25); CALCIUM SERUM 8.6 mg/dL (8.6-10.3); CARBON DIOXIDE 18.3 mEq/L (21.0-31.0); CHLORIDE 116 mEq/L (98-107); CREATININE - SERUM 1.4 mg/dL (0.7-1.3); GFR AFRICAN-AMERICAN > 60.0 ml/min (>90); GFR NON AFRICAN-AMERICAN 53.7 ml/min; GLUCOSE 76 mg/dL (70-105); POTASSIUM SERUM 3.3 mEq/L (3.5-5.1); SODIUM SERUM 143 mEq/L (136-145)
[2017-06-29 06:00] LABS: MANUAL DIFF REQUIRED? YES
[2017-06-29] MEDS ORDERED: Piperacillin Sodium/Tazobact 3.375 gm Vial IV ONE (06:21)
[2017-06-29 06:25] LABS: BAND NEUTROPHILE 2 % (0-10); EOSINOPHIL 1 % (0-5); LYMPHOCYTE 24 % (20-50); MONOCYTE 4 % (2-10); NEUTROPHILS 69 % (40-80); TOTAL CELLS COUNTED 100
[2017-06-29] MEDS: INSULIN ASPART, RECOMBINANT 100 UNITS/ML SUBQ SCH ×2 (06:30→16:12)
[2017-06-29] MEDS ORDERED: KCL 20mEq/100mL Premix 20 MEQ/100 ML PIGGYBACK IV ONE (07:40)
[2017-06-29] MEDS: Chlorhexidine Gluconate 0.12% 15mL Mouthwash MM SCH (08:40)
[2017-06-29] MEDS: Levetiracetam 500 mg/5mL 5mL UDSyr *for ORAL USE ONLY GT SCH ×2 (09:19→16:02)
[2017-06-29] MEDS: predniSONE 5 mg/5 mL UDC GT SCH (09:19)
[2017-06-29] MEDS: Ferrous Sulfate 300 MG/5 ML UDC GT SCH (09:19)
[2017-06-29] MEDS: Multivitamin w/ Minerals Tab GT SCH (09:19)
[2017-06-29] MEDS: Docusate Sodium 100 mg/10 mL UD GT SCH (09:19)
--- NOTE | 2017-06-29 11:21 | General Progress Note ---
Subjective - Review of Systems Events since last encounter: patient on vent had successful g-tube replacement yesterday by dr landry toleration antibiotics well Objective - Results Result Diagrams: 06/29/17 04:20 06/29/17 04:20 Recent Labs: Laboratory Last Values WBC 5.7 Th/cmm (4.8-10.8) 06/29/17 04:20 RBC 2.87 Mil/cmm (3.80-5.80) L 06/29/17 04:20 Hgb 9.1 gm/dL (12-16) L 06/29/17 04:20 Hct 26.5 % (41.0-60) L 06/29/17 04:20 MCV 92.3 fl (80-99) 06/29/17 04:20 MCH 31.8 pg (27.0-31.0) H 06/29/17 04:20 MCHC Differential 34.4 pg (28.0-36.0) 06/29/17 04:20 RDW 18.7 % (11.5-20.0) 06/29/17 04:20 Plt Count 184 Th/cmm (150-400) 06/29/17 04:20 MPV 5.7 fl 06/29/17 04:20 Neutrophils % 66.9 % (40.0-80.0) 06/28/17 04:10 Band Neutrophils % 2 % (0-10) 06/29/17 04:20 Lymphocytes % 25.6 % (20.0-50.0) 06/28/17 04:10 Monocytes % 5.6 % (2.0-10.0) 06/28/17 04:10 Eosinophils % 1.5 % (0.0-5.0) 06/28/17 04:10 Basophils % 0.4 % (0.0-2.0) 06/28/17 04:10 Neutrophils (Manual) 69 % (40-80) 06/29/17 04:20 Lymphocytes 24 % (20-50) 06/29/17 04:20 Monocytes 4 % (2-10) 06/29/17 04:20 Eosinophils 1 % (0-5) 06/29/17 04:20 Basophils 0 % (0-3) 06/22/17 19:45 Metamyelocytes 1 % (0-0) H 06/22/17 19:45 Myelocytes 2 % 06/22/17 19:45 Platelet Estimate ADEQUATE (NORMAL) 06/23/17 04:20 Anisocytosis 1+ 06/26/17 09:00 PT 11.1 SECONDS (9.5-11.5) 06/28/17 04:10 INR 1.07 (0.5-1.4) 06/28/17 04:10 PTT (Actin FS) 24.5 SECONDS (26.0-38.0) L 06/28/17 04:10 Sodium 143 mEq/L (136-145) 06/29/17 04:20 Potassium 3.3 mEq/L (3.5-5.1) L 06/29/17 04:20 Chloride 116 mEq/L (98-107) H 06/29/17 04:20 Carbon Dioxide 18.3 mEq/L (21.0-31.0) L 06/29/17 04:20 Anion Gap 12.0 (7.0-16.0) 06/29/17 04:20 BUN 16 mg/dL (7-25) 06/29/17 04:20 Creatinine 1.4 mg/dL (0.7-1.3) H 06/29/17 04:20 Est GFR ( Amer) > 60.0 ml/min (>90) 06/29/17 04:20 Est GFR (Non-Af Amer) 53.7 ml/min 06/29/17 04:20 BUN/Creatinine Ratio 11.4 06/29/17 04:20 Glucose 76 mg/dL (70-105) 06/29/17 04:20 POC Glucose 78 MG/DL (70 - 105) 06/29/17 06:02 Whole Bld Lactic Acid 1.96 mmol/L (0.60-1.99) 06/22/17 19:45 Calcium 8.6 mg/dL (8.6-10.3) 06/29/17 04:20 Total Bilirubin 0.5 mg/dL (0.3-1.0) 06/25/17 04:15 AST 22 U/L (13-39) 06/25/17 04:15 ALT 32 U/L (7-52) 06/25/17 04:15 Alkaline Phosphatase 67 U/L (34-104) 06/25/17 04:15 Creatine Kinase 80 U/L (30-223) 06/22/17 19:45 Troponin I 0.01 ng/mL (0.01-0.05) 06/22/17 19:45 Total Protein 6.9 gm/dL (6.0-8.3) 06/25/17 04:15 Albumin 3.2 gm/dL (4.2-5.5) L 06/25/17 04:15 Globulin 3.7 gm/dL 06/25/17 04:15 Albumin/Globulin Ratio 0.9 (1.0-1.8) L 06/25/17 04:15 Urine Source CATH 06/22/17 19:30 Urine Color YELLOW 06/22/17 19:30 Urine Clarity CLOUDY (CLEAR) 06/22/17 19:30 Urine pH 7.5 (4.6 - 8.0) 06/22/17 19:30 Ur Specific [place] 1.015 (1.005-1.030) 06/22/17 19:30 Urine Protein 30 mg/dL (NEGATIVE) H 06/22/17 19:30 Urine Glucose (UA) NEGATIVE mg/dL (NEGATIVE) 06/22/17 19:30 Urine Ketones NEGATIVE mg/dL (NEGATIVE) 06/22/17 19:30 Urine Blood NEGATIVE (NEGATIVE) 06/22/17 19:30 Urine Nitrate POSITIVE (NEGATIVE) H 06/22/17 19:30 Urine Bilirubin NEGATIVE (NEGATIVE) 06/22/17 19:30 Urine Urobilinogen 0.2 E.U./dL (0.2 - 1.0) 06/22/17 19:30 Ur Leukocyte Esterase MODERATE (NEGATIVE) H 06/22/17 19:30 Urine RBC 0-2 /hpf (0-5) H 06/22/17 19:30 Urine WBC 6-10 /hpf (0-5) 06/22/17 19:30 Ur Epithelial Cells OCCASIONAL /lpf (FEW) 06/22/17 19:30 Urine Bacteria MANY /hpf (NONE SEEN) H 06/22/17 19:30 Stool Occult Blood NEGATIVE (NEGATIVE) 06/26/17 17:05 Vancomycin Trough 23.0 ug/mL (10-20) H 06/27/17 05:30 Blood Type O POSITIVE 06/26/17 11:10 Antibody Screen NEGATIVE 06/26/17 11:10 Crossmatch See Detail 06/26/17 11:10 - Physical Exam Vitals and I&O: Vital Signs Temp 98.6 F 06/29/17 10:00 Pulse 84 06/29/17 10:00 Resp 19 06/29/17 10:00 BP 157/87 06/29/17 10:00 Pulse Ox 100 06/29/17 10:00 Intake & Output 06/28/17 06/29/17 06/29/17 18:59 06:59 18:59 Intake Total 150 1890 Output Total 950 650 Balance -800 1240 Weight (lbs) 59.421 kg 59.421 kg Intake: Intake, IV Amount 100 1770 D5-0.9%Ns 1,000 ml @ 75 1720 mls/hr IV .[id number] [facility] Rx #:[id number] Piperacillin Sodium/ 100 50 Tazobact 3.375 gm In Sodium Chloride 0.9% 50 ml @ 100 mls/hr IV Q6HR [facility] Rx#:[id number] Oral 0 Tube Feeding 70 Other 50 50 Output: Urine 950 650 Other: # Bowel Movements 0 0 Weight Source Bedscale Bedscale Active Medications: Current Medications Acetaminophen (Tylenol) 650 mg GT Q4HR PRN PRN Reason: Pain or Fever >101 Stop: 08/23/17 15:37 Last Admin: 06/28/17 05:26 Dose: 650 mg Albuterol/Ipratropium (Duoneb Neb) 3 ml HHN Q6HRT [facility] Stop: 08/22/17 00:59 Last Admin: 06/29/17 06:51 Dose: 3 ml Albuterol/Ipratropium (Duoneb Neb) 3 ml HHN Q2HR PRN PRN Reason: Shortness of Breath Stop: 08/23/17 15:37 Amiodarone HCl (Cordarone) 200 mg GT DAILY [facility] Stop: 08/24/17 08:59 Last Admin: 06/29/17 09:19 Dose: 200 mg Ascorbic Acid (Vitamin C) 500 mg PO DAILY [facility] Stop: 08/24/17 12:29 Last Admin: 06/29/17 09:19 Dose: 500 mg Chlorhexidine Gluconate (Peridex) 15 ml MM 0800,2000 [facility] Stop: 08/22/17 07:59 Last Admin: 06/29/17 08:40 Dose: 15 ml Docusate Sodium (Colace) 100 mg GT DAILY [facility] Stop: 08/24/17 08:59 Last Admin: 06/29/17 09:19 Dose: 100 mg Enalaprilat (Vasotec) 2.5 mg IVP Q6HR PRN PRN Reason: SBP>160 Stop: 08/25/17 00:00 Last Admin: 06/29/17 03:26 Dose: 2.5 mg Ferrous Sulfate (Iron) 300 mg GT DAILY [facility] Stop: 08/24/17 08:59 Last Admin: 06/29/17 09:19 Dose: 300 mg Folic Acid (Folate) 1 mg GT DAILY [facility] Stop: 08/24/17 08:59 Last Admin: 06/29/17 09:19 Dose: 1 mg Gentamicin Sulfate (Gentak 0.3% Oph Soln) 1 drop RIGHT EYE Q6H [facility] Stop: 08/23/17 15:44 Last Admin: 06/29/17 03:25 Dose: 1 drop Hydralazine HCl (Apresoline) 10 mg GT Q6H PRN PRN Reason: SBP ABOVE 160 Stop: 08/23/17 15:37 Last Admin: 06/28/17 14:02 Dose: 10 mg Dextrose/Sodium Chloride (D5-0.9%Ns) 1,000 mls @ 75 mls/hr IV .[id number] [facility] Stop: 08/23/17 14:56 Last Infusion: 06/29/17 06:00 Dose: 75 mls/hr Piperacillin Sod/Tazobactam (Sod 3.375 gm/ Dextrose) 50 mls @ 100 mls/hr IV Q6HR [facility] Stop: 08/28/17 11:59 Insulin Aspart (Novolog) 0 units SUBQ BIDAC PAO PRN Reason: Protocol Stop: 08/23/17 16:29 Last Admin: 06/29/17 06:30 Dose: Not Given Levetiracetam (Keppra) 500 mg GT BID [facility] Stop: 08/23/17 16:59 Last Admin: 06/29/17 09:19 Dose: 500 mg Magnesium Hydroxide (Milk Of Magnesia) 30 ml GT BID PRN PRN Reason: Constipation Stop: 08/23/17 15:37 Metoclopramide HCl (Reglan) 5 mg GT Q6H PRN PRN Reason: gerd Stop: 08/23/17 15:37 Metoprolol Tartrate (Lopressor) 25 mg GT BID [facility] Stop: 08/26/17 09:59 Last Admin: 06/29/17 09:19 Dose: 25 mg Morphine Sulfate (Morphine) 2 mg IVP Q4H PRN PRN Reason: Pain (Severe) Stop: 08/26/17 09:19 Last Admin: 06/29/17 02:40 Dose: 2 mg Morphine Sulfate (Morphine) 1 mg IVP Q4H PRN PRN Reason: Pain (Moderate) Stop: 08/26/17 09:18 Pantoprazole Sodium (Protonix) 40 mg IVP DAILY [facility] Stop: 08/24/17 08:59 Last Admin: 06/29/17 09:19 Dose: 40 mg Prednisone (Prednisone) 5 mg GT DAILY [facility] Stop: 08/24/17 08:59 Last Admin: 06/29/17 09:19 Dose: 5 mg General: No acute distress HEENT: Atraumatic Cardiovascular: Regular rate, Normal S1, Normal S2 Lungs: Clear to auscultation Abdomen: Bowel sounds - Procedures Procedures: Procedures Procedure Code Date BLOOD TRANSFUSION SERVICE 44929 05/17/[address] GASTROSTOMY TUBE 57108 06/22/17 INSERTION OF FEEDING DEVICE INTO STOMACH, PERC APPROACH [id number] 06/22/17 RESPIRATORY VENTILATION, 24-96 CONSECUTIVE HOURS [id number] 05/24/17 RESPIRATORY VENTILATION, GREATER THAN 96 CONSECUTIVE HOURS [id number] 06/22/17 TRANSFUSE NONAUT RED BLOOD CELLS IN PERIPH VEIN, PERC 11296T1 05/17/17 Assessment/Plan - Problem List Patient Problems: All Active Problems Abdominal wall cellulitis (Acute) L03.311 Anoxic encephalopathy (Acute) Asthma (Acute) J45.909 CAD (coronary artery disease) (Acute) I25.10 COPD (chronic obstructive pulmonary disease) (Acute) Cardiopulmonary arrest (Acute) I46.9 Conjunctivitis (Acute) H10.9 DM (diabetes mellitus) type 2, uncontrolled, with ketoacidosis (Acute) E11.10 Dysphagia (Acute) R13.10 G tube feedings (Acute) Z93.1 GERD (gastroesophageal reflux disease) (Acute) K21.9 HTN (hypertension) (Acute) I10 PUD (peptic ulcer disease) (Acute) K27.9 Respiratory failure (Acute) J96.90 Seizure disorder (Acute) G40.909 Ventilator dependence (Acute) Z99.11 - Plan Plan: antibiotics monitor vitals diet labs pain management vent support Nutritional Asmnt/Malnutr-PDOC - Dietary Evaluation Malnutrition Findings (Please click <Entered> for more info): Nutritional Asmnt/Malnutrition Start: 06/23/17 14: 03 Text: Status: Complete Freq: Document 06/23/17 14:03 KEIRY (Rec: 06/23/17 14:26 KEIRY CONTRERAS-FN) Nutritional Asmnt/Malnutrition Patient General Information Nutritional Screening High Risk Diagnosis G-tube site cellulitis Pertinent Medical Hx/Surgical Hx HTN, DM, asthma/COPD, dyslipidemia, PUD/GERD, ESRD, arthritis, PEG/Gtube Subjective Information Pt seen on vent via trach. Current Diet Order/ Nutrition Support no diet order Pertinent Medications 06/23 Na 133, K 3.2, Cl 97, BUN 40, Cr 1.2, Glucose 90, CA 9. 9 Pertinent Labs piperacillin, vancomycin Nutritional Hx/Data Height 1.3 m Height (Calculated Centimeters) 129.5 Current Weight (lbs) 60.781 kg Weight (Calculated Kilograms) 60.8 Weight (Calculated Grams) 62997.4 [place] Body Weight 82 Body Mass Index (BMI) 36.2 GI Symptoms GI Symptoms None Last BM 06/23 Difficult in: None Usual diet at home From chart: Fibersource HN 60ml/hr x 20hr, providing 1440kcal, 65g protein. Skin Integrity/Comment: cellulitis at g-tube site reddened to buttock Estimated Nutritional Goals BEE in Kcals: Using Current wt Calories/Kcals/Kg 20-25 Kcals Calculated 1962-0656 Protein: Using Current wt Protein g/k Protein Calculated 61 Fluid: ml 1220-1525ml (1ml/kcal) Nutritional Problem 1. Problem Problem altered nutrition related labs Etiology electrolytes imbalanced, hx of ESRD Signs/Symptoms: Na 133, K 3.2, Cl 97, BUN 40 Intervention/Recommendation Comments 1. Monitor NPO status. 2. If tubefeeding needed, recommend fibersource HN 60ml/ hr x 20hr. This will provide 1440kcal and 65g protein, 972ml free water. 3. Monitor wt, labs and skin integrity 4. F/U as high risk in 2-3 days, 06/25-06/26 Expected Outcomes/Goals Expected Outcomes/Goals 1. Pt to meet at least 75% of nutritional needs via nutrition support with tolerance 2. Wt stability, skin to remain intact, labs to approach WNL.
--- NOTE | 2017-06-29 12:03 | GI Progress Note ---
Subjective - Review of Systems Service Date: 06/29/17 Subjective: Residual noted to be 90cc from G tube Objective - Results Result Diagrams: 06/29/17 04:20 06/29/17 04:20 Recent Labs: Laboratory Last Values WBC 5.7 Th/cmm (4.8-10.8) 06/29/17 04:20 RBC 2.87 Mil/cmm (3.80-5.80) L 06/29/17 04:20 Hgb 9.1 gm/dL (12-16) L 06/29/17 04:20 Hct 26.5 % (41.0-60) L 06/29/17 04:20 MCV 92.3 fl (80-99) 06/29/17 04:20 MCH 31.8 pg (27.0-31.0) H 06/29/17 04:20 MCHC Differential 34.4 pg (28.0-36.0) 06/29/17 04:20 RDW 18.7 % (11.5-20.0) 06/29/17 04:20 Plt Count 184 Th/cmm (150-400) 06/29/17 04:20 MPV 5.7 fl 06/29/17 04:20 Neutrophils % 66.9 % (40.0-80.0) 06/28/17 04:10 Band Neutrophils % 2 % (0-10) 06/29/17 04:20 Lymphocytes % 25.6 % (20.0-50.0) 06/28/17 04:10 Monocytes % 5.6 % (2.0-10.0) 06/28/17 04:10 Eosinophils % 1.5 % (0.0-5.0) 06/28/17 04:10 Basophils % 0.4 % (0.0-2.0) 06/28/17 04:10 Neutrophils (Manual) 69 % (40-80) 06/29/17 04:20 Lymphocytes 24 % (20-50) 06/29/17 04:20 Monocytes 4 % (2-10) 06/29/17 04:20 Eosinophils 1 % (0-5) 06/29/17 04:20 Basophils 0 % (0-3) 06/22/17 19:45 Metamyelocytes 1 % (0-0) H 06/22/17 19:45 Myelocytes 2 % 06/22/17 19:45 Platelet Estimate ADEQUATE (NORMAL) 06/23/17 04:20 Anisocytosis 1+ 06/26/17 09:00 PT 11.1 SECONDS (9.5-11.5) 06/28/17 04:10 INR 1.07 (0.5-1.4) 06/28/17 04:10 PTT (Actin FS) 24.5 SECONDS (26.0-38.0) L 06/28/17 04:10 Sodium 143 mEq/L (136-145) 06/29/17 04:20 Potassium 3.3 mEq/L (3.5-5.1) L 06/29/17 04:20 Chloride 116 mEq/L (98-107) H 06/29/17 04:20 Carbon Dioxide 18.3 mEq/L (21.0-31.0) L 06/29/17 04:20 Anion Gap 12.0 (7.0-16.0) 06/29/17 04:20 BUN 16 mg/dL (7-25) 06/29/17 04:20 Creatinine 1.4 mg/dL (0.7-1.3) H 06/29/17 04:20 Est GFR ( Amer) > 60.0 ml/min (>90) 06/29/17 04:20 Est GFR (Non-Af Amer) 53.7 ml/min 06/29/17 04:20 BUN/Creatinine Ratio 11.4 06/29/17 04:20 Glucose 76 mg/dL (70-105) 06/29/17 04:20 POC Glucose 78 MG/DL (70 - 105) 06/29/17 06:02 Whole Bld Lactic Acid 1.96 mmol/L (0.60-1.99) 06/22/17 19:45 Calcium 8.6 mg/dL (8.6-10.3) 06/29/17 04:20 Total Bilirubin 0.5 mg/dL (0.3-1.0) 06/25/17 04:15 AST 22 U/L (13-39) 06/25/17 04:15 ALT 32 U/L (7-52) 06/25/17 04:15 Alkaline Phosphatase 67 U/L (34-104) 06/25/17 04:15 Creatine Kinase 80 U/L (30-223) 06/22/17 19:45 Troponin I 0.01 ng/mL (0.01-0.05) 06/22/17 19:45 Total Protein 6.9 gm/dL (6.0-8.3) 06/25/17 04:15 Albumin 3.2 gm/dL (4.2-5.5) L 06/25/17 04:15 Globulin 3.7 gm/dL 06/25/17 04:15 Albumin/Globulin Ratio 0.9 (1.0-1.8) L 06/25/17 04:15 Urine Source CATH 06/22/17 19:30 Urine Color YELLOW 06/22/17 19:30 Urine Clarity CLOUDY (CLEAR) 06/22/17 19:30 Urine pH 7.5 (4.6 - 8.0) 06/22/17 19:30 Ur Specific [place] 1.015 (1.005-1.030) 06/22/17 19:30 Urine Protein 30 mg/dL (NEGATIVE) H 06/22/17 19:30 Urine Glucose (UA) NEGATIVE mg/dL (NEGATIVE) 06/22/17 19:30 Urine Ketones NEGATIVE mg/dL (NEGATIVE) 06/22/17 19:30 Urine Blood NEGATIVE (NEGATIVE) 06/22/17 19:30 Urine Nitrate POSITIVE (NEGATIVE) H 06/22/17 19:30 Urine Bilirubin NEGATIVE (NEGATIVE) 06/22/17 19:30 Urine Urobilinogen 0.2 E.U./dL (0.2 - 1.0) 06/22/17 19:30 Ur Leukocyte Esterase MODERATE (NEGATIVE) H 06/22/17 19:30 Urine RBC 0-2 /hpf (0-5) H 06/22/17 19:30 Urine WBC 6-10 /hpf (0-5) 06/22/17 19:30 Ur Epithelial Cells OCCASIONAL /lpf (FEW) 06/22/17 19:30 Urine Bacteria MANY /hpf (NONE SEEN) H 06/22/17 19:30 Stool Occult Blood NEGATIVE (NEGATIVE) 06/26/17 17:05 Vancomycin Trough 23.0 ug/mL (10-20) H 06/27/17 05:30 Blood Type O POSITIVE 06/26/17 11:10 Antibody Screen NEGATIVE 06/26/17 11:10 Crossmatch See Detail 06/26/17 11:10 - Physical Exam Vitals and I&O: Vital Signs Temp 98.6 F 06/29/17 11:00 Pulse 80 06/29/17 11:32 Resp 16 06/29/17 11:00 BP 140/81 06/29/17 11:00 Pulse Ox 100 06/29/17 11:32 Intake & Output 06/28/17 06/29/17 06/29/17 18:59 06:59 18:59 Intake Total 150 1890 Output Total 950 650 Balance -800 1240 Weight (lbs) 59.421 kg 59.421 kg Intake: Intake, IV Amount 100 1770 D5-0.9%Ns 1,000 ml @ 75 1720 mls/hr IV .[id number] [facility] Rx #:[id number] Piperacillin Sodium/ 100 50 Tazobact 3.375 gm In Sodium Chloride 0.9% 50 ml @ 100 mls/hr IV Q6HR [facility] Rx#:[id number] Oral 0 Tube Feeding 70 Other 50 50 Output: Urine 950 650 Other: # Bowel Movements 0 0 Weight Source Bedscale Bedscale Active Medications: Current Medications Acetaminophen (Tylenol) 650 mg GT Q4HR PRN PRN Reason: Pain or Fever >101 Stop: 08/23/17 15:37 Last Admin: 06/28/17 05:26 Dose: 650 mg Albuterol/Ipratropium (Duoneb Neb) 3 ml HHN Q6HRT [facility] Stop: 08/22/17 00:59 Last Admin: 06/29/17 06:51 Dose: 3 ml Albuterol/Ipratropium (Duoneb Neb) 3 ml HHN Q2HR PRN PRN Reason: Shortness of Breath Stop: 08/23/17 15:37 Amiodarone HCl (Cordarone) 200 mg GT DAILY [facility] Stop: 08/24/17 08:59 Last Admin: 06/29/17 09:19 Dose: 200 mg Ascorbic Acid (Vitamin C) 500 mg PO DAILY [facility] Stop: 08/24/17 12:29 Last Admin: 06/29/17 09:19 Dose: 500 mg Chlorhexidine Gluconate (Peridex) 15 ml MM 0800,1999 [facility] Stop: 08/22/17 07:59 Last Admin: 06/29/17 08:40 Dose: 15 ml Docusate Sodium (Colace) 100 mg GT DAILY [facility] Stop: 08/24/17 08:59 Last Admin: 06/29/17 09:19 Dose: 100 mg Enalaprilat (Vasotec) 2.5 mg IVP Q6HR PRN PRN Reason: SBP>160 Stop: 08/25/17 00:00 Last Admin: 06/29/17 03:26 Dose: 2.5 mg Ferrous Sulfate (Iron) 300 mg GT DAILY [facility] Stop: 08/24/17 08:59 Last Admin: 06/29/17 09:19 Dose: 300 mg Folic Acid (Folate) 1 mg GT DAILY [facility] Stop: 08/24/17 08:59 Last Admin: 06/29/17 09:19 Dose: 1 mg Gentamicin Sulfate (Gentak 0.3% Ophth Soln) 1 drop RIGHT EYE Q6H [facility] Stop: 08/23/17 15:44 Last Admin: 06/29/17 11:10 Dose: 1 drop Hydralazine HCl (Apresoline) 10 mg GT Q6H PRN PRN Reason: SBP ABOVE 160 Stop: 08/23/17 15:37 Last Admin: 06/28/17 14:02 Dose: 10 mg Dextrose/Sodium Chloride (D5-0.9%Ns) 1,000 mls @ 75 mls/hr IV .[id number] [facility] Stop: 08/23/17 14:56 Last Infusion: 06/29/17 06:00 Dose: 75 mls/hr Piperacillin Sod/Tazobactam (Sod 3.375 gm/ Dextrose) 50 mls @ 100 mls/hr IV Q6HR [facility] Stop: 08/28/17 11:59 Last Admin: 06/29/17 11:41 Dose: 100 mls/hr Insulin Aspart (Novolog) 0 units SUBQ BIDAC PAO PRN Reason: Protocol Stop: 08/23/17 16:29 Last Admin: 06/29/17 06:30 Dose: Not Given Levetiracetam (Keppra) 500 mg GT BID [facility] Stop: 08/23/17 16:59 Last Admin: 06/29/17 09:19 Dose: 500 mg Magnesium Hydroxide (Milk Of Magnesia) 30 ml GT BID PRN PRN Reason: Constipation Stop: 08/23/17 15:37 Metoclopramide HCl (Reglan) 5 mg GT Q6H PRN PRN Reason: gerd Stop: 08/23/17 15:37 Metoclopramide HCl (Reglan) 5 mg GT Q8HR [facility] Stop: 08/28/17 12:59 Metoprolol Tartrate (Lopressor) 25 mg GT BID [facility] Stop: 08/26/17 09:59 Last Admin: 06/29/17 09:19 Dose: 25 mg Morphine Sulfate (Morphine) 2 mg IVP Q4H PRN PRN Reason: Pain (Severe) Stop: 08/26/17 09:19 Last Admin: 06/29/17 02:40 Dose: 2 mg Morphine Sulfate (Morphine) 1 mg IVP Q4H PRN PRN Reason: Pain (Moderate) Stop: 08/26/17 09:18 Pantoprazole Sodium (Protonix) 40 mg IVP DAILY [facility] Stop: 08/24/17 08:59 Last Admin: 06/29/17 09:19 Dose: 40 mg Potassium Chloride (Potassium Chloride Elixir) 20 meq GT DAILY [facility] Stop: 08/29/17 08:59 Prednisone (Prednisone) 5 mg GT DAILY [facility] Stop: 08/24/17 08:59 Last Admin: 06/29/17 09:19 Dose: 5 mg General: No acute distress HEENT: Atraumatic Cardiovascular: Regular rate, Normal S1, Normal S2 Lungs: Clear to auscultation Abdomen: Bowel sounds - Procedures Procedures: Procedures Procedure Code Date BLOOD TRANSFUSION SERVICE 48690 05/17/[address] GASTROSTOMY TUBE 26110 06/22/17 INSERTION OF FEEDING DEVICE INTO STOMACH, PERC APPROACH [id number] 06/22/17 RESPIRATORY VENTILATION, 24-96 CONSECUTIVE HOURS [id number] 05/24/17 RESPIRATORY VENTILATION, GREATER THAN 96 CONSECUTIVE HOURS [id number] 06/22/17 TRANSFUSE NONAUT RED BLOOD CELLS IN PERIPH VEIN, PERC [id number] 05/17/17 Assessment/Plan - Problem List Patient Problems: All Active Problems Abdominal wall cellulitis (Acute) L03.311 Anoxic encephalopathy (Acute) Asthma (Acute) J45.909 CAD (coronary artery disease) (Acute) I25.10 COPD (chronic obstructive pulmonary disease) (Acute) Cardiopulmonary arrest (Acute) I46.9 Conjunctivitis (Acute) H10.9 DM (diabetes mellitus) type 2, uncontrolled, with ketoacidosis (Acute) E11.10 Dysphagia (Acute) R13.10 G tube feedings (Acute) Z93.1 GERD (gastroesophageal reflux disease) (Acute) K21.9 HTN (hypertension) (Acute) I10 PUD (peptic ulcer disease) (Acute) K27.9 Respiratory failure (Acute) J96.90 Seizure disorder (Acute) G40.909 Ventilator dependence (Acute) Z99.11 - Assessment Assessment: # G tube site cellulitis # Coffee ground emesis EGd on 06/29 found esophageal stricture, and the pt's G tube was replaced. No gastric/duodenal mass or ulcer. Plan: - cont abx, cellulitis appears improved - will add reglan 5mg q8 for high gastric residual. - cont to check residuals, hold for > 100cc - cycle hgb, transfuse to keep > 8 - PPI
[2017-06-30] MEDS ORDERED: Potassium Chloride Elixir 20 mEq /15 mL UDC GT SCH (09:00)
== END 2017-06-29 18:30 | DRG 393 ==
LOC: ER 18:42 → ICU 20:43
PROVIDERS: ADMIT Internal Medicine; ATTEND Internal Medicine
PROC: 5A1955Z Respiratory Ventilation, Greater than 96 Consecutive Hours (ICD-10-PCS; principal; 2017-06-22)
PROC: 30233N1 Transfusion of Nonautologous Red Blood Cells into Peripheral Vein, Percutaneous Approach (ICD-10-PCS; 2017-06-26)
PROC: 0DH63UZ Insertion of Feeding Device into Stomach, Percutaneous Approach (ICD-10-PCS; 2017-06-28)
DX: K94.22 Gastrostomy infection (principal); A41.9 Sepsis, unspecified organism; J96.20 Acute and chronic respiratory failure, unspecified whether with hypoxia or hypercapnia; N18.6 End stage renal disease; J18.9 Pneumonia, unspecified organism; G93.1 Anoxic brain damage, not elsewhere classified; Z99.11 Dependence on respirator [ventilator] status; I13.2 Hypertensive heart and chronic kidney disease with heart failure and with stage 5 chronic kidney disease, or end stage renal disease; L03.311 Cellulitis of abdominal wall; N39.0 Urinary tract infection, site not specified; K92.0 Hematemesis; K22.2 Esophageal obstruction; I25.10 Atherosclerotic heart disease of native coronary artery without angina pectoris; R13.10 Dysphagia, unspecified; J44.9 Chronic obstructive pulmonary disease, unspecified; I50.9 Heart failure, unspecified; K27.9 Peptic ulcer, site unspecified, unspecified as acute or chronic, without hemorrhage or perforation; K21.9 Gastro-esophageal reflux disease without esophagitis; G40.909 Epilepsy, unspecified, not intractable, without status epilepticus; E78.5 Hyperlipidemia, unspecified; M19.90 Unspecified osteoarthritis, unspecified site; Y83.8 Other surgical procedures as the cause of abnormal reaction of the patient, or of later complication, without mention of misadventure at the time of the procedure; Y82.8 Other medical devices associated with adverse incidents; E11.22 Type 2 diabetes mellitus with diabetic chronic kidney disease; H10.89 Other conjunctivitis; F03.90 Unspecified dementia, unspecified severity, without behavioral disturbance, psychotic disturbance, mood disturbance, and anxiety; Z83.3 Family history of diabetes mellitus; Z82.49 Family history of ischemic heart disease and other diseases of the circulatory system; Z93.0 Tracheostomy status; Z79.899 Other long term (current) drug therapy; Z86.74 Personal history of sudden cardiac arrest; Z87.01 Personal history of pneumonia (recurrent)
CPT/HCPCS: 36415-UA; 71045-TC; 80048-TC; 80053-TC; 80202-TC; 81001-TC; 82270-TC; 82550-TC; 82948-90; 83605; 84484-TC; 85007-TC; 85025-TC; 85027-TC; 85610-TC; 85730-TC; 86850-TC; 86900-TC; 86901-TC; 86922-TC; 87070; 87086-90; 90799; 93005; 94002; 94003; 94640; C9113; J0696; J1815; J2543; J2704; J3370; J3480; J7040; J7042; J7512; P9016; Z7506; Z7508; Z7610